=== PATIENT | female | born 1955 | race Caucasian/White ===

== ENCOUNTER → 2016-06-06 | Outpatient (CLI) | payer OTHER ==
[~2016-06-06] MED LIST: CETI10TA84 PO; CYAN10005 PO; DILT120C PO; FLUT0.0529; HYG25 PO; INSU100I17 SC; INSU100I2 SQ; INSU1INJ15 SQ; INSUINJ12 SQ; LOSA100T65 PO; METF1TAB53 PO; NORT10CA2 PO; PANT1TAB3 PO; RANI150T3 PO; SIMV20TA2 PO
[2016-06-06 17:52] LABS: HEMATOCRIT 37.7 % (37-47); MEAN CELL VOLUME 78.9 fL (80-100); MEAN CORPUSCULAR HEMOGLOBIN 25.9 pg (25-34); MEAN CORPUSCULAR HGB CONC 32.9 g/dl (32-36); MEAN PLATELET VOLUME 9.3 fL (7.4-10.4); PLATELET COUNT 368 K/uL (130-400); RED BLOOD COUNT 4.78 M/uL (4.2-5.4); WHITE BLOOD COUNT 11.41 K/uL (4.8-10.8)
[2016-06-06 18:59] LABS: ALT/SGPT 26 U/L (12-78); AST/SGOT 18 U/L (15-37); BLOOD UREA NITROGEN 16 mg/dl (7-18); BUN/CREATININE RATIO 13.3 (10-20); CALCIUM 9.3 mg/dl (8.5-10.1); CARBON DIOXIDE 29 mmol/L (21-32); CHLORIDE 104 mmol/L (98-107); GLUCOSE 100 mg/dl (70-99); POTASSIUM 3.5 mmol/L (3.5-5.1); SODIUM 141 mmol/L (136-145)
[2016-06-06 19:02] LABS: ALB/GLOB RATIO 0.9 (0.9-2); ALKALINE PHOSPHATASE 117 U/L (45-117)
== END | disposition home or self-care (01) ==
LOC: C.LABPVFM 14:45
PROVIDERS: ATTEND Internal Medicine Cardiovascular Disease
DX: R00.2 Palpitations (principal)

== ENCOUNTER → 2016-07-21 | Outpatient (CLI) | payer OTHER ==
[~2016-07-21] MED LIST changes: -PANT1TAB3 PO; +PANT1TAB48 PO
[2016-07-21 13:10] LABS: ALT/SGPT 21 U/L (12-78); AST/SGOT 12 U/L (15-37); BLOOD UREA NITROGEN 15 mg/dl (7-18); CALCIUM 9.2 mg/dl (8.5-10.1); CARBON DIOXIDE 28 mmol/L (21-32); CHLORIDE 103 mmol/L (98-107); GLUCOSE 130 mg/dl (70-99); POTASSIUM 4.1 mmol/L (3.5-5.1); SODIUM 141 mmol/L (136-145)
[2016-07-21 13:13] LABS: ALB/GLOB RATIO 0.9 (0.9-2); ALKALINE PHOSPHATASE 116 U/L (45-117); CHOLESTEROL 123 mg/dl (0-200); CHOLESTEROL/HDL RATIO 3.3; HDL CHOLESTEROL 37 mg/dl; LDL CHOLESTEROL CALCULATED 45 mg/dl; TRIGLYCERIDES 205 mg/dl (0-150); VERY LOW DENSITY LIPOPROT CALC 41 mg/dl
[2016-07-21 13:33] LABS: ESTIMATED AVERAGE GLUCOSE 143 mg/dl; HA1C FLAG Normal (Normal)
[2016-07-21 13:36] LABS: RATIO 18.3 mcg/mg (0-30.0)
== END | disposition home or self-care (01) ==
LOC: C.LABPVFM 09:44
PROVIDERS: ATTEND Family Medicine
DX: I10 Essential (primary) hypertension (principal); E78.00 Pure hypercholesterolemia, unspecified; K21.9 Gastro-esophageal reflux disease without esophagitis; E11.49 Type 2 diabetes mellitus with other diabetic neurological complication; E11.65 Type 2 diabetes mellitus with hyperglycemia

== ENCOUNTER → 2016-09-14 | Outpatient (CLI) | payer OTHER ==
--- NOTE | 2016-09-14 13:39 | DIAGNOSTIC IMAGING REPORT ---
CHEST AND ABDOMEN 2 VIEWS HISTORY: LEFT FLANK PAIN COMPARISON: FINDINGS: Cardiac silhouette is top normal in size. A few linear densities at the left lung base favor subsegmental atelectasis. The right lung is clear. No pleural effusions. No pneumothorax. No pneumoperitoneum. No pneumatosis. Cholecystectomy. The bowel gas pattern is unremarkable. No dilated loops of bowel to suggest obstruction. Round calcifications in the deep pelvis are nonspecific but favor phleboliths. No renal or ureteral calculi identified. IMPRESSION: No acute cardiopulmonary process. No evidence for bowel obstruction. Electronically signed by: Riccardo Stallworth M.D. 09/14/2016 1:37 PM Dictated Date/Time: 09/14/2016 1:25 PM
== END | disposition home or self-care (01) ==
LOC: C.RADPV 11:52
PROVIDERS: ATTEND Family Medicine
DX: R10.9 Unspecified abdominal pain (principal)

== ENCOUNTER → 2016-12-03 | Outpatient (CLI) | payer OTHER ==
[2016-12-03 13:26] LABS: ESTIMATED AVERAGE GLUCOSE 166 mg/dl; HA1C FLAG Normal (Normal)
[2016-12-03 13:38] LABS: ALT/SGPT 26 U/L (12-78); AST/SGOT 17 U/L (15-37); BLOOD UREA NITROGEN 20 mg/dl (7-18); BUN/CREATININE RATIO 20.1 (10-20); CALCIUM 9.8 mg/dl (8.5-10.1); CARBON DIOXIDE 26 mmol/L (21-32); CHLORIDE 106 mmol/L (98-107); GLUCOSE 92 mg/dl (70-99); POTASSIUM 3.7 mmol/L (3.5-5.1); SODIUM 141 mmol/L (136-145)
[2016-12-03 13:41] LABS: ALB/GLOB RATIO 0.8 (0.9-2); ALKALINE PHOSPHATASE 122 U/L (45-117); CHOLESTEROL 135 mg/dl (0-200); CHOLESTEROL/HDL RATIO 3.4; HDL CHOLESTEROL 40 mg/dl; LDL CHOLESTEROL CALCULATED 41 mg/dl; TRIGLYCERIDES 269 mg/dl (0-150); VERY LOW DENSITY LIPOPROT CALC 54 mg/dl
[2016-12-03 14:20] LABS: RATIO 31.8 mcg/mg (0-30.0)
== END | disposition home or self-care (01) ==
LOC: C.LABPVFM 09:44
PROVIDERS: ATTEND Family Medicine
DX: K21.9 Gastro-esophageal reflux disease without esophagitis (principal); F41.8 Other specified anxiety disorders; E11.49 Type 2 diabetes mellitus with other diabetic neurological complication; E11.65 Type 2 diabetes mellitus with hyperglycemia; R00.2 Palpitations; E78.00 Pure hypercholesterolemia, unspecified

== ENCOUNTER → 2017-01-24 | Outpatient (CLI) | payer OTHER | END | disposition home or self-care (01) | LOC: C.PAPS 08:27 | PROVIDERS: ATTEND Family Medicine | DX: Z12.4 Encounter for screening for malignant neoplasm of cervix (principal) ==

== ENCOUNTER → 2017-02-19 | Outpatient (CLI) | payer OTHER | END | disposition home or self-care (01) | LOC: C.MAMM 09:53 | PROVIDERS: ATTEND Family Medicine | DX: E28.319 Asymptomatic premature menopause (principal) ==

== ENCOUNTER → 2017-02-21 | Outpatient (CLI) | payer OTHER ==
--- NOTE | 2017-02-21 15:58 | MAMMOGRAPHY REPORT ---
BILATERAL DIGITAL SCREENING MAMMOGRAM TOMOSYNTHESIS WITH CAD: 02/21/2017 CLINICAL HISTORY: Routine screening. TECHNIQUE: Breast tomosynthesis in addition to standard 2D mammography was performed. Current study was also evaluated with a Computer Aided Detection (CAD) system. COMPARISON: Comparison is made to exams dated: 02/21/2016 mammogram, 02/17/2015 mammogram, 01/11/2014 m ammogram, 01/07/2013 mammogram, 01/07/2012 mammogram, and 01/01/2011 mammogram - [facility] er. BREAST COMPOSITION: There are scattered areas of fibroglandular density in both breasts. FINDINGS: No suspicious masses, calcifications, or areas of architectural distortion are noted in ei ther breast. There has been no significant interval change compared to prior exams. IMPRESSION: ACR BI-RADS CATEGORY 1: NEGATIVE There is no mammographic evidence of malignancy. A 1 year screening mammogram is recommended. The pa tient will receive written notification of the results. Approximately 10% of breast cancers are not detected with mammography. A negative mammographic report should not delay biopsy if a clinically suggestive mass is present. Chloe Segovia M.D. ah/:02/21/2017 15:41:35 Reading Teacher: Nitish MURRIETA(Jennifer)(M), [facility] letter sent: Normal 1/2 BI-RADS Code: ACR BI-RADS Category 1: Negative
== END | disposition home or self-care (01) ==
LOC: C.MAMM 10:43
PROVIDERS: ATTEND Family Medicine
DX: Z12.31 Encounter for screening mammogram for malignant neoplasm of breast (principal)

== ENCOUNTER → 2017-06-10 | Outpatient (CLI) | payer OTHER ==
[~2017-06-10] MED LIST changes: +PANT1TAB3 PO; -PANT1TAB48 PO
[2017-06-10 18:42] LABS: ALBUMIN 3.8 gm/dl (3.4-5.0); ALT/SGPT 21 U/L (12-78); AST/SGOT 14 U/L (15-37); BLOOD UREA NITROGEN 19 mg/dl (7-18); CALCIUM 9.3 mg/dl (8.5-10.1); CARBON DIOXIDE 27 mmol/L (21-32); CREATININE 1.08 mg/dl (0.60-1.20); GLUCOSE 55 mg/dl (70-99); POTASSIUM 3.7 mmol/L (3.5-5.1); SODIUM 138 mmol/L (136-145)
[2017-06-10 18:45] LABS: HEMOGLOBIN A1C 6.8 % (4.5-5.6)
[2017-06-10 18:51] LABS: ALKALINE PHOSPHATASE 108 U/L (45-117); CHOLESTEROL 134 mg/dl (0-200); LDL CHOLESTEROL CALCULATED 52 mg/dl; TOTAL PROTEIN 8.4 gm/dl (6.4-8.2)
== END | disposition home or self-care (01) ==
LOC: C.LABPVFM 11:37
PROVIDERS: ATTEND Family Medicine
DX: I10 Essential (primary) hypertension (principal); E78.00 Pure hypercholesterolemia, unspecified; G43.909 Migraine, unspecified, not intractable, without status migrainosus; E11.49 Type 2 diabetes mellitus with other diabetic neurological complication; E11.65 Type 2 diabetes mellitus with hyperglycemia; F41.8 Other specified anxiety disorders; I47.1 Supraventricular tachycardia; Z11.59 Encounter for screening for other viral diseases; E83.42 Hypomagnesemia

== ENCOUNTER → 2017-09-29 | Outpatient (CLI) | payer OTHER ==
[~2017-09-29] MED LIST changes: +DILT-213 PO; -DILT120C PO
--- NOTE | 2017-09-30 05:39 | PAP/PSG TECHNICIAN REPORT ---
[facility] [employer] Polysomnogram Report Study name: None Report date: 09/30/2017 Study date: 09/29/2017 Referring Physician: Lewis Mcknight M.D. Name: MARJORIE VALE Interpreting Physician: Lewis Mcknight M.D. Date of : 1955 First [employer] Sander[facility] Sex: Female Age: 62 StudyType: PSG PAP Weight: 256 lbs Height: 62 years, Height 5' 7" Neck Circum: 18 inches BMI: 40.09 Medications: Atorvastatin Calcium 20 mg, Cetirizine 10 mg, Chlorthaldone 25 mg, Diltiazem 120 mg, Doxycycline Monohydrate 100 mg, Escitalopram Oxalate 10 mg, Fluticasone Propionate 50 MCG/ACT, Losartan Potassium 100 mg, Magnesium 250 mg, Metformin 1000 mg, nocolog, Ranitidine 150 mg, Topiramate 50 mg, Vitamin B-12 1000 MCG, Vitamin D 1000 units Patient History 62 yr. old female here for a new titration sleep study. Patient had a HST that showed an CHARANJIT of 58.3. ESS 19/21 (patient does not drive) Parameters Monitored NPSG: E1-M2, E2-M1, Fp1-M2, Fp2-M1, F3-M2, F4-M2, F4-M1, C3-M2, C4-M2, C4-M1, O1-M2, O2-M2, O2-M1, T3-M2, T4-M1, P3-M2, P4-M1, CHIN1, CHIN2, HR, EKG, Legs, PFLOW, SNOR, FLOW, CFLOW, Tidal Volume, THOR, ABDO, SpO2, PLTH, CPRESS, ETCO2 Wave, ETCO2, pH Sleep Architecture Sleep Stages Time at Lights Off 10:43:46 PM STAGES Time (min.) TST (%) Time at Lights On 5:26:16 AM Wake 65.0 -- Total Recording Time (TRT) 402.50 min. N1 23.0 7 Total Sleep Period (TSP) 388.0 min. N2 156.0 46 Total Sleep Time (TST) 337.5min. N3 10.0 3 Awake Time 65.0 min. REM 148.5 44 Wake after Sleep Onset 50.5 min. Sleep Efficiency (SE) 84 % Sleep Onset Latency (STACEY) 14.5 min. Number of Stage 1 Shifts None Awakenings 6 Stage Changes 40 Number of REM periods 3 REM 148.5 44 REM Latency 143.0 min. NREM 189.0 56 Body Position Analysis Supine Right Left Side Prone Vertical Total Sleep Time (min.) 346.4 0.0 7.3 7.27 0.0 0.7 Total Sleep Time (%) 98% 0% 2% 2 0% N/A% Total Sleep Time REM (min.) 148.5 0.0 0.0 None 0.0 0.0 Total Sleep Time NREM (min.) 181.7 0.0 7.3 None 0.0 0.0 Intermittent Wake (min.) 16.1 0.0 48.2 None 0.0 0.7 Total Sleep Period (%) 89% None None None None None Arousals Myoclonus (PLM) * Events Count Index Events Count Index Spontaneous 2 0 Events Awake (PLMW) 9 8.3 Respiratory 4 0.9 Events Asleep w/ Arousal (PLMA) 5 0.9 PLM 5 1 Events Asleep w/o Arousal (PLMS) 61 10.8 Snoring 7 1 Total Asleep 66 11.7 Total 18 3 Total 75 11 Respiratory Analysis * CA OA MA CH H RERA Total Count 2 50 1 0 107 0 160 Index 0.4 8.9 0.2 0 19.0 0 28.4 Mean Duration 13.9 15.8 27.8 0.00 24.5 0.0 21.7 Longest Duration 16.9 45.9 27.8 0.00 27.8 0.0 64.8 Respiratory Event Summary Total Supine ~Supine Right Left Prone REM NREM Apneas Count 53 53 0 N/A 0 N/A 14 39 Index 9.4 10 0 N/A 0.0 N/A 6 12 Hypopneas (4% Desat) Count 107 107 0 N/A 0 N/A 41 66 Index 19.0 19.4 0 N/A 0.0 N/A 16.6 21.0 Apneas & All Hypopneas Count 160 160 0 N/A 0 N/A 55 105 Index 28.4 29 0 N/A 0 N/A 22.2 33.3 Respiratory Events (Maternal Child Nurse+All Hyp+RERA) Count 160 160 0 N/A 0 N/A 55 105 Index 28.4 29 0 N/A 0.0 N/A 22.2 33.3 Respiratory Related Arousal Count 4 160 0 N/A 0 N/A 0 5 Index 0.9 1 0 N/A 0 N/A 0 2 Snoring Analysis Supine Right Left Prone REM NREM Total Snore duration 53.4 min Snores count 1,829 N/A 15 N/A 773 1,071 1,844 Snore mean duration 1.7 Sec Snores index 332 N/A 124 N/A 312.3 340.0 327.8 TST with snoring (%) 15.8% Desaturation Event Summary: Minimum %SpO2 Event Count Mean/Min/Max Duration(sec.) Desaturation Index % Time In Bed > 90 134 25.1 / 5.5 / 60.0 21.8 91.8 86 - 90 14 20.1 / 5.5 / 29.3 33.9 6.2 81 - 85 2 16.8 / 11.3 / 22.3 18.6 1.6 76 - 80 0 N/A 0.0 0.4 71 - 75 0 N/A 0.0 0.0 66 - 70 0 N/A 0.0 0.0 61 - 65 0 N/A 0.0 0.0 56 - 60 0 N/A 0.0 0.0 51 - 55 0 N/A 0.0 0.0 < 50 0 N/A 0.0 0.0 Total REM NREM Awake <50% 0.0 min. 0.0 min. 0.0 min. 0.0 min. 51 - 60% 0.0 min. 0.0 min. 0.0 min. 0.0 min. 61 - 70% 0.0 min. 0.0 min. 0.0 min. 0.0 min. 71 - 80% 1.7 min. 1.7 min. 0.0 min. 0.0 min. 81 - 90% 31.3 min. 18.4 min. 12.6 min. 0.3 min. 91 - 100% 369.5 min. 128.4 min. 176.5 min. 64.6 min. Average 94 94 94 95 Minimum SpO2 75 75 82 88 Desaturation Event Index 21.3 17.8 30.8 1.8 # Desat. Events below 89% 62 32 30 0 Time(%) with Saturation below 89% 4.4 3.4 1.0 0.0 Time(min.) with Saturation below 89% 17.7 13.8 3.9 0.1 Time (mins) REM (mins) NREM (mins) % of TST SpO2 Below 90% 102 36 N66 7.0 SpO2 Below 88% 23 0 0 4 Heart Rate Analysis Min (bpm) Max (bpm) Average (bpm) Awake 74 96 81 NREM 70 94 80 REM 71 98 85 Overall 70 98 82 Supplemental O2 Values Minimum O2 level: None Value Start Time End Time First [employer] Comments MS. Vale slept elevated in the left and supine positions. No cardiac arrhythmia or PLMs noted. No bruxism noted. CPAP was initiated at +4 CMH2O room air and up-titrated to a level of +15 CMH2O Cflex 1 ,patient was still having apneas and was switched to BIPAP. PAP initiated at an IPAP of +16 CMH2O and an EPAP of +12 CMH2O up-titrated to an optimal level of: IPAP +25 CMH2O, EPAP +19 CMH20 BiFlex 2. . A small Matchup and Ewirelessgear simplus was used during titration. MS. Vale did not wake to use the restroom during the night. MS. Vale stated, I slept better than I do at home. The final report will be interpreted and signed by a sleep physician. The completed physician report will then be placed in the patient medical record. Therapy Event: Therapy (cm H20) 4 5 6 7 8 9 10 11 12 13 Total Time at Pressure (min.) 31.0 5.7 6.4 6.9 7.9 12.6 7.3 9.2 61.8 9.8 TST at Pressure (min.) 13.6 5.7 6.4 6.9 7.9 12.6 7.3 9.2 25.3 9.8 # Periods 1 1 1 1 1 1 1 1 1 1 Sleep Onset (min.) 14.4 0.0 0.0 0.0 0.0 0.0 0.0 0.0 0.0 0.0 REM Onset (min.) N/A N/A N/A N/A N/A N/A N/A N/A N/A 8.5 Sleep Efficiency % 44 100 100 100 100 100 100 100 40 100 Wakefulness (%) 56.0 0.0 0.0 0.0 0.0 0.0 0.0 0.0 59.1 0.0 Wakefulness (min.) 17.4 0.0 0.0 0.0 0.0 0.0 0.0 0.0 36.5 0.0 NREM 1 (%) 22.6 17.4 0.0 0.0 0.0 0.0 0.0 5.4 8.1 0.0 NREM 1 (min.) 7.0 1.0 0.0 0.0 0.0 0.0 0.0 0.5 5.0 0.0 NREM 2 (%) 21.4 82.6 100.0 100.0 100.0 100.0 100.0 94.6 32.8 94.9 NREM 2 (min.) 6.6 4.7 6.4 6.9 7.9 12.6 7.3 8.7 20.3 9.3 NREM 3 (%) 0.0 0.0 0.0 0.0 0.0 0.0 0.0 0.0 0.0 0.0 NREM 3 (min.) 0.0 0.0 0.0 0.0 0.0 0.0 0.0 0.0 0.0 0.0 REM (%) 0.0 0.0 0.0 0.0 0.0 0.0 0.0 0.0 0.0 5.1 REM (min.) 0.0 0.0 0.0 0.0 0.0 0.0 0.0 0.0 0.0 0.5 # Arousals 3 2 0 0 0 2 0 1 2 0 Arousal Index 13.2 20.9 0.0 0.0 0.0 9.5 0.0 6.5 4.7 0.0 # Snore 72 44 65 78 88 108 56 101 217 26 Snore Index 317.3 460.4 609.2 679.8 666.8 513.2 457.5 657.6 515.2 159.2 AHI 22.0 62.8 112.5 104.6 98.5 80.8 73.5 19.5 19.0 24.5 AHI Supine 47.3 62.8 112.5 104.6 98.5 80.8 73.5 19.5 19.0 24.5 AHI Non-Supine 0.0 N/A N/A N/A N/A N/A N/A N/A N/A N/A NREM AHI 22.0 62.8 112.5 104.6 98.5 80.8 73.5 19.5 19.0 25.8 REM AHI N/A N/A N/A N/A N/A N/A N/A N/A N/A 0.0 RDI 22.0 62.8 112.5 104.6 98.5 80.8 73.5 19.5 19.0 24.5 # Obstructive 0 1 7 7 10 4 0 0 3 0 # Central Ap 0 1 0 0 0 0 0 0 0 0 # Mixed 0 0 0 0 0 0 0 0 0 0 # Hypopneas 5 4 5 5 3 13 9 3 5 4 RERAS 0 0 0 0 0 0 0 0 0 0 Total Respiratory Events 5 6 12 12 13 17 9 3 8 4 Time Below SpO2 89.00% (min.) 0.1 0.5 0.6 0.7 0.5 0.5 0.4 0.1 0.2 0.0 Mean NREM SpO2 (%) 93 93 92 92 92 93 94 94 94 93 Mean REM SpO2 (%) N/A N/A N/A N/A N/A N/A N/A N/A N/A 96 Mean Sleep SpO2 (%) 93 93 92 92 92 93 94 94 94 93 Min NREM SpO2 (%) 88 82 84 84 86 86 85 88 87 89 Min REM SpO2 (%) N/A N/A N/A N/A N/A N/A N/A N/A N/A 91 Position Supine (min.) 6.3 5.7 6.4 6.9 7.9 12.6 7.3 9.2 25.3 9.8 Position Non-supine (min.) 7.3 0.0 0.0 0.0 0.0 0.0 0.0 0.0 0.0 0.0 LM Index Sleep 4.4 20.9 56.2 26.1 22.7 14.3 16.3 52.1 21.4 0.0 LM Index NREM 4.4 20.9 56.2 26.1 22.7 14.3 16.3 52.1 21.4 0.0 LM Index REM N/A N/A N/A N/A N/A N/A N/A N/A N/A 0.0 Mean Heart Rate (bpm) 81 82 81 80 79 80 80 82 80 78 Min Heart Rate (bpm) 76 73 72 72 70 71 71 74 73 71 Therapy (cm H20) 14 15 16/12 18/14 16 18 Total Time at Pressure (min.) 47.7 4.8 5.4 11.3 18.9 9.9 10.4 20.9 76.0 38.3 TST at Pressure (min.) 36.7 4.8 5.4 11.3 18.9 9.9 10.4 20.9 76.0 38.3 # Periods 1 1 1 1 1 1 1 1 1 1 Sleep Onset (min.) 0.0 0.0 0.0 0.0 0.0 0.0 0.0 0.0 0.0 0.0 REM Onset (min.) 44.2 0.0 0.0 0.0 0.0 0.0 0.0 0.0 0.0 N/A Sleep Efficiency % 77 100 100 100 100 100 100 100 100 100 Wakefulness (%) 23.0 0.0 0.0 0.0 0.0 0.0 0.0 0.0 0.0 0.0 Wakefulness (min.) 11.0 0.0 0.0 0.0 0.0 0.0 0.0 0.0 0.0 0.0 NREM 1 (%) 14.7 0.0 0.0 0.0 0.0 0.0 9.6 0.0 1.3 1.3 NREM 1 (min.) 7.0 0.0 0.0 0.0 0.0 0.0 1.0 0.0 1.0 0.5 NREM 2 (%) 54.9 0.0 0.0 0.0 0.0 0.0 0.0 0.0 14.7 72.6 NREM 2 (min.) 26.2 0.0 0.0 0.0 0.0 0.0 0.0 0.0 11.2 27.8 NREM 3 (%) 0.0 0.0 0.0 0.0 0.0 0.0 0.0 0.0 0.0 26.1 NREM 3 (min.) 0.0 0.0 0.0 0.0 0.0 0.0 0.0 0.0 0.0 10.0 REM (%) 7.4 100.0 100.0 100.0 100.0 100.0 90.4 100.0 84.0 0.0 REM (min.) 3.5 4.8 5.4 11.3 18.9 9.9 9.4 20.9 63.8 0.0 # Arousals 1 0 0 0 0 1 1 0 3 2 Arousal Index 1.6 0.0 0.0 0.0 0.0 6.0 5.7 0.0 2.4 3.1 # Snore 176 14 34 93 100 51 17 79 387 38 Snore Index 287.6 174.3 380.0 492.6 317.1 307.8 97.7 227.2 305.7 59.5 AHI 19.6 74.7 55.9 90.0 34.9 30.2 5.7 11.5 5.5 4.7 AHI Supine 19.6 74.7 55.9 90.0 34.9 30.2 5.7 11.5 5.5 4.7 AHI Non-Supine N/A N/A N/A N/A N/A N/A N/A N/A N/A N/A NREM AHI 18.1 N/A N/A N/A N/A N/A 0.0 N/A 14.8 4.7 REM AHI 34.0 74.7 55.9 90.0 34.9 30.2 6.4 11.5 3.8 N/A RDI 19.6 74.7 55.9 90.0 34.9 30.2 5.7 11.5 5.5 4.7 # Obstructive 2 0 2 6 4 1 0 0 2 1 # Central Ap 0 0 0 0 0 0 0 0 1 0 # Mixed 0 0 0 0 0 0 0 0 1 0 # Hypopneas 10 6 3 11 7 4 1 4 3 2 RERAS 0 0 0 0 0 0 0 0 0 0 Total Respiratory Events 12 6 5 17 11 5 1 4 7 3 Time Below SpO2 89.00% (min.) 2.2 3.5 2.7 2.9 1.6 1.2 0.1 0.0 0.0 0.0 Mean NREM SpO2 (%) 94 N/A N/A N/A N/A N/A 94 N/A 95 95 Mean REM SpO2 (%) 89 86 87 91 93 93 95 95 95 N/A Mean Sleep SpO2 (%) 93 86 87 91 93 93 95 95 95 95 Min NREM SpO2 (%) 84 N/A N/A N/A N/A N/A 87 N/A 90 90 Min REM SpO2 (%) 76 76 75 80 80 79 87 89 91 N/A Position Supine (min.) 36.7 4.8 5.4 11.3 18.9 9.9 10.4 20.9 76.0 38.3 Position Non-supine (min.) 0.0 0.0 0.0 0.0 0.0 0.0 0.0 0.0 0.0 0.0 LM Index Sleep 3.3 0.0 11.2 0.0 19.0 24.1 0.0 8.6 8.7 3.1 LM Index NREM 3.6 N/A N/A N/A N/A N/A 0.0 N/A 0.0 3.1 LM Index REM 0.0 0.0 11.2 0.0 19.0 24.1 0.0 8.6 10.3 N/A Mean Heart Rate (bpm) 79 87 89 86 88 86 83 84 83 80 Min Heart Rate (bpm) 72 83 82 80 81 74 75 78 75 75
--- NOTE | 2017-10-01 16:43 | POLYSOMNOGRAPH REPORT ---
CLINICAL DATA: 62-year-old female with BMI of 40.1 referred by myself and Dr. Smith for a PAP titration study. The patient had a home sleep test which showed severe sleep apnea with an CHARANJIT of 58.3. SLEEP ARCHITECTURE: Total sleep period was 388 minutes. Total sleep time was 337.5 minutes divided between 189 minutes of non-REM sleep and 148.5 minutes of REM sleep. Sleep onset latency was 14.5 minutes. REM latency was 143 minutes. Sleep efficiency was 84%. Wake after sleep onset was 50.5 minutes. Sleep consisted of stage N1 7%, stage N2 46%, stage N3 3%, and REM 44%. AROUSAL DATA: Eighteen arousals were recorded for an index of 3 per hour. PLM DATA: 66 limb movements during sleep were noted for an index of 11.7 per hour with arousal index of 0.9 per hour. RESPIRATORY DATA: The AHI was 28.4. There were 2 central, 50 obstructive, and 1 mixed apneic episode. The longest apneic episode was 45.9 seconds. There were 107 hypopneic episodes with a longest duration being 27.8 seconds. OXIMETRY DATA: Nocturnal hypoxemia was seen. Oxygen nisreen was 75% during REM. Mean saturation was 94%. Time below 88% was 23 minutes. EKG: Heart rates ranged from 70-98 beats per minute. No arrhythmias were noted. CFD ENGINEER'S COMMENTS AND TREATMENT SUMMARY: The patient slept in the left and supine position. The patient was treated initially with CPAP but then was still having apneic episodes so she was changed to BiPAP. She was started at BiPAP 16/12 and was eventually titrated up to a final pressure setting of BiPAP 25/19, Bi-Flex setting #2 with a small Yusuf and Paykel Simplus mask. At her final pressure setting, patient slept for 38.3 minutes with an AHI of 4.7. IMPRESSION: Very severe sleep apnea/hypopnea corrected with BiPAP 25/19, Bi-Flex setting #2. RECOMMENDATIONS: The patient will be seen back in the clinic to be started on treatment. This high BIPAP pressure may be difficult to tolerate long-term. Clinical correlation is needed. [facility]
== END | disposition home or self-care (01) ==
LOC: C.NEUR 20:00
PROVIDERS: ATTEND Internal Medicine Pulmonary Disease
DX: R53.83 Other fatigue (principal); G47.34 Idiopathic sleep related nonobstructive alveolar hypoventilation; G47.33 Obstructive sleep apnea (adult) (pediatric)

== ENCOUNTER → 2018-01-21 | Outpatient (CLI) | payer OTHER ==
[~2018-01-21] VITALS: Ht 165.1 cm; Wt 114.9 kg
[2018-01-21 12:48] VITALS: BP 116/75; PULSE 97; Ht 165.1 cm; Wt 114.9 kg
== END | disposition home or self-care (01) ==
LOC: C.NEUR 12:06
PROVIDERS: ATTEND Physician Assistant Medical
DX: G47.33 Obstructive sleep apnea (adult) (pediatric) (principal); G47.34 Idiopathic sleep related nonobstructive alveolar hypoventilation; E66.9 Obesity, unspecified; Z68.41 Body mass index [BMI] 40.0-44.9, adult; E11.9 Type 2 diabetes mellitus without complications; F41.8 Other specified anxiety disorders; I10 Essential (primary) hypertension; J45.909 Unspecified asthma, uncomplicated; Z79.899 Other long term (current) drug therapy

== ENCOUNTER 2021-02-14 14:41 | Inpatient (IN) ==
[2021-02-14] MEDS ORDERED: dexAMETHasone 6 MG in SYRINGE 0 ML IV ONE (15:37)
[2021-02-14] MEDS ORDERED: ACETAMINOPHEN 500 MG TAB PO STA (15:42)
[2021-02-14 15:47] LABS: Hematocrit (blood only) 39.3 % (37-47); Hemoglobin 12.6 g/dL (12.0-16.0); Mean Corpuscular Hgb Conc 32.1 g/dL (32-36); Mean Corpuscular Volume 78.1 fL (80-100); Platelet Count 214 K/uL (130-400); RDW Coefficient of Variation 17.2 % (11.5-14.5); RDW Standard Deviation 48.9 fL (36.4-46.3); Red Blood Count 5.03 M/uL (4.2-5.4); White Blood Count 5.18 K/uL (4.8-10.8)
[2021-02-14 15:55] LABS: Alanine Aminotransferase 37 U/L (12-78); Albumin Level 3.6 gm/dl (3.4-5.0); Aspartate Aminotransferase 52 U/L (15-37); BUN Creatinine Ratio 16.4 (10-20); Blood Urea Nitrogen 34 mg/dl (7-18); Calcium 8.3 mg/dl (8.5-10.1); Carbon Dioxide 24 mmol/L (21-32); Chloride 104 mmol/L (98-107); Creatinine Clr Calc Pharmacy 35.2 ml/min; Est GFR (African American) 29.3 ml/min; Est GFR (Non-African American) 25.3 ml/min; Glucose 143 mg/dl (70-99); Potassium 3.4 mmol/L (3.5-5.1); Sodium 135 mmol/L (136-145)
[2021-02-14 15:59] LABS: Albumin Globulin Ratio 0.7 (0.9-2); Alkaline Phosphatase 96 U/L (45-117); Bilirubin,Total 0.3 mg/dl (0.2-1); Globulin 5.1 gm/dl (2.5-4.0); Total Protein 8.7 gm/dl (6.4-8.2); Troponin I < 0.015 ng/ml (0-0.045)
[2021-02-14] MEDS ORDERED: SODIUM CHLORIDE 0.9% 1000ML 1,000 ML IV ONE (16:05)
[2021-02-14] MEDS ORDERED: dexAMETHasone**PF** 10 MG/ML VIAL IV ONE (16:15)
[2021-02-14 16:16] LABS: Basophils # (auto) 0.01 K/uL (0-0.2); Basophils % (auto) 0.2 %; Immature Granulocytes # (auto) 0.03 K/uL (0.00-0.02); Immature Granulocytes % (auto) 0.6 %; Lymphocytes # (auto) 1.22 K/uL (1.2-3.4); Lymphocytes % (auto) 23.6 %; Monocytes # (auto) 0.22 K/uL (0.11-0.59); Monocytes % (auto) 4.2 %; Neutrophils % (auto) 71.4 %; Poikilocytosis Present; Polychromasia 1+
--- NOTE | 2021-02-14 16:32 | XRay Report ---
XR chest 1V portable CLINICAL HISTORY: cough, sob, covid sxs COMPARISON STUDY: December 08, 2018 FINDINGS: No pneumothorax. Mild blunting of the left costophrenic angle which could represent trace left pleural effusion. Multiple mixed reticular and airspace opacities are seen within bilateral lower lungs and more promin ent on the left. Evaluation is slightly limited due to overlying pannus and patient body habitus. Cardiomediastinal silhouette is within upper limits of normal and partially obscured by surrounding o pacities. Vasculature is indistinct.. Degenerative changes of the spine. IMPRESSION: 1. Bilateral mixed reticular and airspace opacities, more prominent within left mid to lower lung an d possible associated with minimal left pleural effusion. 2. Mildly enlarged cardiac silhouette. 3. Limited exam due to patient body habitus and overlying pannus ACT 112: Negative or not required by law. The above report was generated using voice recognition software. It may contain grammatical, syntax o r spelling errors. Electronically signed by: Lottie Roche DO 02/14/2021 4:31 PM
--- NOTE | 2021-02-14 17:59 | History & Physical Report ---
Date of Service February 14, 2021 Assessment & Plan (1) Pneumonia due to COVID-19 virus: Plan: Patient has multifocal pneumonia seen on x-ray She has mild acute hypoxic respiratory failure Admit to Covid isolation Patient was given dexamethasone 6 mg IV x1 in the ER, will continue daily for the next 9 days Patient has renal insufficiency, contraindication to remdesivir. Can reevaluate over the next 24 hours if renal function improves Albuterol nebs every 6 hours O2 support D-dimer ordered, if positive will need CT angiogram to rule out PE. If negative, DVT prophylaxis with heparin (2) Paroxysmal SVT (supraventricular tachycardia): Plan: Continue cardiac medications as ordered, I do see she is on diltiazem 120 mg a day (3) Acid reflux disease: Plan: Continue PPI (4) Hypercholesterolemia: Plan: Continue atorvastatin 20 daily (5) Severe obstructive sleep apnea: Plan: Will order CPAP device while patient remains here (6) Hypertension: Plan: Monitor blood pressure I will hold chlorthalidone and losartan for renal dysfunction Continue diltiazem as noted above, consider additional agents depending on progress (7) Diabetes mellitus, type 2: Plan: Patient is on Lantus 45 units in the morning and 65 units in the evening which we will continue, he may need to increase with administration of dexamethasone We will add sliding scale. I will start clear liquid diet as patient reports significant nausea, can advance to a carb controlled diet when appropriate (8) KELLY (acute kidney injury): Plan: Hold chlorthalidone and losartan as ordered IV hydration, recheck in the morning History of Present Illness Chief Complaint: Shortness of breath Primary Care Provider: LEONEL Escobar This is a 65-year-old female past medical history of hypertension, type 2 diabetes mellitus, PSVT that presents today complaining of cough and shortness of breath. Her mother is in the room who is also experiencing similar symptoms and is also to be admitted. Patient tells me that several generations live in her house. This includes her son and his daughter, which is the patient's granddaughter. Approximately 2 weeks ago, the granddaughter was sent home from school after being exposed to another child at school that had tested positive for Covid. Last week, the granddaughter, who is 11 years old, started to show some mild URI symptoms and was taken by her father to be tested which was positive. Although the child is doing well, about 1 week ago the patient started experiencing similar symptoms. This started with a low-grade fever and some generalized fatigue. Unfortunately, this progressed to shortness of breath and a loose but nonproductive cough. Patient had significant dyspnea on exertion. She also noted that she lost her sense of taste and smell. She tried to write out the symptoms but they continue to worsen until she became very short of breath with minimal activity. This is what prompted her to come to the emergency room today. In the ER, she was found to have a room air O2 sat of 85%. She is doing much better on nasal cannula oxygen with a sat of 93%. She is febrile. She is very weak appearing and coughs throughout the interview. She does admit to me that she was not vaccinated. Patient is now being admitted with her mother to [facility] secondary to Covid pneumonia. Allergies Allergy/AdvReac Type Severity Reaction Status Date / Time Penicillins Allergy Intermediate HIVES Verified 02/14/21 09:55 Sulfa (Sulfonamide Allergy Intermediate HIVES Verified 02/14/21 09:55 Antibiotics) Home Medications Medication Instructions Recorded Confirmed Type cholecalciferol (vitamin D3) 25 1,000 unit PO QAM 07/08/18 02/14/21 History mcg (1,000 unit) capsule (Vitamin D3) cyanocobalamin (vitamin B-12) 1,000 mcg PO QAM 07/08/18 02/14/21 History 1,000 mcg tablet (Vitamin B-12) escitalopram oxalate 10 mg tablet 10 mg PO DAILY #30 tab 04/14/20 02/14/21 Rx escitalopram oxalate 5 mg tablet 5 mg PO DAILY #30 tab 04/14/20 02/14/21 Rx insulin aspart U-100 100 unit/mL See Rx Instructions SUBCUT TID #30 04/14/20 02/14/21 Rx (3 mL) subcutaneous pen (Novolog ml Flexpen U-100 Insulin aspart) blood sugar diagnostic ([employer]Touch #100 ea 06/13/20 02/14/21 Rx Ultra Blue Test Strip) topiramate 50 mg tablet 50 mg PO BID #60 tab 09/22/20 02/14/21 Rx fluticasone propionate 50 See Rx Instructions .ROUTE 10/21/20 02/14/21 Rx mcg/actuation nasal .COMPLEX #16 gram spray,suspension insulin glargine 100 unit/mL (3 45 unit SQ QAM ml 12/01/20 02/14/21 History mL) subcutaneous pen (Lantus Solostar U-100 Insulin) lancets (OneTouch UltraSoft #100 ea 12/26/20 02/14/21 Rx Lancets) atorvastatin 20 mg tablet 20 mg PO DAILY #90 tab 01/24/21 02/14/21 Rx omeprazole 20 mg capsule,delayed 20 mg PO DAILY #90 cap 01/24/21 02/14/21 Rx release cetirizine 10 mg tablet 10 mg PO DAILY 02/14/21 02/14/21 History chlorthalidone 25 mg tablet 25 mg PO DAILY 02/14/21 02/14/21 History diltiazem HCl 120 mg 120 mg PO DAILY 02/14/21 02/14/21 History capsule,extended release 24 hr insulin glargine 100 unit/mL (3 65 unit SUBCUT QPM 02/14/21 02/14/21 History mL) subcutaneous pen (Lantus Solostar U-100 Insulin) losartan 100 mg tablet 100 mg PO QPM 02/14/21 02/14/21 History metformin 1,000 mg tablet 1,000 mg PO BID 02/14/21 02/14/21 History Past Med/Surg History Medical History (Updated 02/14/21 @ 17:57 by Bob Curtis DO) Anxiety Deep vein thrombosis right thigh--unknown reason Depression with anxiety Diverticulosis GERD (gastroesophageal reflux disease) History of colon polyps Migraine Obesity Osteoarthritis Superficial thrombophlebitis Tachypnea Surgical History History of appendectomy History of cholecystectomy History of colonoscopy History of esophagogastroduodenoscopy (EGD) History of excision of lesion Neck, benign History of excision of lesion Scalp History of umbilical hernia repair Family History Mother Family history of diabetes mellitus Family hx of colon cancer Diabetes Hypertension Grandmother (Maternal) Family history of diabetes mellitus Diabetes Grandmother (Paternal) Cancer Father Heart disease Sister Lung cancer Other No family history of adverse response to anesthesia Denies family history of Ovarian cancer Prostate cancer Myocardial infarction Breast cancer Colorectal cancer Social History Smoking Status: Never smoker Second Hand Exposure: Yes (/son smokes, father smoked); Hx Alcohol Use: No Hx Substance Use: No Preferred Language: Irish Communication Ability: Effective 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 Beliefs That Will Affect Care: None marital status: Current Living Situation: Spouse, Parent and Family Current Living Situation Comment: Lives with mom, son and Feels Safe at Home: Yes Childhood Exposure to Second-Hand Smoke: Yes caffeine: Yes Dental Care, Regularly: No Physical Activity Frequency: Does not Exercise Seatbelt Use: never Sunscreen Use: No Assistive Devices: Glasses Review of Systems Constitutional: + fever, + chills, + fatigue, + weakness and + anorexia; no weight loss and no weight gain Eyes: as per Subjective / HPI Respiratory: + cough, + chest congestion, + dyspnea, + dyspnea on exertion and + wheezing; no hemoptysis and no sputum production Cardiovascular: no chest pain, no orthopnea, no palpitations, no lightheadedness and no edema Gastrointestinal: no abdominal pain, no nausea, no vomiting, no constipation and no diarrhea/loose stools Genitourinary: no dysuria, no difficulty urinating, no urinary frequency, no urinary hesitancy, no urinary urgency and no flank pain Musculoskeletal: no back pain, no neck pain, no joint pain, no stiffness and no myalgia Integumentary: no rash Neurologic: no gait abnormality, no unsteadiness, no falls and no generalized weakness Physical Exam Constitutional: + ill appearing and cooperative Neck: trachea midline, no thyromegaly Respiratory: + labored breathing Auscultation: + diminished lung sounds, + crackles, + rhonchi and + wheezes; no rales Cardiovascular: Rate/Rhythm: regular rate and regular rhythm Heart Sounds: normal S1, normal S2 and + murmur Extremities: + edema (trace) Gastrointestinal (Abdomen): Inspection/Auscultation: abdomen normal to inspection Percussion/Palpation: abdomen soft; abdomen nontender, no guarding, abdomen not rigid and no hepatosplenomegaly Skin: no rashes, warm and dry Results & Data Results & Data ([facility]) Vital Signs (Past 12 Hours) Vital Signs Temp Pulse Resp BP Pulse Ox 02/14/21 15:10 85 L 02/14/21 14:45 36.8 C 107 H 18 133/74 92 Laboratory Results Laboratory Results WBC 5.18 K/uL (4.8-10.8) 02/14/21 15:16 RBC 5.03 M/uL (4.2-5.4) 02/14/21 15:16 Hgb 12.6 g/dL (12.0-16.0) 02/14/21 15:16 Hct 39.3 % (37-47) 02/14/21 15:16 MCV 78.1 fL (80-100) L 02/14/21 15:16 MCH 25.0 pg (25-34) 02/14/21 15:16 MCHC 32.1 g/dL (32-36) 02/14/21 15:16 RDW Std Deviation 48.9 fL (36.4-46.3) H 02/14/21 15:16 RDW Coeff of Yoandy 17.2 % (11.5-14.5) H 02/14/21 15:16 Plt Count 214 K/uL (130-400) 02/14/21 15:16 MPV 10.0 fL (7.4-10.4) 02/14/21 15:16 Immature Gran % (Auto) 0.6 % 02/14/21 15:16 Neut % (Auto) 71.4 % 02/14/21 15:16 Lymph % (Auto) 23.6 % 02/14/21 15:16 Mercer % (Auto) 4.2 % 02/14/21 15:16 Eos % (Auto) 0.0 % 02/14/21 15:16 Baso % (Auto) 0.2 % 02/14/21 15:16 Neut # (Auto) 3.70 K/uL (1.4-6.5) 02/14/21 15:16 Lymph # (Auto) 1.22 K/uL (1.2-3.4) 02/14/21 15:16 Mercer # (Auto) 0.22 K/uL (0.11-0.59) 02/14/21 15:16 Eos # (Auto) 0.00 K/uL (0-0.5) 02/14/21 15:16 Baso # (Auto) 0.01 K/uL (0-0.2) 02/14/21 15:16 Immature Gran # (Auto) 0.03 K/uL (0.00-0.02) H 02/14/21 15:16 Polychromasia 1+ 02/14/21 15:16 Poikilocytosis Present 02/14/21 15:16 Sodium 135 mmol/L (136-145) L 02/14/21 15:16 Potassium 3.4 mmol/L (3.5-5.1) L 02/14/21 15:16 Chloride 104 mmol/L (98-107) 02/14/21 15:16 Carbon Dioxide 24 mmol/L (21-32) 02/14/21 15:16 Anion Gap 7.0 (3-11) 02/14/21 15:16 BUN 34 mg/dl (7-18) H 02/14/21 15:16 Creatinine 2.04 mg/dl (0.6-1.2) H 02/14/21 15:16 Est Cr Clr Drug Dosing 35.2 ml/min 02/14/21 15:16 Est GFR ( Amer) 29.3 ml/min 02/14/21 15:16 Est GFR (Non-Af Amer) 25.3 ml/min 02/14/21 15:16 BUN/Creatinine Ratio 16.4 (10-20) 02/14/21 15:16 Glucose 143 mg/dl (70-99) H 02/14/21 15:16 Calcium 8.3 mg/dl (8.5-10.1) L 02/14/21 15:16 Total Bilirubin 0.3 mg/dl (0.2-1) 02/14/21 15:16 AST 52 U/L (15-37) H 02/14/21 15:16 ALT 37 U/L (12-78) 02/14/21 15:16 Alkaline Phosphatase 96 U/L (45-117) 02/14/21 15:16 Troponin I < 0.015 ng/ml (0-0.045) 02/14/21 15:16 C-Reactive Protein 18.30 mg/dl (0-0.29) H 02/14/21 15:16 Total Protein 8.7 gm/dl (6.4-8.2) H 02/14/21 15:16 Albumin 3.6 gm/dl (3.4-5.0) 02/14/21 15:16 Globulin 5.1 gm/dl (2.5-4.0) H 02/14/21 15:16 Albumin/Globulin Ratio 0.7 (0.9-2) L 02/14/21 15:16 Procalcitonin 0.17 ng/ml (0-0.5) 02/14/21 15:16 COVID-19 Eval Order Covid19 at [facility] 02/14/21 15:17 SARS-CoV-2 (PCR) POSITIVE (Negative) A* 02/14/21 15:17 Impressions Chest X-Ray 02/14/21 15:37 XR chest 1V portable CLINICAL HISTORY: cough, sob, covid sxs COMPARISON STUDY: December 08, 2018 FINDINGS: No pneumothorax. Mild blunting of the left costophrenic angle which could represent trace left pleural effusion. Multiple mixed reticular and airspace opacities are seen within bilateral lower lungs and more prominent on the left. Evaluation is slightly limited due to overlying pannus and patient body habitus. Cardiomediastinal silhouette is within upper limits of normal and partially obscured by surrounding opacities. Vasculature is indistinct.. Degenerative changes of the spine. IMPRESSION: 1. Bilateral mixed reticular and airspace opacities, more prominent within left mid to lower lung and possible associated with minimal left pleural effusion. 2. Mildly enlarged cardiac silhouette. 3. Limited exam due to patient body habitus and overlying pannus ACT 112: Negative or not required by law. The above report was generated using voice recognition software. It may contain grammatical, syntax or spelling errors. Electronically signed by: Lottie Roche DO 02/14/2021 4:31 PM PG Care Time/CCT Total # of Minutes Spent Total Time Spent with Patient: Total time spent is greater than 50% in coordination of care (as documented) at patient's floor/unit and/or counseling patient: Coding Level of Care Code 53676 Initial Inpt Care Lvl 3 Diagnoses Paroxysmal SVT (supraventricular tachycardia) I47.1 Acid reflux disease K21.9 Hypercholesterolemia E78.00 Severe obstructive sleep apnea G47.33 Hypertension I10 Diabetes mellitus, type 2 E11.9 Pneumonia due to COVID-19 virus U07.1; J12.82 KELLY (acute kidney injury) N17.9
[2021-02-14 18:03] LABS: D Dimer 660 ug/L FEU (0-500)
--- NOTE | 2021-02-14 18:30 | Emergency Department Note ---
History of Present Illness General Chief complaint: Cough Stated complaint: COUGH,FEVER,CHILLS Time Seen by Provider: 02/14/21 15:15 Source: patient Mode of arrival: ambulatory Limitations: no limitations History of Present Illness Maximum Pain Intensity: 0 This patient is a 65-year-old female who presents to the emergency department for evaluation of symptoms of COVID-19 infection. Patient states that her symptoms began 8 days ago. She has had nasal congestion, fevers, body aches, fatigue, nausea, loss of taste/smell, and cough. She states that she is not necessarily short of breath, but when she gets up to move into anything, she becomes extremely tired and is unable to perform any of her normal daily tasks. She has had chills. She has been taking OTC Tylenol as needed for her symptoms. She does note that she has been exposed to her granddaughter, who recently tested positive for COVID-19. Patient has not been vaccinated for COVID-19. She is a diabetic. She has not been eating or drinking much due to a decreased appetite and nausea. Home Medications Medication Instructions Recorded Confirmed Type cholecalciferol (vitamin D3) 25 1,000 unit PO QAM 07/08/18 02/14/21 History mcg (1,000 unit) capsule (Vitamin D3) cyanocobalamin (vitamin B-12) 1,000 mcg PO QAM 07/08/18 02/14/21 History 1,000 mcg tablet (Vitamin B-12) escitalopram oxalate 10 mg tablet 10 mg PO DAILY #30 tab 04/14/20 02/14/21 Rx escitalopram oxalate 5 mg tablet 5 mg PO DAILY #30 tab 04/14/20 02/14/21 Rx insulin aspart U-100 100 unit/mL See Rx Instructions SUBCUT TID #30 04/14/20 02/14/21 Rx (3 mL) subcutaneous pen (Novolog ml Flexpen U-100 Insulin aspart) blood sugar diagnostic (OneTouch #100 ea 06/13/20 02/14/21 Rx Ultra Blue Test Strip) topiramate 50 mg tablet 50 mg PO BID #60 tab 09/22/20 02/14/21 Rx fluticasone propionate 50 See Rx Instructions .ROUTE 10/21/20 02/14/21 Rx mcg/actuation nasal .COMPLEX #16 gram spray,suspension insulin glargine 100 unit/mL (3 45 unit SQ QAM ml 12/01/20 02/14/21 History mL) subcutaneous pen (Lantus Solostar U-100 Insulin) lancets (OneTouch UltraSoft #100 ea 12/26/20 02/14/21 Rx Lancets) atorvastatin 20 mg tablet 20 mg PO DAILY #90 tab 01/24/21 02/14/21 Rx omeprazole 20 mg capsule,delayed 20 mg PO DAILY #90 cap 01/24/21 02/14/21 Rx release cetirizine 10 mg tablet 10 mg PO DAILY 02/14/21 02/14/21 History diltiazem HCl 120 mg 120 mg PO DAILY 02/14/21 02/14/21 History capsule,extended release 24 hr metformin 1,000 mg tablet 1,000 mg PO BID 02/14/21 02/14/21 History apixaban 5 mg tablet (Eliquis) 5 mg PO .BID as directed #60 tab 02/22/21 Rx insulin glargine 100 unit/mL (3 45 unit SUBCUT QPM #0 ml 02/22/21 02/14/21 Rx mL) subcutaneous pen (Lantus Solostar U-100 Insulin) losartan 100 mg tablet 50 mg PO QPM #0 tab 02/22/21 02/14/21 Rx Allergies Allergy/AdvReac Type Severity Reaction Status Date / Time Penicillins Allergy Intermediate HIVES Verified 02/14/21 09:55 Sulfa (Sulfonamide Allergy Intermediate HIVES Verified 02/14/21 09:55 Antibiotics) Past Med/Surg History Medical History (Updated 02/23/21 @ 21:59 by Dana Jo PA-C) Anxiety Deep vein thrombosis right thigh--unknown reason Depression with anxiety Diverticulosis GERD (gastroesophageal reflux disease) History of colon polyps Migraine Obesity Osteoarthritis Superficial thrombophlebitis Tachypnea Surgical History History of appendectomy History of cholecystectomy History of colonoscopy History of esophagogastroduodenoscopy (EGD) History of excision of lesion Neck, benign History of excision of lesion Scalp History of umbilical hernia repair Family History Mother Family history of diabetes mellitus Family hx of colon cancer Diabetes Hypertension Grandmother (Maternal) Family history of diabetes mellitus Diabetes Grandmother (Paternal) Cancer Father Heart disease Sister Lung cancer Other No family history of adverse response to anesthesia Denies family history of Ovarian cancer Prostate cancer Myocardial infarction Breast cancer Colorectal cancer Social History Smoking Status: Never smoker Second Hand Exposure: Yes (/son smokes, father smoked); Hx Alcohol Use: No Hx Substance Use: No Preferred Language: Northern Irish Communication Ability: Effective 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 Beliefs That Will Affect Care: None marital status: Unknown Current Living Situation: Family Current Living Situation Comment: Lives with mom, son and Feels Safe at Home: Yes Childhood Exposure to Second-Hand Smoke: Yes caffeine: Yes Dental Care, Regularly: No Physical Activity Frequency: Does not Exercise Seatbelt Use: never Sunscreen Use: No Assistive Devices: Glasses Review of Systems A total of 10 systems reviewed and were otherwise negative Physical Exam Vital Signs Vital Signs - 24 hr 02/14/21 14:45 02/14/21 15:10 Temperature 36.8 C Temperature Source Temporal Artery Scan Pulse Rate 107 H Respiratory Rate 18 Respiratory Effort / Characteristics Non-Labored Respiratory Depth Normal Blood Pressure 133/74 Blood Pressure Mean 93 Pulse Oximetry 92 85 L Oxygen Delivery Method Room Air Room Air Sepsis Recent Fever Within 48 Hours No Sepsis New/Unexplained Change in Mental Status No Sepsis Action Taken by Nursing No Action Required VITALS: Vitals are noted on the nurse's note and reviewed by myself. GENERAL: This is a 65-year-old female, moderately ill-appearing. SKIN: The skin was without rashes. EARS: External auditory canals clear, tympanic membranes pearly rodriguez without erythema or effusion bilaterally. EYES: Pupils equal round and reactive to light and accommodation. NOSE: Patent, turbinates without inflammation or discharge. MOUTH: Mucous membranes dry. NECK: Supple without nuchal rigidity. No lymphadenopathy. HEART: Regular rate and rhythm without murmurs gallops or rubs. LUNGS: Coarse breath sounds throughout, with diminished breath sounds in bilateral bases. ABDOMEN: Positive bowel sounds x 4. Soft, nontender to palpation. NEURO: Patient was alert and oriented to person place and time. Course Administered Medications Discontinued Medications Acetaminophen (Acetaminophen 500 Mg Tab) 1,000 mg PO NOW STA Stop: 02/14/21 15:43 Last Admin: 02/14/21 16:19 Dose: 1,000 mg Documented by: [id number] Acetaminophen (Acetaminophen 325 Mg Tab) 650 mg PO Q4H PRN PRN Reason: Pain or Fever Stop: 03/16/21 23:24 Last Admin: 02/17/21 09:17 Dose: 650 mg Documented by: [id number] Admin: 02/17/21 03:24 Dose: 650 mg Documented by: [id number] Admin: 02/16/21 05:54 Dose: 650 mg Documented by: [id number] Admin: 02/16/21 00:50 Dose: 650 mg Documented by: [id number] Admin: 02/15/21 15:36 Dose: 650 mg Documented by: [id number] Albuterol (Albuterol 0.5% Neb Soln 2.5 Mg/0.5 Ml Vial) 2.5 mg NEB Q6R INDU Stop: 03/16/21 00:59 Last Admin: 02/15/21 07:47 Dose: 2.5 mg Documented by: [id number] Admin: 02/15/21 04:55 Dose: Not Given Documented by: [id number] Admin: 02/15/21 04:55 Dose: Not Given Documented by: [id number] Admin: 02/15/21 04:55 Dose: Not Given Documented by: [id number] Admin: 02/15/21 04:55 Dose: Not Given Documented by: [id number] Admin: 02/15/21 00:35 Dose: 2.5 mg Documented by: [id number] Albuterol (Albuterol 0.083% Nebu Soln 3 Ml Vial) 2.5 mg NEB Q6R PRN PRN Reason: Shortness Of Breath Or Wheezing Stop: 03/16/21 00:59 Last Admin: 02/17/21 05:01 Dose: 2.5 mg Documented by: [id number] Admin: 02/15/21 13:04 Dose: 2.5 mg Documented by: [id number] Apixaban (Apixaban 2.5 Mg Tab) 10 mg PO BID INDU Stop: 02/28/21 09:01 Last Admin: 02/22/21 08:46 Dose: 10 mg Documented by: [id number] Admin: 02/21/21 21:04 Dose: 10 mg Documented by: [id number] Atorvastatin Calcium (Atorvastatin 20 Mg Tab) 20 mg PO DAILY INDU Stop: 03/17/21 08:59 Last Admin: 02/22/21 08:54 Dose: 20 mg Documented by: [id number] Admin: 02/21/21 08:25 Dose: 20 mg Documented by: [id number] Admin: 02/20/21 08:57 Dose: 20 mg Documented by: [id number] Admin: 02/19/21 08:52 Dose: 20 mg Documented by: [id number] Admin: 02/18/21 08:30 Dose: 20 mg Documented by: [id number] Admin: 02/17/21 09:11 Dose: 20 mg Documented by: [id number] Admin: 02/16/21 08:19 Dose: 20 mg Documented by: [id number] Admin: 02/15/21 08:21 Dose: 20 mg Documented by: [id number] Benzonatate (Benzonatate 100 Mg Capsule) 100 mg PO Q8H PRN PRN Reason: Cough Stop: 03/17/21 20:37 Last Admin: 02/21/21 21:12 Dose: 100 mg Documented by: [id number] Admin: 02/21/21 08:34 Dose: 100 mg Documented by: [id number] Admin: 02/20/21 20:16 Dose: 100 mg Documented by: [id number] Admin: 02/20/21 10:39 Dose: 100 mg Documented by: [id number] Admin: 02/19/21 21:37 Dose: 100 mg Documented by: [id number] Admin: 02/19/21 10:25 Dose: 100 mg Documented by: [id number] Admin: 02/18/21 21:53 Dose: 100 mg Documented by: [id number] Admin: 02/18/21 09:49 Dose: 100 mg Documented by: [id number] Admin: 02/17/21 12:25 Dose: 100 mg Documented by: [id number] Admin: 02/17/21 03:34 Dose: 100 mg Documented by: [id number] Admin: 02/16/21 11:54 Dose: 100 mg Documented by: [id number] Admin: 02/15/21 20:59 Dose: 100 mg Documented by: [id number] Cetirizine HCl (Cetirizine Hcl 10 Mg Tablet) 10 mg PO DAILY INDU Stop: 03/17/21 08:59 Last Admin: 02/22/21 08:55 Dose: 10 mg Documented by: [id number] Admin: 02/21/21 08:26 Dose: 10 mg Documented by: [id number] Admin: 02/20/21 08:57 Dose: 10 mg Documented by: [id number] Admin: 02/19/21 08:52 Dose: 10 mg Documented by: [id number] Admin: 02/18/21 08:29 Dose: 10 mg Documented by: [id number] Admin: 02/17/21 09:11 Dose: 10 mg Documented by: [id number] Admin: 02/16/21 08:17 Dose: 10 mg Documented by: [id number] Admin: 02/15/21 08:21 Dose: 10 mg Documented by: [id number] Cyanocobalamin (Cyanocobalamin 500 Mcg Tablet (Vitamin B-12)) 1,000 mcg PO QAM INDU Stop: 03/17/21 08:59 Last Admin: 02/22/21 08:55 Dose: 1,000 mcg Documented by: [id number] Admin: 02/21/21 08:26 Dose: 1,000 mcg Documented by: [id number] Admin: 02/20/21 08:55 Dose: 1,000 mcg Documented by: [id number] Admin: 02/19/21 08:52 Dose: 1,000 mcg Documented by: [id number] Admin: 02/18/21 08:30 Dose: 1,000 mcg Documented by: [id number] Admin: 02/17/21 09:11 Dose: 1,000 mcg Documented by: [id number] Admin: 02/16/21 08:18 Dose: 1,000 mcg Documented by: [id number] Admin: 02/15/21 08:21 Dose: 1,000 mcg Documented by: [id number] Dexamethasone Sodium Phosphate (DexamethasonePf 10 Mg/Ml Vial) 6 mg IV ONE ONE Stop: 02/14/21 16:16 Last Admin: 02/14/21 16:26 Dose: 6 mg Documented by: [id number] Diltiazem HCl (Diltiazem Hcl 120 Mg Capcr) 120 mg PO DAILY [facility] Stop: 03/17/21 08:59 Last Admin: 02/22/21 08:54 Dose: 120 mg Documented by: [id number] Admin: 02/21/21 08:27 Dose: 120 mg Documented by: [id number] Admin: 02/20/21 08:56 Dose: 120 mg Documented by: [id number] Admin: 02/19/21 08:52 Dose: 120 mg Documented by: [id number] Admin: 02/18/21 08:29 Dose: 120 mg Documented by: [id number] Admin: 02/17/21 09:11 Dose: 120 mg Documented by: [id number] Admin: 02/16/21 08:17 Dose: 120 mg Documented by: [id number] Admin: 02/15/21 08:21 Dose: 120 mg Documented by: [id number] Enoxaparin Sodium (Enoxaparin Inj 120 Mg/0.8 Ml Syr) 111 mg SQ Q12H INDU Stop: 03/17/21 00:14 Last Admin: 02/18/21 21:31 Dose: 111 mg Documented by: [id number] Admin: 02/18/21 10:07 Dose: 111 mg Documented by: [id number] Admin: 02/17/21 20:51 Dose: 111 mg Documented by: [id number] Admin: 02/17/21 09:15 Dose: 111 mg Documented by: [id number] Admin: 02/16/21 21:53 Dose: 111 mg Documented by: [id number] Admin: 02/16/21 10:42 Dose: 111 mg Documented by: [id number] Admin: 02/15/21 20:59 Dose: 111 mg Documented by: [id number] Admin: 02/15/21 12:25 Dose: 111 mg Documented by: [id number] Admin: 02/15/21 00:49 Dose: 111 mg Documented by: [id number] Escitalopram Oxalate (Escitalopram Oxalate 10 Mg Tab) 15 mg PO DAILY INDU Stop: 03/17/21 08:59 Last Admin: 02/22/21 08:54 Dose: 15 mg Documented by: [id number] Admin: 02/21/21 08:28 Dose: 15 mg Documented by: [id number] Admin: 02/20/21 08:58 Dose: 15 mg Documented by: [id number] Admin: 02/19/21 08:52 Dose: 15 mg Documented by: [id number] Admin: 02/18/21 08:30 Dose: 15 mg Documented by: [id number] Admin: 02/17/21 09:11 Dose: 15 mg Documented by: [id number] Admin: 02/16/21 08:18 Dose: 15 mg Documented by: [id number] Admin: 02/15/21 08:20 Dose: 15 mg Documented by: [id number] Sodium Chloride (Nss 1000ml) 1,000 mls @ 999 mls/hr IV .Q1H1M ONE Stop: 02/14/21 17:05 Last Infusion: 02/14/21 17:22 Dose: 0 mls/hr Documented by: [id number] Admin: 02/14/21 16:21 Dose: 999 mls/hr Documented by: [id number] Sodium Chloride (Nss 1000ml) 1,000 mls @ 100 mls/hr IV .Q10H INDU Stop: 03/16/21 23:44 Last Infusion: 02/15/21 13:23 Dose: 0 mls/hr Documented by: [id number] Infusion: 02/15/21 13:22 Dose: 0 mls/hr Documented by: [id number] Admin: 02/15/21 08:22 Dose: 100 mls/hr Documented by: [id number] Infusion: 02/15/21 08:22 Dose: 100 mls/hr Documented by: [id number] Admin: 02/15/21 00:01 Dose: 100 mls/hr Documented by: [id number] Dexamethasone 6 mg/ Syringe 1.5 mls @ 1 mls/min IV DAILY INDU Stop: 02/25/21 08:59 Last Admin: 02/22/21 08:51 Dose: 1 mls/min Documented by: [id number] Admin: 02/21/21 08:27 Dose: 1 mls/min Documented by: [id number] Admin: 02/20/21 09:02 Dose: 1 mls/min Documented by: [id number] Admin: 02/19/21 09:34 Dose: 1 mls/min Documented by: [id number] Admin: 02/18/21 08:23 Dose: 1 mls/min Documented by: [id number] Admin: 02/17/21 09:49 Dose: 1 mls/min Documented by: [id number] Admin: 02/16/21 08:21 Dose: 1 mls/min Documented by: [id number] Admin: 02/15/21 09:03 Dose: 1 mls/min Documented by: [id number] Remdesivir 200 mg/ Sodium (Chloride) 250 mls @ 125 mls/hr IV ONE ONE; Protocol Stop: 02/15/21 15:44 Last Infusion: 02/15/21 16:27 Dose: 0 mls/hr Documented by: [id number] Admin: 02/15/21 14:28 Dose: 125 mls/hr Documented by: [id number] Remdesivir 100 mg/ Sodium (Chloride) 250 mls @ 250 mls/hr IV Q24H INDU; Protocol Stop: 02/19/21 12:59 Last Infusion: 02/19/21 14:12 Dose: 0 mls/hr Documented by: [id number] Admin: 02/19/21 13:12 Dose: 250 mls/hr Documented by: [id number] Infusion: 02/18/21 13:21 Dose: 0 mls/hr Documented by: [id number] Admin: 02/18/21 12:00 Dose: 250 mls/hr Documented by: [id number] Infusion: 02/17/21 13:16 Dose: 0 mls/hr Documented by: [id number] Admin: 02/17/21 12:06 Dose: 250 mls/hr Documented by: [id number] Infusion: 02/16/21 13:20 Dose: 0 mls/hr Documented by: [id number] Admin: 02/16/21 12:07 Dose: 250 mls/hr Documented by: [id number] Aztreonam 2,000 mg/ Dextrose 110 mls @ 100 mls/hr IV Q8H INDU; Protocol Stop: 02/23/21 03:29 Last Infusion: 02/16/21 12:05 Dose: 0 mls/hr Documented by: [id number] Admin: 02/16/21 10:52 Dose: 100 mls/hr Documented by: [id number] Infusion: 02/16/21 05:48 Dose: 0 mls/hr Documented by: [id number] Admin: 02/16/21 04:26 Dose: 100 mls/hr Documented by: [id number] Azithromycin 500 mg/ Dextrose 255 mls @ 125 mls/hr IV QA INDU Stop: 02/23/21 08:59 Last Infusion: 02/16/21 10:41 Dose: 0 mls/hr Documented by: [id number] Admin: 02/16/21 08:35 Dose: 125 mls/hr Documented by: [id number] Levofloxacin/Dextrose (Levaquin/D5w) 750 mg in 150 mls @ 100 mls/hr IV Q24H INDU; Protocol Stop: 02/24/21 08:59 Last Infusion: 02/21/21 10:18 Dose: 0 mls/hr Documented by: [id number] Admin: 02/21/21 08:48 Dose: 100 mls/hr Documented by: [id number] Infusion: 02/20/21 10:39 Dose: 0 mls/hr Documented by: [id number] Admin: 02/20/21 09:03 Dose: 100 mls/hr Documented by: [id number] Infusion: 02/19/21 12:00 Dose: 0 mls/hr Documented by: [id number] Infusion: 02/19/21 10:25 Dose: 100 mls/hr Documented by: [id number] Infusion: 02/19/21 09:39 Dose: 0 mls/hr Documented by: [id number] Admin: 02/19/21 09:34 Dose: 100 mls/hr Documented by: [id number] Infusion: 02/18/21 10:07 Dose: 0 mls/hr Documented by: [id number] Admin: 02/18/21 08:24 Dose: 100 mls/hr Documented by: [id number] Infusion: 02/17/21 12:08 Dose: 0 mls/hr Documented by: [id number] Admin: 02/17/21 09:14 Dose: 100 mls/hr Documented by: [id number] Furosemide 20 mg/ Syringe 2 mls @ 4 mls/min IV 0815 ONE Stop: 02/17/21 08:16 Last Admin: 02/17/21 09:10 Dose: 4 mls/min Documented by: [id number] Furosemide 20 mg/ Syringe 2 mls @ 4 mls/min IV ONE ONE Stop: 02/18/21 08:16 Last Admin: 02/18/21 09:49 Dose: 4 mls/min Documented by: [id number] Ibuprofen (Ibuprofen 600 Mg Tab) 600 mg PO Q6H PRN PRN Reason: Fever Stop: 03/19/21 08:33 Last Admin: 02/17/21 12:25 Dose: 600 mg Documented by: [id number] Insulin Aspart (Insulin Aspart 100 Units/Ml 3 Ml Pen) 0 units SC ACHS INDU; Pro tocol Stop: 03/17/21 00:14 Last Admin: 02/21/21 08:42 Dose: 15 units Documented by: [id number] Cosigned by: [id number] Admin: 02/20/21 20:46 Dose: 9 units Documented by: [id number] Cosigned by: [id number] Admin: 02/20/21 17:40 Dose: 28 units Documented by: [id number] Cosigned by: [id number] Admin: 02/20/21 12:32 Dose: 11 units Documented by: [id number] Cosigned by: [id number] Admin: 02/20/21 09:11 Dose: 22 units Documented by: [id number] Cosigned by: [id number] Admin: 02/19/21 21:27 Dose: 8 units Documented by: [id number] Cosigned by: [id number] Admin: 02/19/21 18:04 Dose: 20 units Documented by: [id number] Cosigned by: [id number] Admin: 02/19/21 12:39 Dose: 23 units Documented by: [id number] Cosigned by: [id number] Admin: 02/19/21 09:04 Dose: 12 units Documented by: [id number] Cosigned by: [id number] Admin: 02/18/21 21:33 Dose: 6 units Documented by: [id number] Cosigned by: [id number] Admin: 02/18/21 18:08 Dose: 26 units Documented by: [id number] Cosigned by: [id number] Admin: 02/18/21 12:07 Dose: 17 units Documented by: [id number] Cosigned by: [id number] Admin: 02/18/21 08:30 Dose: 8 units Documented by: [id number] Cosigned by: [id number] Admin: 02/17/21 21:08 Dose: 10 units Documented by: [id number] Cosigned by: [id number] Admin: 02/17/21 17:26 Dose: 25 units Documented by: [id number] Cosigned by: [id number] Admin: 02/17/21 12:32 Dose: 14 units Documented by: [id number] Cosigned by: [id number] Admin: 02/17/21 09:31 Dose: 7 units Documented by: [id number] Cosigned by: [id number] Admin: 02/16/21 22:11 Dose: Not Given Documented by: [id number] Cosigned by: [id number] Admin: 02/16/21 17:18 Dose: 8 units Documented by: [id number] Cosigned by: [id number] Admin: 02/16/21 12:15 Dose: 2 units Documented by: [id number] Cosigned by: [id number] Admin: 02/16/21 08:30 Dose: Not Given Documented by: [id number] Cosigned by: [id number] Admin: 02/15/21 20:42 Dose: 7 units Documented by: [id number] Cosigned by: [id number] Admin: 02/15/21 16:54 Dose: 24 units Documented by: [id number] Cosigned by: [id number] Admin: 02/15/21 12:34 Dose: 24 units Documented by: [id number] Cosigned by: [id number] Admin: 02/15/21 08:37 Dose: 9 units Documented by: [id number] Cosigned by: [id number] Admin: 02/15/21 00:45 Dose: 8 units Documented by: [id number] Cosigned by: [id number] Insulin Aspart (Insulin Aspart 100 Units/Ml 3 Ml Pen) 0 units SC ONE ONE; Protocol Stop: 02/15/21 04:01 Last Admin: 02/15/21 04:41 Dose: 7 units Documented by: [id number] Cosigned by: [id number] Insulin Aspart (Insulin Aspart 100 Units/Ml 3 Ml Pen) 0 units SC 0400 INDU; Protocol Stop: 02/18/21 04:01 Last Admin: 02/18/21 04:37 Dose: Not Given Documented by: [id number] Cosigned by: [id number] Insulin Aspart (Insulin Aspart 100 Units/Ml 3 Ml Pen) 0 units SC AC INDU; Protocol Stop: 03/17/21 00:14 Last Admin: 02/22/21 13:09 Dose: 24 units Documented by: [id number] Cosigned by: [id number] Admin: 02/22/21 09:33 Dose: 14 units Documented by: [id number] Cosigned by: [id number] Admin: 02/21/21 17:40 Dose: 29 units Documented by: [id number] Cosigned by: [id number] Admin: 02/21/21 12:48 Dose: 13 units Documented by: [id number] Cosigned by: [id number] Insulin Aspart (Insulin Aspart 100 Units/Ml 3 Ml Pen) 0 units SC HS [facility]; Protocol Stop: 03/23/21 20:59 Last Admin: 02/21/21 21:10 Dose: 3 units Documented by: [id number] Cosigned by: [id number] Insulin Glargine (Insulin Glargine Solostar 100 Units/Ml 3 Ml Pen) 65 units SQ NOW STA; Protocol Stop: 02/15/21 00:06 Last Admin: 02/15/21 00:45 Dose: 65 units Documented by: [id number] Cosigned by: [id number] Insulin Glargine (Insulin Glargine Solostar 100 Units/Ml 3 Ml Pen) 25 units SC QAM INDU Stop: 03/17/21 08:59 Last Admin: 02/15/21 08:38 Dose: 25 units Documented by: [id number] Cosigned by: [id number] Insulin Glargine (Insulin Glargine Solostar 100 Units/Ml 3 Ml Pen) 0 units SC HS INDU; Protocol Stop: 03/17/21 20:59 Last Admin: 02/17/21 21:08 Dose: 30 units Documented by: [id number] Cosigned by: [id number] Admin: 02/16/21 22:12 Dose: 30 units Documented by: [id number] Cosigned by: [id number] Admin: 02/15/21 20:42 Dose: 65 units Documented by: [id number] Cosigned by: [id number] Insulin Glargine (Insulin Glargine Solostar 100 Units/Ml 3 Ml Pen) 15 units SC DAILY IN[facility]; Protocol Stop: 03/20/21 08:59 Last Admin: 02/22/21 09:35 Dose: 15 units Documented by: [id number] Cosigned by: [id number] Admin: 02/21/21 08:40 Dose: 15 units Documented by: [id number] Cosigned by: [id number] Admin: 02/20/21 09:06 Dose: 15 units Documented by: [id number] Cosigned by: [id number] Admin: 02/19/21 09:04 Dose: 15 units Documented by: [id number] Cosigned by: [id number] Admin: 02/18/21 08:58 Dose: 15 units Documented by: [id number] Cosigned by: [id number] Insulin Glargine (Insulin Glargine Solostar 100 Units/Ml 3 Ml Pen) 30 units SC HS IN[facility]; Protocol Stop: 03/20/21 20:59 Last Admin: 02/19/21 21:29 Dose: 30 units Documented by: [id number] Cosigned by: [id number] Admin: 02/18/21 21:33 Dose: 30 units Documented by: [id number] Cosigned by: [id number] Insulin Glargine (Insulin Glargine Solostar 100 Units/Ml 3 Ml Pen) 20 units SC HS INDU; Protocol Stop: 03/22/21 20:59 Last Admin: 02/20/21 20:46 Dose: 20 units Documented by: [id number] Cosigned by: [id number] Insulin Human NPH (Insulin Human Nph) 40 units SC DAILY INDU Stop: 03/17/21 08:59 Last Admin: 02/16/21 08:53 Dose: 40 units Documented by: [id number] Cosigned by: [id number] Admin: 02/15/21 08:38 Dose: 40 units Documented by: [id number] Cosigned by: [id number] Insulin Human NPH (Insulin Human Nph) 35 units SC DAILY [facility] Stop: 03/19/21 08:59 Last Admin: 02/20/21 09:07 Dose: 35 units Documented by: [id number] Cosigned by: [id number] Admin: 02/19/21 09:04 Dose: 35 units Documented by: [id number] Cosigned by: [id number] Admin: 02/18/21 08:59 Dose: 35 units Documented by: [id number] Cosigned by: [id number] Admin: 02/17/21 09:55 Dose: 35 units Documented by: [id number] Cosigned by: [id number] Insulin Human NPH (Insulin Human Nph) 45 units SC DAILY [facility] Stop: 03/23/21 08:59 Last Admin: 02/22/21 09:35 Dose: 45 units Documented by: [id number] Cosigned by: [id number] Admin: 02/21/21 08:44 Dose: 45 units Documented by: [id number] Cosigned by: [id number] Ioversol (Optiray 320 125ml) 117 ml IV ONCE ONE Stop: 02/16/21 02:44 Last Admin: 02/16/21 02:48 Dose: 117 ml Documented by: [id number] Losartan Potassium (Losartan Potassium 50 Mg Tab) 50 mg PO QAM [facility] Stop: 03/21/21 08:59 Last Admin: 02/22/21 08:56 Dose: 50 mg Documented by: [id number] Admin: 02/21/21 08:31 Dose: 50 mg Documented by: [id number] Admin: 02/20/21 08:57 Dose: 50 mg Documented by: [id number] Admin: 02/19/21 08:52 Dose: 50 mg Documented by: [id number] Miscellaneous (Carbohydrates For Hypoglycemia ) 15 - 30 gm PO UD PRN PRN Reason: Hypoglycemia Protocol Stop: 03/16/21 23:24 Last Admin: 02/17/21 03:52 Dose: 14 gm Documented by: [id number] Admin: 02/17/21 03:37 Dose: 15 gm Documented by: [id number] Admin: 02/17/21 03:23 Dose: 15 gm Documented by: [id number] Admin: 02/16/21 08:13 Dose: 30 gm Documented by: [id number] Pantoprazole Sodium (Pantoprazole 40 Mg Tab) 40 mg PO DAILY [facility]; Protocol Stop: 03/17/21 08:59 Last Admin: 02/22/21 08:56 Dose: 40 mg Documented by: [id number] Admin: 02/21/21 08:32 Dose: 40 mg Documented by: [id number] Admin: 02/20/21 08:56 Dose: 40 mg Documented by: [id number] Admin: 02/19/21 08:52 Dose: 40 mg Documented by: [id number] Admin: 02/18/21 08:29 Dose: 40 mg Documented by: [id number] Admin: 02/17/21 09:11 Dose: 40 mg Documented by: [id number] Admin: 02/16/21 08:19 Dose: 40 mg Documented by: [id number] Admin: 02/15/21 08:20 Dose: 40 mg Documented by: [id number] Potassium Chloride (Potassium Chloride Crtab 20 Meq Tabcr) 20 meq PO [id number] [facility] Stop: 03/19/21 10:29 Last Admin: 02/22/21 08:56 Dose: 20 meq Documented by: [id number] Admin: 02/21/21 17:41 Dose: 20 meq Documented by: [id number] Admin: 02/21/21 08:32 Dose: 20 meq Documented by: [id number] Admin: 02/20/21 17:47 Dose: 20 meq Documented by: [id number] Admin: 02/20/21 09:02 Dose: 20 meq Documented by: [id number] Admin: 02/19/21 17:49 Dose: 20 meq Documented by: [id number] Admin: 02/19/21 08:51 Dose: 20 meq Documented by: [id number] Admin: 02/18/21 17:56 Dose: 20 meq Documented by: [id number] Admin: 02/18/21 08:29 Dose: 20 meq Documented by: [id number] Admin: 02/17/21 17:30 Dose: 20 meq Documented by: [id number] Admin: 02/17/21 12:06 Dose: 20 meq Documented by: [id number] Rivaroxaban (Rivaroxaban 15 Mg Tab) 15 mg PO BIDM [facility] Stop: 03/12/21 20:59 Last Admin: 02/21/21 17:44 Dose: Not Given Documented by: [id number] Admin: 02/21/21 08:24 Dose: 15 mg Documented by: [id number] Admin: 02/20/21 17:43 Dose: 15 mg Documented by: [id number] Admin: 02/20/21 08:55 Dose: 15 mg Documented by: [id number] Admin: 02/19/21 21:29 Dose: 15 mg Documented by: [id number] Sodium Chloride (Sodium Chloride 0.9% 10ml Flush) 30 ml IV DAILY@1300 [facility] Stop: 02/19/21 13:01 Last Admin: 02/19/21 14:13 Dose: 30 ml Documented by: [id number] Admin: 02/18/21 13:27 Dose: 30 ml Documented by: [id number] Admin: 02/17/21 12:07 Dose: 30 ml Documented by: [id number] Admin: 02/16/21 13:20 Dose: 30 ml Documented by: [id number] Admin: 02/15/21 14:28 Dose: 30 ml Documented by: [id number] Topiramate (Topiramate 50 Mg Tab) 50 mg PO BID INDU Stop: 03/17/21 00:00 Last Admin: 02/22/21 08:45 Dose: 50 mg Documented by: [id number] Admin: 02/21/21 21:04 Dose: 50 mg Documented by: [id number] Admin: 02/21/21 08:32 Dose: 50 mg Documented by: [id number] Admin: 02/20/21 20:16 Dose: 50 mg Documented by: [id number] Admin: 02/20/21 08:55 Dose: 50 mg Documented by: [id number] Admin: 02/19/21 21:29 Dose: 50 mg Documented by: [id number] Admin: 02/19/21 08:51 Dose: 50 mg Documented by: [id number] Admin: 02/18/21 21:32 Dose: 50 mg Documented by: [id number] Admin: 02/18/21 08:29 Dose: 50 mg Documented by: [id number] Admin: 02/17/21 20:51 Dose: 50 mg Documented by: [id number] Admin: 02/17/21 09:11 Dose: 50 mg Documented by: [id number] Admin: 02/16/21 21:55 Dose: 50 mg Documented by: [id number] Admin: 02/16/21 08:19 Dose: 50 mg Documented by: [id number] Admin: 02/15/21 20:59 Dose: 50 mg Documented by: [id number] Admin: 02/15/21 08:20 Dose: 50 mg Documented by: [id number] Admin: 02/15/21 00:49 Dose: 50 mg Documented by: [id number] Medical Decision Making Differential Diagnosis Reactive airway disease, pneumonia, pneumothorax, COPD, CHF, infections, cardiac ischemia, pulmonary embolism, musculoskeletal, gastrointestinal, as well as other pathologies. Home Medications Current Medication List: was personally reviewed by me Laboratory Data Attestation: I reviewed the patient's lab results. Result diagrams: 02/21/21 07:02 02/22/21 07:42 Lab Results 02/14/21 02/14/21 02/14/21 Range/Units 15:16 15:16 15:16 WBC 5.18 (4.8-10.8) K/uL RBC 5.03 (4.2-5.4) M/uL Hgb 12.6 (12.0-16.0) g/dL Hct 39.3 (37-47) % MCV 78.1 L (80-100) fL MCH 25.0 (25-34) pg MCHC 32.1 (32-36) g/dL RDW Std Deviation 48.9 H (36.4-46.3) fL RDW Coeff of Yoandy 17.2 H (11.5-14.5) % Plt Count 214 (130-400) K/uL MPV 10.0 (7.4-10.4) fL Immature Gran % (Auto) 0.6 % Neut % (Auto) 71.4 % Lymph % (Auto) 23.6 % [place] % (Auto) 4.2 % Eos % (Auto) 0.0 % Baso % (Auto) 0.2 % Neut # (Auto) 3.70 (1.4-6.5) K/uL Lymph # (Auto) 1.22 (1.2-3.4) K/uL [place] # (Auto) 0.22 (0.11-0.59) K/uL Eos # (Auto) 0.00 (0-0.5) K/uL Baso # (Auto) 0.01 (0-0.2) K/uL Immature Gran # (Auto) 0.03 H (0.00-0.02) K/uL Polychromasia 1+ Poikilocytosis Present D-Dimer (0-500) ug/L FEU Sodium 135 L (136-145) mmol/L Potassium 3.4 L (3.5-5.1) mmol/L Chloride 104 (98-107) mmol/L Carbon Dioxide 24 (21-32) mmol/L Anion Gap 7.0 (3-11) BUN 34 H (7-18) mg/dl Creatinine 2.04 H (0.6-1.2) mg/dl Est Cr Clr Drug Dosing 35.2 ml/min Est GFR ( Amer) 29.3 ml/min Est GFR (Non-Af Amer) 25.3 ml/min BUN/Creatinine Ratio 16.4 (10-20) Glucose 143 H (70-99) mg/dl Calcium 8.3 L (8.5-10.1) mg/dl Total Bilirubin 0.3 (0.2-1) mg/dl AST 52 H (15-37) U/L ALT 37 (12-78) U/L Alkaline Phosphatase 96 (45-117) U/L Troponin I < 0.015 (0-0.045) ng/ml C-Reactive Protein 18.30 H (0-0.29) mg/dl Total Protein 8.7 H (6.4-8.2) gm/dl Albumin 3.6 (3.4-5.0) gm/dl Globulin 5.1 H (2.5-4.0) gm/dl Albumin/Globulin Ratio 0.7 L (0.9-2) Procalcitonin 0.17 (0-0.5) ng/ml COVID-19 Eval Order SARS-CoV-2 (PCR) (Negative) 02/14/21 02/14/21 02/14/21 Range/Units 15:16 15:17 15:17 WBC (4.8-10.8) K/uL RBC (4.2-5.4) M/uL Hgb (12.0-16.0) g/dL Hct (37-47) % MCV (80-100) fL MCH (25-34) pg MCHC (32-36) g/dL RDW Std Deviation (36.4-46.3) fL RDW Coeff of Yoandy (11.5-14.5) % Plt Count (130-400) K/uL MPV (7.4-10.4) fL Immature Gran % (Auto) % Neut % (Auto) % Lymph % (Auto) % [place] % (Auto) % Eos % (Auto) % Baso % (Auto) % Neut # (Auto) (1.4-6.5) K/uL Lymph # (Auto) (1.2-3.4) K/uL [place] # (Auto) (0.11-0.59) K/uL Eos # (Auto) (0-0.5) K/uL Baso # (Auto) (0-0.2) K/uL Immature Gran # (Auto) (0.00-0.02) K/uL Polychromasia Poikilocytosis D-Dimer 660 H* (0-500) ug/L FEU Sodium (136-145) mmol/L Potassium (3.5-5.1) mmol/L Chloride (98-107) mmol/L Carbon Dioxide (21-32) mmol/L Anion Gap (3-11) BUN (7-18) mg/dl Creatinine (0.6-1.2) mg/dl Est Cr Clr Drug Dosing ml/min Est GFR ( Amer) ml/min Est GFR (Non-Af Amer) ml/min BUN/Creatinine Ratio (10-20) Glucose (70-99) mg/dl Calcium (8.5-10.1) mg/dl Total Bilirubin (0.2-1) mg/dl AST (15-37) U/L ALT (12-78) U/L Alkaline Phosphatase (45-117) U/L Troponin I (0-0.045) ng/ml C-Reactive Protein (0-0.29) mg/dl Total Protein (6.4-8.2) gm/dl Albumin (3.4-5.0) gm/dl Globulin (2.5-4.0) gm/dl Albumin/Globulin Ratio (0.9-2) Procalcitonin (0-0.5) ng/ml COVID-19 Eval Order Covid19 at [facility] SARS-CoV-2 (PCR) POSITIVE A* (Negative) Imaging Data Attestation: I personally reviewed and interpreted this imaging study as follows: Radiologist's Impression: Chest X-Ray 02/14/21 15:37 XR chest 1V portable CLINICAL HISTORY: cough, sob, covid sxs COMPARISON STUDY: December 08, 2018 FINDINGS: No pneumothorax. Mild blunting of the left costophrenic angle which could represent trace left pleural effusion. Multiple mixed reticular and airspace opacities are seen within bilateral lower lungs and more prominent on the left. Evaluation is slightly limited due to overlying pannus and patient body habitus. Cardiomediastinal silhouette is within upper limits of normal and partially obscured by surrounding opacities. Vasculature is indistinct.. Degenerative changes of the spine. IMPRESSION: 1. Bilateral mixed reticular and airspace opacities, more prominent within left mid to lower lung and possible associated with minimal left pleural effusion. 2. Mildly enlarged cardiac silhouette. 3. Limited exam due to patient body habitus and overlying pannus ACT 112: Negative or not required by law. The above report was generated using voice recognition software. It may contain grammatical, syntax or spelling errors. Electronically signed by: Lottie Roche DO 02/14/2021 4:31 PM ECG Data Attestation: I personally reviewed and interpreted this ECG as follows: Indication: + SOB/dyspnea Rate (beats per minute): 106 Rhythm: + sinus tachycardia ECG Intervals/blocks: + Normal QRS ECG ST segments: + Normal ST segments Change: no significant change MDM Narrative Continuous wellness trainer: Order was placed for continuous wellness trainer. Patient was placed on the wellness trainer. Patient was noted to be in sinus tachycardia at an initial rate of 109 bpm. The patient is a 65-year-old female who presents today complaining of shortness of breath and symptoms of COVID-19. Patient was COVID-19 positive. She was also found to have an acute kidney injury. Patient was hypoxic at 85% on room air. She was placed on oxygen, IV fluids and Decadron were given and case was discussed with the [facility] hospitalist, who agreed to evaluate the patient for further care. Impression & Plan COVID-19, Acute kidney injury, Hypoxia Discharge Plan Visit Data Chief Complaint: Cough Stated Complaint: COUGH,FEVER,CHILLS ED Provider: John Paul Griffin ED Midlevel Provider: Dana Jo Discharge Problem: COVID-19, Acute kidney injury, Hypoxia Patient Disposition: Admitted As Inpatient Discharge Instructions Interventions: ED Discharge Assessment Last Done: 02/14/21 22:49
[2021-02-14] MEDS ORDERED: GLUCOSE 10 TABS/TUBE PO PRN (23:25)
[2021-02-14] MEDS ORDERED: GLUCOSE 40% GEL 15 GM TUBE PO PRN (23:25)
[2021-02-14] MEDS ORDERED: ONDANSETRON INJ 2 MG/ML 2 ML VIAL IV PRN (23:25)
[2021-02-14] MEDS ORDERED: DEXTROSE 50% 50 ML SYRINGE IV PRN (23:25)
[2021-02-14] MEDS ORDERED: GLUCAGON FOR INJ 1 MG VIAL SQ PRN (23:25)
[2021-02-14] MEDS ORDERED: ENOXAPARIN 1 MG/KG SC SCH (23:25)
[2021-02-14] MEDS ORDERED: PHARMACY GLYCEMIC MGMT CONSULT PRN (23:25)
[2021-02-15] MEDS: SODIUM CHLORIDE 0.9% 1000ML 1,000 ML IV SCH ×2 (00:01→08:22)
[2021-02-15] MEDS ORDERED: INSULIN GLARGINE SOLOSTAR 100 UNITS/ML 3 ML PEN SQ STA (00:05)
[2021-02-15] MEDS: ALBUTEROL 0.5% NEB SOLN 2.5 MG/0.5 ML VIAL NEB SCH ×3 (00:35→07:47)
[2021-02-15] MEDS: INSULIN ASPART 100 UNITS/ML 3 ML PEN SC SCH ×5 (00:45→20:42)
[2021-02-15] MEDS: TOPIRAMATE 50 MG TAB PO SCH ×3 (00:49→20:59)
[2021-02-15] MEDS: ENOXAPARIN INJ 120 MG/0.8 ML SYR SQ SCH ×3 (00:49→20:59)
[2021-02-15] MEDS ORDERED: INSULIN ASPART 100 UNITS/ML 3 ML PEN SC ONE (04:00)
[2021-02-15 07:52] LABS: Estimated Average Glucose 192 mg/dl; Hemoglobin A1C 8.3 % (4.5-5.6)
[2021-02-15 08:06] LABS: Albumin Globulin Ratio 0.6 (0.9-2); BUN Creatinine Ratio 22.8 (10-20); Bilirubin,Total 0.2 mg/dl (0.2-1); Calcium 8.2 mg/dl (8.5-10.1); Creatinine Clr Calc Pharmacy 56.7 ml/min; Est GFR (Non-African American) 44.9 ml/min; Globulin 4.8 gm/dl (2.5-4.0); Magnesium 2.3 mg/dl (1.8-2.4); Potassium 3.8 mmol/L (3.5-5.1); Total Protein 7.8 gm/dl (6.4-8.2)
[2021-02-15] MEDS: ESCITALOPRAM OXALATE 10 MG TAB PO SCH (08:20)
[2021-02-15] MEDS: PANTOprazole 40 MG TAB PO SCH (08:20)
[2021-02-15] MEDS: CETIRIZINE HCL 10 MG TABLET PO SCH (08:21)
[2021-02-15] MEDS: ATORVASTATIN 20 MG TAB PO SCH (08:21)
[2021-02-15] MEDS: dilTIAZem HCL 120 MG CAPCR PO SCH (08:21)
[2021-02-15] MEDS: CYANOCOBALAMIN 500 MCG TABLET (VITAMIN B-12) PO SCH (08:21)
[2021-02-15] MEDS: INSULIN HUMAN NPH SC SCH (08:38)
[2021-02-15] MEDS ORDERED: ESCITALOPRAM OXALATE 10 MG TAB PO SCH (09:00)
[2021-02-15] MEDS ORDERED: INSULIN GLARGINE SOLOSTAR 100 UNITS/ML 3 ML PEN SQ SCH (09:00)
[2021-02-15] MEDS ORDERED: INSULIN GLARGINE SOLOSTAR 100 UNITS/ML 3 ML PEN SC SCH ×2 (09:00→21:00)
[2021-02-15] MEDS: dexAMETHasone 6 MG in SYRINGE 0 ML IV SCH (09:03)
[2021-02-15] MEDS ORDERED: ALBUTEROL 0.5% NEB SOLN 2.5 MG/0.5 ML VIAL NEB PRN (09:55)
--- NOTE | 2021-02-15 11:12 | Pharmacy Report ---
Pharmacy Glycemic Short Note 2 - Date of Service February 15, 2021 - Glycemic Short BSG Results (Last 24 hours): 02/14/21 02/14/21 02/15/21 15:16 23:49 04:37 Glucose 143 H POC Glucose 215 H 206 H 02/15/21 02/15/21 07:04 07:42 Glucose 183 H POC Glucose 174 H OUTPATIENT ANTIDIABETIC REGIMEN: * Lantus 45 units qAM + Lantus 65 units qPM * Novolog /40 + SSI * HbA1C = 8.3% ASSESSMENT: * Ms Vale is a 65 y/o F with a PMH of T2DM controlled with insulin who presents with COVID pneumonia. * BSG yesterday was 143 mg/dL. She received dexamethasone 6 mg x 1 then BSG was 215 mg/dL. * Patient was given home dose of 65 units. BSG overnight was 206 mg/dL. Patient received 15 units of Novolog overnight. * Fasting today was 174 mg/dL. * Give Lantus 25 units x 1 (for 15 units overnight plus 10 extra units to decrease fasting to around 150 mg/dL). Continue Lantus 65 units at bedtime. Have lower dose available in case BSGs trend down significantly. * NPH 40 units (0.4 units/kg) for steroid induced hyperglycemia. * Novolog scale based upon basal rate of ~ 90 units/day. PLAN FOR INPATIENT GLYCEMIC CONTROL: * Basal insulin * Lantus 25 units SQ qAM + 65 units qPM (50 units if BSG < 130 mg/dL) * Bolus insulin * NovoLog per scale ACHS or Q6hrs while NPO * Goal Range: Low 110 mg/dL - High 140 mg/dL * Correction Factor: 10 mg/dL/unit * Nutritional / Prandial insulin per carb ratio of 1 unit per 3 grams CHO consumed PLAN FOR DISCHARGE: * HbA1C is slightly elevated above goal range for patient. Goal range is <8% while currently HbA1C is 8.3% * Recommend checking BSG at least once per day at varying times to establish blood sugar trends. * Then work with provider to tighten insulin. * May benefit from counseling regarding lifestyle modifications.
--- NOTE | 2021-02-15 11:26 | Electrocardiogram Report ---
Test Reason : Blood Pressure : / mmHG Vent. Rate : 106 BPM Atrial Rate : 106 BPM P-R Int : 146 ms QRS Dur : 092 ms QT Int : 352 ms P-R-T Axes : 049 018 059 degrees QTc Int : 467 ms Sinus tachycardia Otherwise normal ECG When compared with ECG of 13-SEP-2014 22:26, Nonspecific T wave abnormality, improved in Lateral leads Confirmed by Ervin Shannon ([id number]) on 02/15/2021 11:25:59 AM Referred By: Janet Mcdonald Confirmed By:Ervin Shannon
[2021-02-15] MEDS: ALBUTEROL 0.083% NEBU SOLN 3 ML VIAL NEB PRN (13:04)
--- NOTE | 2021-02-15 13:23 | Hospitalist Progress Note ---
Date of Service February 15, 2021 Assessment & Plan (1) Pneumonia due to COVID-19 virus: Plan: - Associated mild acute hypoxic respiratory failure responding to supplemental O2 at this time; Approximately day 8 of symptoms - CXR with bilateral mixed reticular and airspace opacities most prominent in L mid to lower lung and minimal pleural effusion - Renal function improved and will obtain CTA given mild elevated D-Dimer -- Therapeutic Lovenox INDU currently - pending CTA can downgrade to - Procalcitonin negative and will hold on Abx at this time; CRP elevated at 18 - Remdesivir 200 mg IV x 1 dose then 100 mg dosing starting tomorrow -- Monitor CRP and CMP - Incentive spirometer;flutter valve - Stop further fluids and COVID patients tend to develop a level of fluid overload - Continue Dexamethasone 6 mg IV - continue for 10 days (2) Paroxysmal SVT (supraventricular tachycardia): Plan: - Remains sinus rhythm on monitor; monitor for bradycardia in setting of Remdesivir - Continue Diltiazem 120 mg daily (3) KELLY (acute kidney injury): Plan: - IMPROVED - likely in setting of poor oral intake and medications - Hold Chlorthalidone and Losartan; BMP in AM - Was gently hydrated on admission - will hold fluids to prevent fluid overload (4) Diabetes mellitus, type 2: Plan: - A1c 8.3 - Will have to closely monitor in setting of steroids; currently appropriate BSGs - Glycemic management following - appreciate input -- Could consider NPH with Decadron dosing if hyperglycemia occurs (5) Hypertension: Plan: - STABLE - Hold Chlorthalidone 25 mg daily and Losartan 100 mg daily and monitor renal function - Labs in AM - will re-introduce pending lab and patient assessment (6) Acid reflux disease: Plan: - Continue Protonix 40 mg daily (7) Hypercholesterolemia: Plan: - Continue atorvastatin 20 mg daily (8) Severe obstructive sleep apnea: Plan: - Normally sleeps in recliner at home; cannot tolerate CPAP at home -- Can use here if she wishes Plan: Continued hospitalization for IV medication and O2 wean Admission and Anticipated Discharge Date Admission Date: February 14, 2021 Subjective Pt reports feeling a bit better today. Still requiring supplemental O2. She is about 7-8 days into symptom onset. She reports getting a bit of an appetite today and would like to advance her diet. She continues to make good urine and keeping up with her hydration. She verbalizes no complaints at this time Review of Systems Review of Systems: REVIEW OF SYSTEMS General/Constitutional: + fatigue; Denies fever/chills ENT: + nasal congestion; Denies sore throat, trouble swallowing Cardiovascular: Denies chest pain, palpitations, edema Respiratory: + productive cough, +SOB mostly exertional; Denies orthopnea GI: Denies nausea, vomiting, abdominal pain, constipation, diarrhea, melena/hematochezia : Denies dysuria Musculoskeletal: Denies joint/muscle aches Neurologic: Denies dizziness/lightheadedness Skin: Denies rash Physical Exam Physical Exam: PHYSICAL EXAM General Appearance: Ill appearing but non-toxic in NAD who is A&O x 3 HEENT: Head is normocephalic/atraumatic; Hearing grossly intact; Mucous membranes moist Neck: Supple; Trachea midline; Neg JVD Heart: RRR with no M/G/R Lungs: Diminished breath sounds in bases, coarse and coughs with all deep breaths; Respirations unlabored; Neg accessory muscle use Abdomen: Soft, non-tender, non-distended; Positive BS x 4 quadrants Extremities: Capillary refill < 2 seconds; Neg cyanosis or edema Neurological: Speech clear; Gross motor/sensory function intact; Neg focal neurologic deficits Psychiatric: Appropriate mood/affect Skin: Normal Color; Warm/Dry Results & Data Results & Data ([facility]) Vital Signs (Past 12 Hours) Vital Signs Temp Pulse Pulse Resp BP Pulse Ox 02/15/21 13:04 90 20 92 02/15/21 11:39 37.4 C 88 18 114/71 92 02/15/21 10:38 80 02/15/21 07:51 74 18 95 02/15/21 07:39 36.8 C 82 20 109/68 94 02/15/21 02:53 36.7 C 82 18 111/69 96 PG Care Time/CCT Total # of Minutes Spent Total Time Spent with Patient: Total time spent is greater than 50% in coordination of care (as documented) at patient's floor/unit and/or counseling patient: Coding Level of Care Code 94227 Subseq Hosp Care Lvl 3 Diagnoses Pneumonia due to COVID-19 virus U07.1; J12.82 Paroxysmal SVT (supraventricular tachycardia) I47.1 Acid reflux disease K21.9 Hypercholesterolemia E78.00 Severe obstructive sleep apnea G47.33 Hypertension I10 Diabetes mellitus, type 2 E11.9 KELLY (acute kidney injury) N17.9
[2021-02-15] MEDS ORDERED: REMDESIVIR 200 MG in SODIUM CHLORIDE 0.9% 210 ML IV ONE (13:45)
[2021-02-15] MEDS: SODIUM CHLORIDE 0.9% 10ML FLUSH IV SCH (14:28)
[2021-02-15] MEDS: ACETAMINOPHEN 325 MG TAB PO PRN (15:36)
[2021-02-15] MEDS: INSULIN GLARGINE SOLOSTAR 100 UNITS/ML 3 ML PEN SC SCH (20:42)
[2021-02-15] MEDS: BENZONATATE 100 MG CAPSULE PO PRN (20:59)
[2021-02-16] MEDS: ACETAMINOPHEN 325 MG TAB PO PRN ×2 (00:50→05:54)
[2021-02-16] MEDS ORDERED: OPTIRAY 320 125ml IV ONE (02:43)
--- NOTE | 2021-02-16 03:11 | Communication Note ---
Date of Service: February 16, 2021 Subjective: Nursing notified me that the patient was tachycardic and febrile otherwise doing well. Objective: HR: 110 T: 39.5 A/P: 65 yo F/ with obesity and COVID-19 infection on 2L w/ new onset of tachycardia and febrile to 39.5 C concern for secondary bacterial infection CT w/o PE motion degraded; otherwise consistent with COVID pna - given Tylenol for fever - ordered Azithromycin and Aztreonam - blood and urine cultures ordered - MRSA swab ordered - consulted Pulm. for consideration of Tocilizumab
[2021-02-16] MEDS: AZTREONAM 2,000 MG in DEXTROSE 5% 100 ML IV SCH ×2 (04:26→10:52)
[2021-02-16 06:12] LABS: Hematocrit (blood only) 37.2 % (37-47); Hemoglobin 11.7 g/dL (12.0-16.0); Mean Corpuscular Hemoglobin 24.7 pg (25-34); Mean Corpuscular Hgb Conc 31.5 g/dL (32-36); Mean Corpuscular Volume 78.5 fL (80-100); Mean Platelet Volume 9.6 fL (7.4-10.4); Platelet Count 263 K/uL (130-400); RDW Coefficient of Variation 16.5 % (11.5-14.5); RDW Standard Deviation 47.7 fL (36.4-46.3); Red Blood Count 4.74 M/uL (4.2-5.4); White Blood Count 5.34 K/uL (4.8-10.8)
[2021-02-16 06:15] LABS: BUN Creatinine Ratio 19.8 (10-20); Calcium 8.3 mg/dl (8.5-10.1); Creatinine Clr Calc Pharmacy 52.5 ml/min; Est GFR (African American) 47.5 ml/min; Est GFR (Non-African American) 40.9 ml/min; Potassium 3.4 mmol/L (3.5-5.1)
[2021-02-16 06:18] LABS: Albumin Globulin Ratio 0.6 (0.9-2); Bilirubin,Total 0.3 mg/dl (0.2-1); C Reactive Protein 10.4 mg/dl (0-0.29); Globulin 4.8 gm/dl (2.5-4.0); Total Protein 7.8 gm/dl (6.4-8.2)
--- NOTE | 2021-02-16 07:51 | CT Scan Report ---
CT angio chest PE protocol CT DOSE: 794.88 mGy.cm HISTORY: 65 years-old Female with R/O PE; Has COVID. Acute shortness of breath. COVID Positive. TECHNIQUE: Multiple CTA images of the chest were obtained after the intravenous administration of Opt iray. Coronal and sagittal MIPS were obtained from the axial data set and were submitted for review. All measurements were obtained according to NASCET criteria. A dose lowering technique was utilized adhering to the principles of ALARA. COMPARISON: Chest radiograph 02/14/2021, CTA chest 08/11/2014 FINDINGS: CTA: The heart is mildly enlarged. No pericardial effusion. Mild coronary artery calcifications. No thorac ic aortic aneurysm. Mild ectasia of the thoracic aorta measures up to 3.9 cm. Four-vessel morphology of the thoracic aortic arch. Mild descending thoracic tortuosity. The main pulmonary artery is dilate d measuring up to 3.7 cm. Suboptimal evaluation of the pulmonary arterial tree secondary to contrast bolus timing and respiratory motion artifact. A segmental pulmonary embolus is noted within the right upper lobe on image [address] CHEST: Unremarkable thyroid. Mildly enlarged 1.2 cm right hilar lymph node on image 166. Additionally, there are a few prominent mediastinal and left hilar lymph nodes which are likely reactive. Trace pleural effusions. No pneumothorax. Patchy multisegmental multilobar bilateral distribution of intermixed keegan undglass and consolidative opacities. Respiratory motion artifact limits evaluation of the lung paren chyma. The central airways appear patent. The liver appears enlarged with findings suggestive of hepatic steatosis. Unremarkable soft tissues. There is no acute fracture. Degenerative changes of the shoulders and spine. IMPRESSION: 1. Nonocclusive pulmonary embolus involves a segmental branch of the right upper lobe. This finding w as called/faxed to the nursing unit at time of dictation. 2. Bilateral multilobar intermixed groundglass and consolidative opacities are compatible with multif ocal pneumonia with likely viral etiology. 3. Mild reactive hilar and mediastinal adenopathy. ACT 112: Negative or not required by law. The above report was generated using voice recognition software. It may contain grammatical, syntax o r spelling errors. Electronically signed by: Leo Phillips M.D. 02/16/2021 7:49 AM
[2021-02-16] MEDS: CARBOHYDRATES FOR HYPOGLYCEMIA PO PRN (08:13)
[2021-02-16] MEDS: dilTIAZem HCL 120 MG CAPCR PO SCH (08:17)
[2021-02-16] MEDS: CETIRIZINE HCL 10 MG TABLET PO SCH (08:17)
[2021-02-16] MEDS: ESCITALOPRAM OXALATE 10 MG TAB PO SCH (08:18)
[2021-02-16] MEDS: CYANOCOBALAMIN 500 MCG TABLET (VITAMIN B-12) PO SCH (08:18)
[2021-02-16] MEDS: ATORVASTATIN 20 MG TAB PO SCH (08:19)
[2021-02-16] MEDS: TOPIRAMATE 50 MG TAB PO SCH ×2 (08:19→21:55)
[2021-02-16] MEDS: PANTOprazole 40 MG TAB PO SCH (08:19)
[2021-02-16] MEDS: dexAMETHasone 6 MG in SYRINGE 0 ML IV SCH (08:21)
[2021-02-16] MEDS: INSULIN ASPART 100 UNITS/ML 3 ML PEN SC SCH ×4 (08:30→22:11)
[2021-02-16] MEDS: INSULIN HUMAN NPH SC SCH (08:53)
[2021-02-16] MEDS ORDERED: AZITHROMYCIN 500 MG in DEXTROSE 5% 250 ML IV SCH (09:00)
[2021-02-16] MEDS: ENOXAPARIN INJ 120 MG/0.8 ML SYR SQ SCH ×2 (10:42→21:53)
--- NOTE | 2021-02-16 10:42 | Pharmacy Report ---
Pharmacy Glycemic Short Note 2 - Date of Service February 16, 2021 - Glycemic Short BSG Results (Last 24 hours): 02/15/21 02/15/21 02/15/21 11:41 16:50 19:53 Glucose POC Glucose 205 H 256 H 203 H 02/16/21 02/16/21 02/16/21 05:34 08:00 08:01 Glucose 64 L POC Glucose 53 L* 52 L* 02/16/21 02/16/21 08:27 08:29 Glucose POC Glucose 67 L* 71 OUTPATIENT ANTIDIABETIC REGIMEN: * Lantus 45 units qAM + Lantus 65 units qPM * Novolog 3/40/40 + SSI * HbA1C = 8.3% ASSESSMENT: 02/16: * Patient received total 201 units of insulin yesterday; 90 units Lantus + 40 units NPH + 71 units bolus. * Fasting BSG was low at 52 mg/dl. This is most likely due to the 65 units of Lantus she received last night. * Lantus dose this AM was held. HS Lantus dose scale reduced and ordered based on BSG. * AM Lantus dose for tomorrow also reduced. * Novolog parameters loosened at breakfast then tightened slightly back at lunch since BSG trending up slightly. 02/15/21: * Ms Vale is a 65 y/o F with a PMH of T2DM controlled with insulin who presents with COVID pneumonia. * BSG yesterday was 143 mg/dL. She received dexamethasone 6 mg x 1 then BSG was 215 mg/dL. * Patient was given home dose of 65 units. BSG overnight was 206 mg/dL. Patient received 15 units of Novolog overnight. * Fasting today was 174 mg/dL. * Give Lantus 25 units x 1 (for 15 units overnight plus 10 extra units to decrease fasting to around 150 mg/dL). Continue Lantus 65 units at bedtime. Have lower dose available in case BSGs trend down significantly. * NPH 40 units (0.4 units/kg) for steroid induced hyperglycemia. * Novolog scale based upon basal rate of ~ 90 units/day. PLAN FOR INPATIENT GLYCEMIC CONTROL: * Basal insulin * Lantus held today AM then decreased to 20 units QAM * Lantus 25-35 units scale at HS based on BSGs * Bolus insulin: loosened CR * NovoLog per scale ACHS or Q6hrs while NPO * Goal Range: Low 110 mg/dL - High 140 mg/dL * Correction Factor: 10 mg/dL/unit * Nutritional / Prandial insulin per carb ratio of 1 unit per 4.5 grams CHO consumed PLAN FOR DISCHARGE: * HbA1C is slightly elevated above goal range for patient. Goal range is <8% while currently HbA1C is 8.3% * Recommend checking BSG at least once per day at varying times to establish blood sugar trends. * Then work with provider to tighten insulin. * May benefit from counseling regarding lifestyle modifications.
[2021-02-16] MEDS: BENZONATATE 100 MG CAPSULE PO PRN (11:54)
--- NOTE | 2021-02-16 11:56 | Hospitalist Progress Note ---
Date of Service February 16, 2021 Assessment & Plan (1) Pneumonia due to COVID-19 virus: Plan: - Associated mild acute hypoxic respiratory failure responding to supplemental O2 at this time; Approximately day 9 of symptoms - CXR with bilateral mixed reticular and airspace opacities most prominent in L mid to lower lung and minimal pleural effusion - CTA - non-occlusive PE involving a segmental branch of the RUL; bilateral multilobar intermixed groundglass and consolidative opacities compatible with multifocal pneumonia; mild reactive hilar and mediastinal adenopathy - Continue Therapeutic Lovenox BID - consideration for NOAC conversion - Procalcitonin negative on admission; CRP elevated at 18 on admission and trending down - Given ongoing fever - Zithromax and Aztreonam added and can continue at this time - Remdesivir 200 mg IV x 1 dose then 100 mg dosing starting tomorrow -- Monitor CRP and CMP - Incentive spirometer;flutter valve - Stop further fluids as COVID patients tend to develop a level of fluid overload - assess renal function in AM and consider Lasix or can use home chlorthalidone - Continue Dexamethasone 6 mg IV - continue for 10 days (2) Paroxysmal SVT (supraventricular tachycardia): Plan: - Remains sinus rhythm on monitor predominantly - did have a run of SVT at rate of 160 around mid-night and will monitor; monitor for bradycardia in setting of Remdesivir - Continue Diltiazem 120 mg daily (3) KELLY (acute kidney injury): Plan: - IMPROVED - likely in setting of poor oral intake and medications; slight increase on today's labs likely due to IV contrast - Hold Chlorthalidone and Losartan; BMP in AM - Was gently hydrated on admission - will hold fluids to prevent fluid overload (4) Diabetes mellitus, type 2: Plan: - A1c 8.3 - Will have to closely monitor in setting of steroids; did have hypoglycemia this AM but improving - Glycemic management following - appreciate input -- Could consider NPH with Decadron dosing if hyperglycemia occurs (5) Hypertension: Plan: - STABLE; BPs appropriate - Hold Chlorthalidone 25 mg daily and Losartan 100 mg daily and monitor renal function - Labs in AM - will re-introduce pending lab and patient assessment (6) Acid reflux disease: Plan: - Continue Protonix 40 mg daily (7) Hypercholesterolemia: Plan: - Continue Atorvastatin 20 mg daily (8) Severe obstructive sleep apnea: Plan: - Normally sleeps in recliner at home; cannot tolerate CPAP at home -- Can use here if she wishes Plan: Continued hospitalization for IV medication and O2 wean Admission and Anticipated Discharge Date Admission Date: February 14, 2021 Subjective Reports feeling very fatigued today. Has been running a fever overnight but currently afebrile. Is maintaining appropriate saturations on 2 L NC and continues with a cough. Most SOB is on exertion. Did have hypoglycemia this AM but since improved Review of Systems Review of Systems: REVIEW OF SYSTEMS General/Constitutional: + fatigue, + fever ENT: + nasal congestion; Denies sore throat, trouble swallowing Cardiovascular: Denies chest pain, palpitations, edema Respiratory: + productive cough, +SOB mostly exertional; Denies orthopnea GI: Denies nausea, vomiting, abdominal pain, constipation, diarrhea : Denies dysuria Musculoskeletal: Denies joint/muscle aches Neurologic: Denies dizziness/lightheadedness Skin: Denies rash Physical Exam Physical Exam: PHYSICAL EXAM General Appearance: Ill appearing but non-toxic in NAD who is A&O x 3; fatigued appearing HEENT: Head is normocephalic/atraumatic; Hearing grossly intact; Mucous membranes moist Neck: Supple; Trachea midline; Neg JVD Heart: RRR with no M/G/R Lungs: Diminished breath sounds in bases, coarse and coughs with all deep breaths; Respirations unlabored; Neg accessory muscle use Abdomen: Soft, non-tender, non-distended; Positive BS x 4 quadrants Extremities: Capillary refill < 2 seconds; Neg cyanosis or edema Neurological: Speech clear; Gross motor/sensory function intact; Neg focal neurologic deficits Psychiatric: Fatigued/Drowsy but appropriate mood Skin: Normal Color; Warm/Dry Results & Data Results & Data ([facility]) Vital Signs (Past 12 Hours) Vital Signs Temp Pulse Pulse Resp BP Pulse Ox 02/16/21 10:50 92 02/16/21 10:47 37.4 C 88 20 117/69 92 02/16/21 07:23 103 H 02/16/21 07:20 38.1 C H 94 H 18 116/71 93 02/16/21 05:49 39.2 C H 02/16/21 03:51 39.6 C H 102 H 20 114/70 93 02/16/21 00:44 39.5 C H 110 H 20 93 02/16/21 00:15 103 H PG Care Time/CCT Total # of Minutes Spent Total Time Spent with Patient: Total time spent is greater than 50% in coordination of care (as documented) at patient's floor/unit and/or counseling patient: Coding Level of Care Code 77181 Subseq Hosp Care Lvl 3 Diagnoses Pneumonia due to COVID-19 virus U07.1; J12.82 Paroxysmal SVT (supraventricular tachycardia) I47.1 KELLY (acute kidney injury) N17.9 Diabetes mellitus, type 2 E11.9 Hypertension I10 Acid reflux disease K21.9 Hypercholesterolemia E78.00 Severe obstructive sleep apnea G47.33
[2021-02-16] MEDS: REMDESIVIR 100 MG in SODIUM CHLORIDE 0.9% 230 ML IV SCH (12:07)
[2021-02-16] MEDS: SODIUM CHLORIDE 0.9% 10ML FLUSH IV SCH (13:20)
[2021-02-16 15:54] LABS: Appearance Urine Clear (Clear); Bacteria Urine Automated Negative (Negative); Bilirubin Urine Negative (Negative); Blood Urine Trace (Negative); Color Urine Yellow; Epithelial Cell Urine Auto >30 /lpf (0-5); Glucose Urine UA Negative (Negative); Ketones Urine Negative (Negative); Leukocyte Esterase Urine Negative (Negative); Nitrite Urine Negative (Negative); Protein Urine 2+ (Negative); RBC Urine Automated 0-4 /hpf (0-4); Specific Gravity Urine 1.037 (1.000-1.030); Urobilinogen Urine Negative (Negative); pH Urine 5.5 (4.5-7.5)
[2021-02-16] MEDS: INSULIN GLARGINE SOLOSTAR 100 UNITS/ML 3 ML PEN SC SCH (22:12)
[2021-02-17] MEDS: CARBOHYDRATES FOR HYPOGLYCEMIA PO PRN ×3 (03:23→03:52)
[2021-02-17] MEDS: ACETAMINOPHEN 325 MG TAB PO PRN ×2 (03:24→09:17)
[2021-02-17] MEDS: BENZONATATE 100 MG CAPSULE PO PRN ×2 (03:34→12:25)
[2021-02-17] MEDS: ALBUTEROL 0.083% NEBU SOLN 3 ML VIAL NEB PRN (05:01)
[2021-02-17] MEDS ORDERED: FUROSEMIDE 20 MG in SYRINGE 0 ML IV ONE (08:15)
[2021-02-17] MEDS ORDERED: IBUPROFEN 600 MG TAB PO PRN (08:34)
--- NOTE | 2021-02-17 08:52 | Hospitalist Progress Note ---
Date of Service February 17, 2021 Assessment & Plan (1) Pneumonia due to COVID-19 virus: Plan: continue dexamethasone 6mg IV daily x 10 days, change to PO on discharge Remdesivir per protocol fluids have been stopped, give Lasix 20mg IV today to promote neg fluid balance eating better + fever this morning, unclear why, no obvious bacterial infection change to Levaquin today, complete 5 days Tylenol and Motrin for fever CTA with pneumonia but also with PE in segmental branch RUL, continue Lovenox (2) Paroxysmal SVT (supraventricular tachycardia): Plan: - Remains sinus rhythm on monitor predominantly - did have a run of SVT at rate of 160 on 02/15 - Continue Diltiazem 120 mg daily (3) KELLY (acute kidney injury): Plan: - RESOLVED - likely in setting of poor oral intake and medications - Hold Chlorthalidone and Losartan; BMP in AM - Was gently hydrated on admission give Lasix 20mg IV this morning, keep lungs dry (4) Diabetes mellitus, type 2: Plan: - A1c 8.3 - Will have to closely monitor in setting of steroids; labile sugars, hypoglycemia this morning - Glycemic management following - appreciate input (5) Hypertension: Plan: - STABLE; BPs appropriate - Hold Chlorthalidone 25 mg daily and Losartan 100 mg daily and monitor renal function - Labs in AM - will re-introduce pending lab and patient assessment (6) Acid reflux disease: Plan: - Continue Protonix 40 mg daily (7) Hypercholesterolemia: Plan: - Continue Atorvastatin 20 mg daily (8) Severe obstructive sleep apnea: Plan: - Normally sleeps in recliner at home; cannot tolerate CPAP at home -- Can use here if she wishes Plan: Continued hospitalization for IV medication and O2 wean Admission and Anticipated Discharge Date Admission Date: February 14, 2021 Subjective patient resting in bed, diaphoretic from recent fever breaking appears very weak and ill, but she states she is better eating a little more, breathing better, stable on 2L discussed that we should increase activity, get OOB to chair and sit upright, use incentive spirometer for deep breathing will give Lasix 20mg IV to remove excess fluids, keep neg fluid balance updated RN of the plan added Motrin PRN for fever change to Levaquin for antibiotic coverage cancelled pulmonary consultation Review of Systems Review of Systems: All systems reviewed & are unremarkable except as noted in Subjective Physical Exam Physical Exam: General: well developed, well nourished, ill appearing, d iaphoretic Neck: supple, trachea midline, normal thyroid Lungs: crackles in bases, normal respiratory effort, no accessory muscle use, no distress, + cough Heart: regular S1 and S2, no murmur, peripheral pulses normal, capillary refill normal, no edema Abdomen: soft, NT, ND, + BS, no hepatomegaly, normal to percussion Extremities: normal in appearance, no cyanosis, no petechiae, strength is 5/5 bi laterally Neuro: awake, cooperative, moves all extremities, no focal motor deficits, CN II-XII intact, sensation in extremities intact, normal speech Skin: warm, dry, no rash, normal turgor Psych: Awake, alert oriented x 3, euthymic affect Results & Data Results & Data ([facility]) Vital Signs (Past 12 Hours) Vital Signs Temp Pulse Pulse Resp BP Pulse Ox 02/17/21 08:30 37.7 C H 91 H 20 128/77 92 02/17/21 05:03 85 22 92 02/17/21 02:57 38.5 C H 86 16 128/73 95 02/16/21 23:28 37 C 64 16 122/79 96 02/16/21 23:16 82 Laboratory Results Laboratory Results - last 24 hr 02/17/21 02/17/21 02/17/21 03:20 03:37 03:52 Sodium Potassium Chloride Carbon Dioxide Anion Gap BUN Creatinine Est Cr Clr Drug Dosing Est GFR ( Amer) Est GFR (Non-Af Amer) BUN/Creatinine Ratio Glucose POC Glucose 65 L* 65 L* 63 L* Calcium 02/17/21 02/17/21 02/17/21 04:09 07:55 08:22 Sodium 141 Potassium 3.3 L Chloride 105 Carbon Dioxide 29 Anion Gap 7.0 BUN 24 H Creatinine 1.09 Est Cr Clr Drug Dosing 65.8 Est GFR ( Amer) 62.6 Est GFR (Non-Af Amer) 54.0 BUN/Creatinine Ratio 21.6 H Glucose 99 POC Glucose 93 113 H Calcium 8.4 L 02/17/21 02/17/21 02/17/21 12:02 17:12 17:13 Sodium Potassium Chloride Carbon Dioxide Anion Gap BUN Creatinine Est Cr Clr Drug Dosing Est GFR ( Amer) Est GFR (Non-Af Amer) BUN/Creatinine Ratio Glucose POC Glucose 187 H 297 H 295 H Calcium 02/17/21 20:47 Sodium Potassium Chloride Carbon Dioxide Anion Gap BUN Creatinine Est Cr Clr Drug Dosing Est GFR ( Amer) Est GFR (Non-Af Amer) BUN/Creatinine Ratio Glucose POC Glucose 233 H Calcium Medications Administered Current Inpatient Medications Acetaminophen (Acetaminophen 325 Mg Tab) 650 mg PO Q4H PRN PRN Reason: Pain or Fever Stop: 03/16/21 23:24 Last Admin: 02/17/21 09:17 Dose: 650 mg Documented by: Albuterol (Albuterol 0.083% Nebu Soln 3 Ml Vial) 2.5 mg NEB Q6R PRN PRN Reason: Shortness Of Breath Or Wheezing Stop: 03/16/21 00:59 Last Admin: 02/17/21 05:01 Dose: 2.5 mg Documented by: Atorvastatin Calcium (Atorvastatin 20 Mg Tab) 20 mg PO DAILY INDU Stop: 03/17/21 08:59 Last Admin: 02/17/21 09:11 Dose: 20 mg Documented by: Benzonatate (Benzonatate 100 Mg Capsule) 100 mg PO Q8H PRN PRN Reason: Cough Stop: 03/17/21 20:37 Last Admin: 02/17/21 12:25 Dose: 100 mg Documented by: Cetirizine HCl (Cetirizine Hcl 10 Mg Tablet) 10 mg PO DAILY INDU Stop: 03/17/21 08:59 Last Admin: 02/17/21 09:11 Dose: 10 mg Documented by: Cyanocobalamin (Cyanocobalamin 500 Mcg Tablet (Vitamin B-12)) 1,000 mcg PO QAM INDU Stop: 03/17/21 08:59 Last Admin: 02/17/21 09:11 Dose: 1,000 mcg Documented by: Dextrose (Dextrose 50% 50 Ml Syringe) 25 - 50 ml IV UD PRN; Protocol PRN Reason: Hypoglycemia Protocol Stop: 03/16/21 23:24 Diltiazem HCl (Diltiazem Hcl 120 Mg Capcr) 120 mg PO DAILY INDU Stop: 03/17/21 08:59 Last Admin: 02/17/21 09:11 Dose: 120 mg Documented by: Enoxaparin Sodium (Enoxaparin Inj 120 Mg/0.8 Ml Syr) 111 mg SQ Q12H INDU Stop: 03/17/21 00:14 Last Admin: 02/17/21 20:51 Dose: 111 mg Documented by: Escitalopram Oxalate (Escitalopram Oxalate 10 Mg Tab) 15 mg PO DAILY INDU Stop: 03/17/21 08:59 Last Admin: 02/17/21 09:11 Dose: 15 mg Documented by: Glucagon (Glucagon For Inj 1 Mg Vial) 1 mg SQ UD PRN; Protocol PRN Reason: Hypoglycemia Protocol Stop: 03/16/21 23:24 Glucose (Glucose 10 Tabs/Tube) 4 - 8 tabs PO UD PRN; Protocol PRN Reason: Hypoglycemia Protocol Stop: 03/16/21 23:24 Glucose (Glucose 40% Gel 15 Gm Tube) 15 - 30 gm PO UD PRN; Protocol PRN Reason: Hypoglycemia Protocol Stop: 03/16/21 23:24 Dexamethasone 6 mg/ Syringe 1.5 mls @ 1 mls/min IV DAILY INDU Stop: 02/25/21 08:59 Last Admin: 02/17/21 09:49 Dose: 1 mls/min Documented by: Remdesivir 100 mg/ Sodium (Chloride) 250 mls @ 250 mls/hr IV Q24H INDU; Protocol Stop: 02/19/21 12:59 Last Infusion: 02/17/21 13:16 Dose: Infused Documented by: Levofloxacin/Dextrose (Levaquin/D5w) 750 mg in 150 mls @ 100 mls/hr IV Q24H INDU; Protocol Stop: 02/24/21 08:59 Last Infusion: 02/17/21 12:08 Dose: Infused Documented by: Ibuprofen (Ibuprofen 600 Mg Tab) 600 mg PO Q6H PRN PRN Reason: Fever Stop: 03/19/21 08:33 Last Admin: 02/17/21 12:25 Dose: 600 mg Documented by: Insulin Aspart (Insulin Aspart 100 Units/Ml 3 Ml Pen) 0 units SC ACHS INDU; Protocol Stop: 03/17/21 00:14 Last Admin: 02/17/21 21:08 Dose: 10 units Documented by: Insulin Aspart (Insulin Aspart 100 Units/Ml 3 Ml Pen) 0 units SC 0400 IN[facility]; Protocol Stop: 02/18/21 04:01 Insulin Glargine (Insulin Glargine Solostar 100 Units/Ml 3 Ml Pen) 0 units SC HS INDU; Protocol Stop: 03/17/21 20:59 Last Admin: 02/17/21 21:08 Dose: 30 units Documented by: Insulin Human NPH (Insulin Human Nph) 35 units SC DAILY [facility] Stop: 03/19/21 08:59 Last Admin: 02/17/21 09:55 Dose: 35 units Documented by: Miscellaneous (Carbohydrates For Hypoglycemia ) 15 - 30 gm PO UD PRN PRN Reason: Hypoglycemia Protocol Stop: 03/16/21 23:24 Last Admin: 02/17/21 03:52 Dose: 14 gm Documented by: Miscellaneous Information (Pharmacy Glycemic Mgmt Consult) 1 ea N/A UD PRN; Protocol PRN Reason: Consult Stop: 03/16/21 23:24 Ondansetron HCl (Ondansetron Inj 2 Mg/Ml 2 Ml Vial) 4 mg IV Q6H PRN PRN Reason: Nausea Stop: 03/16/21 23:24 Pantoprazole Sodium (Pantoprazole 40 Mg Tab) 40 mg PO DAILY [facility]; Protocol Stop: 03/17/21 08:59 Last Admin: 02/17/21 09:11 Dose: 40 mg Documented by: Potassium Chloride (Potassium Chloride Crtab 20 Meq Tabcr) 20 meq PO BID17 [facility] Stop: 03/19/21 10:29 Last Admin: 02/17/21 17:30 Dose: 20 meq Documented by: Sodium Chloride (Sodium Chloride 0.9% 10ml Flush) 30 ml IV DAILY@1300 [facility] Stop: 02/19/21 13:01 Last Admin: 02/17/21 12:07 Dose: 30 ml Documented by: Topiramate (Topiramate 50 Mg Tab) 50 mg PO BID [facility] Stop: 03/17/21 00:00 Last Admin: 02/17/21 20:51 Dose: 50 mg Documented by: PG Care Time/CCT Total # of Minutes Spent Total Time Spent with Patient: Total time spent is greater than 50% in coordination of care (as documented) at patient's floor/unit and/or counseling patient: Coding Level of Care Code 62715 Subseq Hosp Care Lvl 3 Diagnoses Pneumonia due to COVID-19 virus U07.1; J12.82 Paroxysmal SVT (supraventricular tachycardia) I47.1 KELLY (acute kidney injury) N17.9 Diabetes mellitus, type 2 E11.9 Hypertension I10 Acid reflux disease K21.9 Hypercholesterolemia E78.00 Severe obstructive sleep apnea G47.33
[2021-02-17] MEDS ORDERED: INSULIN GLARGINE SOLOSTAR 100 UNITS/ML 3 ML PEN SC SCH (09:00)
[2021-02-17 09:09] LABS: BUN Creatinine Ratio 21.6 (10-20); Calcium 8.4 mg/dl (8.5-10.1); Creatinine Clr Calc Pharmacy 65.8 ml/min; Est GFR (African American) 62.6 ml/min; Potassium 3.3 mmol/L (3.5-5.1)
[2021-02-17] MEDS: ESCITALOPRAM OXALATE 10 MG TAB PO SCH (09:11)
[2021-02-17] MEDS: TOPIRAMATE 50 MG TAB PO SCH ×2 (09:11→20:51)
[2021-02-17] MEDS: PANTOprazole 40 MG TAB PO SCH (09:11)
[2021-02-17] MEDS: CYANOCOBALAMIN 500 MCG TABLET (VITAMIN B-12) PO SCH (09:11)
[2021-02-17] MEDS: ATORVASTATIN 20 MG TAB PO SCH (09:11)
[2021-02-17] MEDS: CETIRIZINE HCL 10 MG TABLET PO SCH (09:11)
[2021-02-17] MEDS: dilTIAZem HCL 120 MG CAPCR PO SCH (09:11)
[2021-02-17] MEDS: levoFLOXacin/D5W 750 MG/150 ML BAG IV SCH (09:14)
[2021-02-17] MEDS: ENOXAPARIN INJ 120 MG/0.8 ML SYR SQ SCH ×2 (09:15→20:51)
[2021-02-17] MEDS: INSULIN ASPART 100 UNITS/ML 3 ML PEN SC SCH ×4 (09:31→21:08)
[2021-02-17] MEDS: dexAMETHasone 6 MG in SYRINGE 0 ML IV SCH (09:49)
[2021-02-17] MEDS: INSULIN HUMAN NPH SC SCH (09:55)
[2021-02-17] MEDS: REMDESIVIR 100 MG in SODIUM CHLORIDE 0.9% 230 ML IV SCH (12:06)
[2021-02-17] MEDS: POTASSIUM CHLORIDE CRTAB 20 MEQ TABCR PO SCH ×2 (12:06→17:30)
[2021-02-17] MEDS: SODIUM CHLORIDE 0.9% 10ML FLUSH IV SCH (12:07)
--- NOTE | 2021-02-17 15:10 | Pharmacy Report ---
Pharmacy Glycemic Short Note 2 - Date of Service February 17, 2021 - Glycemic Short BSG Results (Last 24 hours): 02/16/21 02/16/21 02/17/21 16:16 20:10 03:20 Glucose POC Glucose 129 H 126 H 65 L* 02/17/21 02/17/21 02/17/21 03:37 03:52 04:09 Glucose POC Glucose 65 L* 63 L* 93 02/17/21 02/17/21 02/17/21 07:55 08:22 12:02 Glucose 99 POC Glucose 113 H 187 H OUTPATIENT ANTIDIABETIC REGIMEN: * Lantus 45 units qAM + Lantus 65 units qPM * Novolog 3/40/40 + SSI * HbA1C = 8.3% ASSESSMENT: 02/17: * Marlys received 80 units of insulin yesterday * 40 units NPH, 30 units Lantus, 10 units Novolog * remains on DXM 6 mg IV daily * Fasting hypoglycemia * Current regimen is mostly basal insulin. Will further back of NPH and Lantus (likely still experiencing effects from 90 units of Lantus the day prior). Lantus will be given at bedtime only today. May need to resume BID dosing tomorrow based on home usage. * Post prandial BSGs acceptable. No change to novolog. 02/16: * Patient received total 201 units of insulin yesterday; 90 units Lantus + 40 units NPH + 71 units bolus. * Fasting BSG was low at 52 mg/dl. This is most likely due to the 65 units of Lantus she received last night. * Lantus dose this AM was held. Lantus dose scale reduced and ordered based on BSG. * AM Lantus dose for tomorrow also reduced. * Novolog parameters loosened at breakfast then tightened slightly back at lunch since BSG trending up slightly. 02/15/21: * Ms Vale is a 65 y/o F with a PMH of T2DM controlled with insulin who presents with COVID pneumonia. * BSG yesterday was 143 mg/dL. She received dexamethasone 6 mg x 1 then BSG was 215 mg/dL. * Patient was given home dose of 65 units. BSG overnight was 206 mg/dL. Patient received 15 units of Novolog overnight. * Fasting today was 174 mg/dL. * Give Lantus 25 units x 1 (for 15 units overnight plus 10 extra units to decrease fasting to around 150 mg/dL). Continue Lantus 65 units at bedtime. Have lower dose available in case BSGs trend down significantly. * NPH 40 units (0.4 units/kg) for steroid induced hyperglycemia. * Novolog scale based upon basal rate of ~ 90 units/day. PLAN FOR INPATIENT GLYCEMIC CONTROL: * Basal insulin - decrease * Lantus 20-30 units scale at HS based on BSGs * NPH 35 units SQ once daily - given with DXM * Bolus insulin: loosened CR * NovoLog per scale ACHS or Q6hrs while NPO * Goal Range: Low 110 mg/dL - High 140 mg/dL * Correction Factor: 10 mg/dL/unit * Nutritional / Prandial insulin per carb ratio of 1 unit per 4.5 grams CHO consumed PLAN FOR DISCHARGE: * HbA1C is slightly elevated above goal range for patient. Goal range is <8% while currently HbA1C is 8.3% * Recommend checking BSG at least once per day at varying times to establish blood sugar trends. * Then work with provider to tighten insulin. * May benefit from counseling regarding lifestyle modifications.
[2021-02-17] MEDS: INSULIN GLARGINE SOLOSTAR 100 UNITS/ML 3 ML PEN SC SCH (21:08)
[2021-02-18] MEDS ORDERED: INSULIN ASPART 100 UNITS/ML 3 ML PEN SC SCH (04:00)
[2021-02-18] MEDS ORDERED: FUROSEMIDE 20 MG in SYRINGE 0 ML IV ONE (08:15)
[2021-02-18] MEDS: dexAMETHasone 6 MG in SYRINGE 0 ML IV SCH (08:23)
[2021-02-18] MEDS: levoFLOXacin/D5W 750 MG/150 ML BAG IV SCH (08:24)
[2021-02-18] MEDS: POTASSIUM CHLORIDE CRTAB 20 MEQ TABCR PO SCH ×2 (08:29→17:56)
[2021-02-18] MEDS: TOPIRAMATE 50 MG TAB PO SCH ×2 (08:29→21:32)
[2021-02-18] MEDS: CETIRIZINE HCL 10 MG TABLET PO SCH (08:29)
[2021-02-18] MEDS: PANTOprazole 40 MG TAB PO SCH (08:29)
[2021-02-18] MEDS: dilTIAZem HCL 120 MG CAPCR PO SCH (08:29)
[2021-02-18] MEDS: ATORVASTATIN 20 MG TAB PO SCH (08:30)
[2021-02-18] MEDS: ESCITALOPRAM OXALATE 10 MG TAB PO SCH (08:30)
[2021-02-18] MEDS: INSULIN ASPART 100 UNITS/ML 3 ML PEN SC SCH ×4 (08:30→21:33)
[2021-02-18] MEDS: CYANOCOBALAMIN 500 MCG TABLET (VITAMIN B-12) PO SCH (08:30)
[2021-02-18] MEDS: INSULIN GLARGINE SOLOSTAR 100 UNITS/ML 3 ML PEN SC SCH ×2 (08:58→21:33)
[2021-02-18] MEDS: INSULIN HUMAN NPH SC SCH (08:59)
--- NOTE | 2021-02-18 09:06 | Pharmacy Report ---
Pharmacy Glycemic Short Note 2 - Date of Service February 18, 2021 - Glycemic Short BSG Results (Last 24 hours): 02/17/21 02/17/21 02/17/21 08:22 12:02 17:12 Glucose 99 POC Glucose 187 H 297 H 02/17/21 02/17/21 02/18/21 17:13 20:47 04:12 Glucose POC Glucose 295 H 233 H 138 H 02/18/21 07:43 Glucose POC Glucose 132 H OUTPATIENT ANTIDIABETIC REGIMEN: * Lantus 45 units qAM + Lantus 65 units qPM * Novolog 3/40/40 + SSI * HbA1C = 8.3% ASSESSMENT: 02/18 * Pt has received 121 units of insulin over the past 24hrs * 30 units of basal with Lantus * 35 units of NPH for steroid induced hyperglycemia * 56 units of bolus with NovoLog * BSGs [phone] mg/dl * BSGs rise throughout the day; Pt takes Lantus BID but it is only ordered 24hrs in house secondary to LOW BSGs. Will conservatively add AM Lantus back to regimen * Slightly tighten CR for steroid induced hyperglycemia 02/17: * Marlys received 80 units of insulin yesterday * 40 units NPH, 30 units Lantus, 10 units Novolog * remains on DXM 6 mg IV daily * Fasting hypoglycemia * Current regimen is mostly basal insulin. Will further back of NPH and Lantus (likely still experiencing effects from 90 units of Lantus the day prior). Lantus will be given at bedtime only today. May need to resume BID dosing tomorrow based on home usage. * Post prandial BSGs acceptable. No change to novolog. 02/16: * Patient received total 201 units of insulin yesterday; 90 units Lantus + 40 units NPH + 71 units bolus. * Fasting BSG was low at 52 mg/dl. This is most likely due to the 65 units of Lantus she received last night. * Lantus dose this AM was held. HS Lantus dose scale reduced and ordered based on BSG. * AM Lantus dose for tomorrow also reduced. * Novolog parameters loosened at breakfast then tightened slightly back at lunch since BSG trending up slightly. 02/15/21: * Ms Vale is a 65 y/o F with a PMH of T2DM controlled with insulin who presents with COVID pneumonia. * BSG yesterday was 143 mg/dL. She received dexamethasone 6 mg x 1 then BSG was 215 mg/dL. * Patient was given home dose of 65 units. BSG overnight was 206 mg/dL. Patient received 15 units of Novolog overnight. * Fasting today was 174 mg/dL. * Give Lantus 25 units x 1 (for 15 units overnight plus 10 extra units to decrease fasting to around 150 mg/dL). Continue Lantus 65 units at bedtime. Have lower dose available in case BSGs trend down significantly. * NPH 40 units (0.4 units/kg) for steroid induced hyperglycemia. * Novolog scale based upon basal rate of ~ 90 units/day. PLAN FOR INPATIENT GLYCEMIC CONTROL: * Basal insulin * Lantus 15 units SQ AM + 30 units SQ PM * NPH 35 units SQ once daily - given with DXM * Bolus insulin: tighten CR * NovoLog per scale ACHS or Q6hrs while NPO * Goal Range: Low 110 mg/dL - High 140 mg/dL * Correction Factor: 10 mg/dL/unit * Nutritional / Prandial insulin per carb ratio of 1 unit per 4 grams CHO consumed PLAN FOR DISCHARGE: * HbA1C is slightly elevated above goal range for patient. Goal range is <8% while currently HbA1C is 8.3% * Recommend checking BSG at least once per day at varying times to establish blood sugar trends. * Then work with provider to tighten insulin. * May benefit from counseling regarding lifestyle modifications.
[2021-02-18] MEDS: BENZONATATE 100 MG CAPSULE PO PRN ×2 (09:49→21:53)
[2021-02-18] MEDS: ENOXAPARIN INJ 120 MG/0.8 ML SYR SQ SCH ×2 (10:07→21:31)
[2021-02-18] MEDS: REMDESIVIR 100 MG in SODIUM CHLORIDE 0.9% 230 ML IV SCH (12:00)
[2021-02-18] MEDS: SODIUM CHLORIDE 0.9% 10ML FLUSH IV SCH (13:27)
--- NOTE | 2021-02-18 15:21 | Hospitalist Progress Note ---
Date of Service February 18, 2021 Assessment & Plan (1) Pneumonia due to COVID-19 virus: Plan: continue dexamethasone 6mg IV daily x 10 days, change to PO on discharge Remdesivir per protocol Lasix 20mg IV daily for negative fluid balance, responding well eating better no fever for 24 hours changed to Levaquin 02/17, complete 5 days, today is day 2 Tylenol and Motrin for fever CTA with pneumonia but also with PE in segmental branch RUL, continue Lovenox (2) Pulmonary embolism: Plan: right upper lobe, segmental Lovenox BID change to Xarelto on discharge, treat for 3-6 months (3) Paroxysmal SVT (supraventricular tachycardia): Plan: - Remains sinus rhythm on monitor predominantly - did have a run of SVT at rate of 160 on 02/15 - Continue Diltiazem 120 mg daily move to medical floor, stable for several days (4) KELLY (acute kidney injury): Plan: - RESOLVED - likely in setting of poor oral intake and medications - Hold Chlorthalidone, resume Losartan tomorrow - Was gently hydrated on admission give Lasix 20mg IV daily for negative fluid balance now that she is eating/drinking (5) Diabetes mellitus, type 2: Plan: - A1c 8.3 - Will have to closely monitor in setting of steroids; labile sugars, hypoglycemia this morning - Glycemic management following - appreciate input (6) Hypertension: Plan: - BP up slightly, resume Losartan - Hold Chlorthalidone 25 mg daily - Labs in AM (7) Acid reflux disease: Plan: - Continue Protonix 40 mg daily (8) Hypercholesterolemia: Plan: - Continue Atorvastatin 20 mg daily (9) Severe obstructive sleep apnea: Plan: - Normally sleeps in recliner at home; cannot tolerate CPAP at home -- Can use here if she wishes Plan: hopeful she will be ready for discharge in 24-48 hours Admission and Anticipated Discharge Date Admission Date: February 14, 2021 Subjective patient has a very flat affect, her mother who is admitted is not doing very well she is stable on 2L, no fever for 24 hours, will continue the Levaquin no diarrhea, stools are formed, making a lot of urine with Lasix minimal cough she sat in a chair most of the day yesterday, encouraged her to do the same today no labs today Review of Systems Review of Systems: All systems reviewed & are unremarkable except as noted in Subjective Constitutional: + fatigue and + weakness; no fever, no chills and no sweats Respiratory: + cough and + dyspnea on exertion; no dyspnea Cardiovascular: no chest pain and no edema Gastrointestinal: no abdominal pain, no nausea, no vomiting, no constipation and no diarrhea/loose stools Physical Exam Physical Exam: General: well developed, well nourished, ill appearing, diaphoretic Neck: supple, trachea midline, normal thyroid Lungs: crackles in bases, normal respiratory effort, no accessory muscle use, no distress, + cough Heart: regular S1 and S2, no murmur, peripheral pulses normal, capillary refill normal, no edema Abdomen: soft, NT, ND, + BS, no hepatomegaly, normal to percussion Extremities: normal in appearance, no cyanosis, no petechiae, strength is 5/5 bilaterally Neuro: awake, cooperative, moves all extremities, no focal motor deficits, CN II-XII intact, sensation in extremities intact, normal speech Skin: warm, dry, no rash, normal turgor Psych: Awake, alert oriented x 3, flat affect Results & Data Results & Data ([facility]) Vital Signs (Past 12 Hours) Vital Signs Temp Pulse Pulse Resp BP Pulse Ox 02/18/21 07:54 37.0 C 81 22 142/63 H 91 02/18/21 07:31 74 Laboratory Results Laboratory Results - last 24 hr 02/17/21 02/17/21 02/17/21 17:12 17:13 20:47 POC Glucose 297 H 295 H 233 H 02/18/21 02/18/21 02/18/21 04:12 07:43 11:56 POC Glucose 138 H 132 H 230 H Medications Administered Current Inpatient Medications Acetaminophen (Acetaminophen 325 Mg Tab) 650 mg PO Q4H PRN PRN Reason: Pain or Fever Stop: 03/16/21 23:24 Last Admin: 02/17/21 09:17 Dose: 650 mg Documented by: Albuterol (Albuterol 0.083% Nebu Soln 3 Ml Vial) 2.5 mg NEB Q6R PRN PRN Reason: Shortness Of Breath Or Wheezing Stop: 03/16/21 00:59 Last Admin: 02/17/21 05:01 Dose: 2.5 mg Documented by: Atorvastatin Calcium (Atorvastatin 20 Mg Tab) 20 mg PO DAILY [facility] Stop: 03/17/21 08:59 Last Admin: 02/18/21 08:30 Dose: 20 mg Documented by: Benzonatate (Benzonatate 100 Mg Capsule) 100 mg PO Q8H PRN PRN Reason: Cough Stop: 03/17/21 20:37 Last Admin: 02/18/21 09:49 Dose: 100 mg Documented by: Cetirizine HCl (Cetirizine Hcl 10 Mg Tablet) 10 mg PO DAILY [facility] Stop: 03/17/21 08:59 Last Admin: 02/18/21 08:29 Dose: 10 mg Documented by: Cyanocobalamin (Cyanocobalamin 500 Mcg Tablet (Vitamin B-12)) 1,000 mcg PO QAM [facility] Stop: 03/17/21 08:59 Last Admin: 02/18/21 08:30 Dose: 1,000 mcg Documented by: Dextrose (Dextrose 50% 50 Ml Syringe) 25 - 50 ml IV UD PRN; Protocol PRN Reason: Hypoglycemia Protocol Stop: 03/16/21 23:24 Diltiazem HCl (Diltiazem Hcl 120 Mg Capcr) 120 mg PO DAILY [facility] Stop: 03/17/21 08:59 Last Admin: 02/18/21 08:29 Dose: 120 mg Documented by: Enoxaparin Sodium (Enoxaparin Inj 120 Mg/0.8 Ml Syr) 111 mg SQ Q12H [facility] Stop: 03/17/21 00:14 Last Admin: 02/18/21 10:07 Dose: 111 mg Documented by: Escitalopram Oxalate (Escitalopram Oxalate 10 Mg Tab) 15 mg PO DAILY [facility] Stop: 03/17/21 08:59 Last Admin: 02/18/21 08:30 Dose: 15 mg Documented by: Glucagon (Glucagon For Inj 1 Mg Vial) 1 mg SQ UD PRN; Protocol PRN Reason: Hypoglycemia Protocol Stop: 03/16/21 23:24 Glucose (Glucose 10 Tabs/Tube) 4 - 8 tabs PO UD PRN; Protocol PRN Reason: Hypoglycemia Protocol Stop: 03/16/21 23:24 Glucose (Glucose 40% Gel 15 Gm Tube) 15 - 30 gm PO UD PRN; Protocol PRN Reason: Hypoglycemia Protocol Stop: 03/16/21 23:24 Dexamethasone 6 mg/ Syringe 1.5 mls @ 1 mls/min IV DAILY [facility] Stop: 02/25/21 08:59 Last Admin: 02/18/21 08:23 Dose: 1 mls/min Documented by: Remdesivir 100 mg/ Sodium (Chloride) 250 mls @ 250 mls/hr IV Q24H [facility]; Protocol Stop: 02/19/21 12:59 Last Infusion: 02/18/21 13:21 Dose: Infused Documented by: Levofloxacin/Dextrose (Levaquin/D5w) 750 mg in 150 mls @ 100 mls/hr IV Q24H [facility]; Protocol Stop: 02/24/21 08:59 Last Infusion: 02/18/21 10:07 Dose: Infused Documented by: Ibuprofen (Ibuprofen 600 Mg Tab) 600 mg PO Q6H PRN PRN Reason: Fever Stop: 03/19/21 08:33 Last Admin: 02/17/21 12:25 Dose: 600 mg Documented by: Insulin Aspart (Insulin Aspart 100 Units/Ml 3 Ml Pen) 0 units SC ACHS [facility]; Protocol Stop: 03/17/21 00:14 Last Admin: 02/18/21 12:07 Dose: 17 units Documented by: Insulin Glargine (Insulin Glargine Solostar 100 Units/Ml 3 Ml Pen) 15 units SC DAILY [facility]; Protocol Stop: 03/20/21 08:59 Last Admin: 02/18/21 08:58 Dose: 15 units Documented by: Insulin Glargine (Insulin Glargine Solostar 100 Units/Ml 3 Ml Pen) 30 units SC HS [facility]; Protocol Stop: 03/20/21 20:59 Insulin Human NPH (Insulin Human Nph) 35 units SC DAILY [facility] Stop: 03/19/21 08:59 Last Admin: 02/18/21 08:59 Dose: 35 units Documented by: Miscellaneous (Carbohydrates For Hypoglycemia ) 15 - 30 gm PO UD PRN PRN Reason: Hypoglycemia Protocol Stop: 03/16/21 23:24 Last Admin: 02/17/21 03:52 Dose: 14 gm Documented by: Miscellaneous Information (Pharmacy Glycemic Mgmt Consult) 1 ea N/A UD PRN; Protocol PRN Reason: Consult Stop: 03/16/21 23:24 Ondansetron HCl (Ondansetron Inj 2 Mg/Ml 2 Ml Vial) 4 mg IV Q6H PRN PRN Reason: Nausea Stop: 03/16/21 23:24 Pantoprazole Sodium (Pantoprazole 40 Mg Tab) 40 mg PO DAILY [facility]; Protocol Stop: 03/17/21 08:59 Last Admin: 02/18/21 08:29 Dose: 40 mg Documented by: Potassium Chloride (Potassium Chloride Crtab 20 Meq Tabcr) 20 meq PO BID17 [facility] Stop: 03/19/21 10:29 Last Admin: 02/18/21 08:29 Dose: 20 meq Documented by: Sodium Chloride (Sodium Chloride 0.9% 10ml Flush) 30 ml IV DAILY@1300 [facility] Stop: 02/19/21 13:01 Last Admin: 02/18/21 13:27 Dose: 30 ml Documented by: Topiramate (Topiramate 50 Mg Tab) 50 mg PO BID [facility] Stop: 03/17/21 00:00 Last Admin: 02/18/21 08:29 Dose: 50 mg Documented by: PG Care Time/CCT Total # of Minutes Spent Total Time Spent with Patient: Total time spent is greater than 50% in coordination of care (as documented) at patient's floor/unit and/or counseling patient: Coding Level of Care Code 35197 Subseq Hosp Care Lvl 3 Diagnoses Pneumonia due to COVID-19 virus U07.1; J12.82 Paroxysmal SVT (supraventricular tachycardia) I47.1 KELLY (acute kidney injury) N17.9 Diabetes mellitus, type 2 E11.9 Hypertension I10 Acid reflux disease K21.9 Hypercholesterolemia E78.00 Severe obstructive sleep apnea G47.33 Pulmonary embolism I26.99
[2021-02-19 08:04] LABS: BUN Creatinine Ratio 30.7 (10-20); Calcium 8.6 mg/dl (8.5-10.1); Creatinine Clr Calc Pharmacy 72.4 ml/min; Est GFR (African American) 71.2 ml/min; Est GFR (Non-African American) 61.4 ml/min; Magnesium 2.4 mg/dl (1.8-2.4); Phosphorus 3.2 mg/dl (2.5-4.9); Potassium 3.5 mmol/L (3.5-5.1)
[2021-02-19] MEDS: TOPIRAMATE 50 MG TAB PO SCH ×2 (08:51→21:29)
[2021-02-19] MEDS: POTASSIUM CHLORIDE CRTAB 20 MEQ TABCR PO SCH ×2 (08:51→17:49)
[2021-02-19] MEDS: CETIRIZINE HCL 10 MG TABLET PO SCH (08:52)
[2021-02-19] MEDS: CYANOCOBALAMIN 500 MCG TABLET (VITAMIN B-12) PO SCH (08:52)
[2021-02-19] MEDS: LOSARTAN POTASSIUM 50 MG TAB PO SCH (08:52)
[2021-02-19] MEDS: ESCITALOPRAM OXALATE 10 MG TAB PO SCH (08:52)
[2021-02-19] MEDS: dilTIAZem HCL 120 MG CAPCR PO SCH (08:52)
[2021-02-19] MEDS: ATORVASTATIN 20 MG TAB PO SCH (08:52)
[2021-02-19] MEDS: PANTOprazole 40 MG TAB PO SCH (08:52)
[2021-02-19] MEDS: INSULIN HUMAN NPH SC SCH (09:04)
[2021-02-19] MEDS: INSULIN ASPART 100 UNITS/ML 3 ML PEN SC SCH ×4 (09:04→21:27)
[2021-02-19] MEDS: INSULIN GLARGINE SOLOSTAR 100 UNITS/ML 3 ML PEN SC SCH ×2 (09:04→21:29)
[2021-02-19] MEDS: levoFLOXacin/D5W 750 MG/150 ML BAG IV SCH (09:34)
[2021-02-19] MEDS: dexAMETHasone 6 MG in SYRINGE 0 ML IV SCH (09:34)
[2021-02-19] MEDS: BENZONATATE 100 MG CAPSULE PO PRN ×2 (10:25→21:37)
[2021-02-19] MEDS: REMDESIVIR 100 MG in SODIUM CHLORIDE 0.9% 230 ML IV SCH (13:12)
[2021-02-19] MEDS: SODIUM CHLORIDE 0.9% 10ML FLUSH IV SCH (14:13)
--- NOTE | 2021-02-19 14:19 | Hospitalist Progress Note ---
Date of Service February 19, 2021 Assessment & Plan (1) Pneumonia due to COVID-19 virus: Plan: continue dexamethasone 6mg IV daily, day 6 today Remdesivir per protocol, completed 5 days Lasix 20mg IV on 02/18 and 02/17, hold today as BUN is 30 eating better no fever for 48 hours changed to Levaquin 02/17, complete 5 days, today is day 3 Tylenol and Motrin for fever CTA with pneumonia but also with PE in segmental branch RUL, change Lovenox to Xarelto 15mg BID Codeine PRN for cough, as coughing spells leading to desaturation anticipate ready for discharge in a few days, needs to wean off oxygen (2) Pulmonary embolism: Plan: right upper lobe, segmental Lovenox BID initially change to Xarelto 15mg BID x 21 days then 20mg daily treat for 3-6 months (3) Paroxysmal SVT (supraventricular tachycardia): Plan: - Remained sinus rhythm on monitor predominantly - did have a run of SVT at rate of 160 on 02/15 - Continue Diltiazem 120 mg daily move to medical floor, stable for several days (4) KELLY (acute kidney injury): Plan: - RESOLVED - likely in setting of poor oral intake and medications - Holding Chlorthalidone, resume Losartan - Was gently hydrated on admission gave Lasix 20mg IV daily for two days, hold today (5) Diabetes mellitus, type 2: Plan: - A1c 8.3 - Will have to closely monitor in setting of steroids; labile sugars, hypoglycemia this morning - Glycemic management following - appreciate input (6) Hypertension: Plan: - BP up slightly, resume Losartan - Hold Chlorthalidone 25 mg daily - Labs in AM (7) Acid reflux disease: Plan: - Continue Protonix 40 mg daily (8) Hypercholesterolemia: Plan: - Continue Atorvastatin 20 mg daily (9) Severe obstructive sleep apnea: Plan: - Normally sleeps in recliner at home; cannot tolerate CPAP at home -- Can use here if she wishes Plan: hopeful she will be ready for discharge in 48-72 hours Admission and Anticipated Discharge Date Admission Date: February 14, 2021 Subjective patient very flat, lethargic, says she feels a little better willing to try Codeine for her cough, she will desaturate with coughing spells and takes a few minutes to recover she is eating okay but not great, no diarrhea she was up in the chair all day yesterday and the day before encouraged her to stay active, when in bed I want her to lay prone or on her side labs show K is 3.5, Cr 0.98, BUN 30, mag and phos normal Review of Systems Review of Systems: All systems reviewed & are unremarkable except as noted in Subjective Constitutional: + sweats, + fatigue and + weakness; no fever and no chills Respiratory: + cough, + dyspnea and + dyspnea on exertion Cardiovascular: no chest pain and no edema Physical Exam Physical Exam: General: well developed, well nourished, ill appearing, diaphoretic Neck: supple, trachea midline, normal thyroid Lungs: crackles in bases, normal respiratory effort, no accessory muscle use, no distress, + cough Heart: regular S1 and S2, no murmur, peripheral pulses normal, capillary refill normal, no edema Abdomen: soft, NT, ND, + BS, no hepatomegaly, normal to percussion Extremities: normal in appearance, no cyanosis, no petechiae, strength is 5/5 bilaterally Neuro: awake, cooperative, moves all extremities, no focal motor deficits, CN II-XII intact, sensation in extremities intact, normal speech Skin: warm, dry, no rash, normal turgor Psych: Awake, alert oriented x 3, flat affect Results & Data Results & Data ([facility]) Vital Signs (Past 12 Hours) Vital Signs Temp Pulse Resp BP Pulse Ox 02/19/21 09:35 37 C 72 18 128/76 93 02/19/21 05:20 96 Laboratory Results Laboratory Results - last 24 hr 02/18/21 02/18/21 02/19/21 17:55 21:28 07:08 Sodium 145 Potassium 3.5 Chloride 110 H Carbon Dioxide 30 Anion Gap 4.0 BUN 30 H Creatinine 0.98 Est Cr Clr Drug Dosing 72.4 Est GFR ( Amer) 71.2 Est GFR (Non-Af Amer) 61.4 BUN/Creatinine Ratio 30.7 H Glucose 105 H POC Glucose 225 H 196 H Calcium 8.6 Phosphorus 3.2 Magnesium 2.4 02/19/21 02/19/21 08:45 12:21 Sodium Potassium Chloride Carbon Dioxide Anion Gap BUN Creatinine Est Cr Clr Drug Dosing Est GFR ( Amer) Est GFR (Non-Af Amer) BUN/Creatinine Ratio Glucose POC Glucose 102 H 158 H Calcium Phosphorus Magnesium Medications Administered Current Inpatient Medications Acetaminophen (Acetaminophen 325 Mg Tab) 650 mg PO Q4H PRN PRN Reason: Pain or Fever Stop: 03/16/21 23:24 Last Admin: 02/17/21 09:17 Dose: 650 mg Documented by: Albuterol (Albuterol 0.083% Nebu Soln 3 Ml Vial) 2.5 mg NEB Q6R PRN PRN Reason: Shortness Of Breath Or Wheezing Stop: 03/16/21 00:59 Last Admin: 02/17/21 05:01 Dose: 2.5 mg Documented by: Atorvastatin Calcium (Atorvastatin 20 Mg Tab) 20 mg PO DAILY [facility] Stop: 03/17/21 08:59 Last Admin: 02/19/21 08:52 Dose: 20 mg Documented by: Benzonatate (Benzonatate 100 Mg Capsule) 100 mg PO Q8H PRN PRN Reason: Cough Stop: 03/17/21 20:37 Last Admin: 02/19/21 10:25 Dose: 100 mg Documented by: Cetirizine HCl (Cetirizine Hcl 10 Mg Tablet) 10 mg PO DAILY [facility] Stop: 03/17/21 08:59 Last Admin: 02/19/21 08:52 Dose: 10 mg Documented by: Cyanocobalamin (Cyanocobalamin 500 Mcg Tablet (Vitamin B-12)) 1,000 mcg PO QAM [facility] Stop: 03/17/21 08:59 Last Admin: 02/19/21 08:52 Dose: 1,000 mcg Documented by: Dextrose (Dextrose 50% 50 Ml Syringe) 25 - 50 ml IV UD PRN; Protocol PRN Reason: Hypoglycemia Protocol Stop: 03/16/21 23:24 Diltiazem HCl (Diltiazem Hcl 120 Mg Capcr) 120 mg PO DAILY [facility] Stop: 03/17/21 08:59 Last Admin: 02/19/21 08:52 Dose: 120 mg Documented by: Escitalopram Oxalate (Escitalopram Oxalate 10 Mg Tab) 15 mg PO DAILY [facility] Stop: 03/17/21 08:59 Last Admin: 02/19/21 08:52 Dose: 15 mg Documented by: Glucagon (Glucagon For Inj 1 Mg Vial) 1 mg SQ UD PRN; Protocol PRN Reason: Hypoglycemia Protocol Stop: 03/16/21 23:24 Glucose (Glucose 10 Tabs/Tube) 4 - 8 tabs PO UD PRN; Protocol PRN Reason: Hypoglycemia Protocol Stop: 03/16/21 23:24 Glucose (Glucose 40% Gel 15 Gm Tube) 15 - 30 gm PO UD PRN; Protocol PRN Reason: Hypoglycemia Protocol Stop: 03/16/21 23:24 Guaifenesin/Codeine Phosphate (Guaifenesin/Codeine 200mg/20mg 10ml Udc) 10 ml PO Q6H PRN PRN Reason: Cough Stop: 03/21/21 14:18 Dexamethasone 6 mg/ Syringe 1.5 mls @ 1 mls/min IV DAILY [facility] Stop: 02/25/21 08:59 Last Admin: 02/19/21 09:34 Dose: 1 mls/min Documented by: Levofloxacin/Dextrose (Levaquin/D5w) 750 mg in 150 mls @ 100 mls/hr IV Q24H [facility]; Protocol Stop: 02/24/21 08:59 Last Infusion: 02/19/21 12:00 Dose: Infused Documented by: Ibuprofen (Ibuprofen 600 Mg Tab) 600 mg PO Q6H PRN PRN Reason: Fever Stop: 03/19/21 08:33 Last Admin: 02/17/21 12:25 Dose: 600 mg Documented by: Insulin Aspart (Insulin Aspart 100 Units/Ml 3 Ml Pen) 0 units SC ACHS [facility]; Protocol Stop: 03/17/21 00:14 Last Admin: 02/19/21 12:39 Dose: 23 units Documented by: Insulin Glargine (Insulin Glargine Solostar 100 Units/Ml 3 Ml Pen) 15 units SC DAILY [facility]; Protocol Stop: 03/20/21 08:59 Last Admin: 02/19/21 09:04 Dose: 15 units Documented by: Insulin Glargine (Insulin Glargine Solostar 100 Units/Ml 3 Ml Pen) 30 units SC [facility]; Protocol Stop: 03/20/21 20:59 Last Admin: 02/18/21 21:33 Dose: 30 units Documented by: Insulin Human NPH (Insulin Human Nph) 35 units SC DAILY [facility] Stop: 03/19/21 08:59 Last Admin: 02/19/21 09:04 Dose: 35 units Documented by: Losartan Potassium (Losartan Potassium 50 Mg Tab) 50 mg PO QAM [facility] Stop: 03/21/21 08:59 Last Admin: 02/19/21 08:52 Dose: 50 mg Documented by: Miscellaneous (Carbohydrates For Hypoglycemia ) 15 - 30 gm PO UD PRN PRN Reason: Hypoglycemia Protocol Stop: 03/16/21 23:24 Last Admin: 02/17/21 03:52 Dose: 14 gm Documented by: Miscellaneous Information (Pharmacy Glycemic Mgmt Consult) 1 ea N/A UD PRN; Protocol PRN Reason: Consult Stop: 03/16/21 23:24 Ondansetron HCl (Ondansetron Inj 2 Mg/Ml 2 Ml Vial) 4 mg IV Q6H PRN PRN Reason: Nausea Stop: 03/16/21 23:24 Pantoprazole Sodium (Pantoprazole 40 Mg Tab) 40 mg PO DAILY [facility]; Protocol Stop: 03/17/21 08:59 Last Admin: 02/19/21 08:52 Dose: 40 mg Documented by: Potassium Chloride (Potassium Chloride Crtab 20 Meq Tabcr) 20 meq PO BID17 [facility] Stop: 03/19/21 10:29 Last Admin: 02/19/21 08:51 Dose: 20 meq Documented by: Rivaroxaban (Rivaroxaban 15 Mg Tab) 15 mg PO BIDM [facility] Stop: 03/12/21 20:59 Topiramate (Topiramate 50 Mg Tab) 50 mg PO BID [facility] Stop: 03/17/21 00:00 Last Admin: 02/19/21 08:51 Dose: 50 mg Documented by: PG Care Time/CCT Total # of Minutes Spent Total Time Spent with Patient: Total time spent is greater than 50% in coordination of care (as documented) at patient's floor/unit and/or counseling patient: Coding Level of Care Code 12769 Subseq Hosp Care Lvl 3 Diagnoses Pneumonia due to COVID-19 virus U07.1; J12.82 Pulmonary embolism I26.99 Paroxysmal SVT (supraventricular tachycardia) I47.1 KELLY (acute kidney injury) N17.9 Diabetes mellitus, type 2 E11.9 Hypertension I10 Acid reflux disease K21.9 Hypercholesterolemia E78.00 Severe obstructive sleep apnea G47.33
[2021-02-19] MEDS: RIVAROXABAN 15 MG TAB PO SCH (21:29)
[2021-02-20] MEDS: TOPIRAMATE 50 MG TAB PO SCH ×2 (08:55→20:16)
[2021-02-20] MEDS: RIVAROXABAN 15 MG TAB PO SCH ×2 (08:55→17:43)
[2021-02-20] MEDS: CYANOCOBALAMIN 500 MCG TABLET (VITAMIN B-12) PO SCH (08:55)
[2021-02-20] MEDS: dilTIAZem HCL 120 MG CAPCR PO SCH (08:56)
[2021-02-20] MEDS: PANTOprazole 40 MG TAB PO SCH (08:56)
[2021-02-20] MEDS: LOSARTAN POTASSIUM 50 MG TAB PO SCH (08:57)
[2021-02-20] MEDS: CETIRIZINE HCL 10 MG TABLET PO SCH (08:57)
[2021-02-20] MEDS: ATORVASTATIN 20 MG TAB PO SCH (08:57)
[2021-02-20] MEDS: ESCITALOPRAM OXALATE 10 MG TAB PO SCH (08:58)
[2021-02-20] MEDS: dexAMETHasone 6 MG in SYRINGE 0 ML IV SCH (09:02)
[2021-02-20] MEDS: POTASSIUM CHLORIDE CRTAB 20 MEQ TABCR PO SCH ×2 (09:02→17:47)
[2021-02-20] MEDS: levoFLOXacin/D5W 750 MG/150 ML BAG IV SCH (09:03)
[2021-02-20] MEDS: INSULIN GLARGINE SOLOSTAR 100 UNITS/ML 3 ML PEN SC SCH (09:06)
[2021-02-20] MEDS: INSULIN HUMAN NPH SC SCH (09:07)
[2021-02-20] MEDS: INSULIN ASPART 100 UNITS/ML 3 ML PEN SC SCH ×4 (09:11→20:46)
[2021-02-20] MEDS: BENZONATATE 100 MG CAPSULE PO PRN ×2 (10:39→20:16)
--- NOTE | 2021-02-20 12:53 | Pharmacy Report ---
Pharmacy Glycemic Short Note 2 - Date of Service February 20, 2021 - Glycemic Short BSG Results (Last 24 hours): 02/19/21 02/19/21 02/20/21 17:49 20:43 08:46 POC Glucose 235 H 213 H 84 OUTPATIENT ANTIDIABETIC REGIMEN: * Lantus 45 units qAM + Lantus 65 units qPM * Novolog 3/40/40 + SSI * HbA1C = 8.3% ASSESSMENT: 02/20/21: * BSG slightly below goal this morning (84mg/dL). * Lantus dose reduced beginning this evening. * Yesterday, BSGs trended up throughout the day (102 -> 158 -> 235 -> 213). * Novolog parameters were tightened slightly this morning to provide additional prandial coverage. * Patient continues to receive IV dexamethasone daily. Will plan to hold NPH if/when this is discontinued. 02/18 * Pt has received 121 units of insulin over the past 24hrs * 30 units of basal with Lantus * 35 units of NPH for steroid induced hyperglycemia * 56 units of bolus with NovoLog * BSGs [id number] mg/dl * BSGs rise throughout the day; Pt takes Lantus BID but it is only ordered 24hrs in house secondary to LOW BSGs. Will conservatively add AM Lantus back to regimen * Slightly tighten CR for steroid induced hyperglycemia 02/15/21: * Ms Vale is a 65 y/o F with a PMH of T2DM controlled with insulin who presents with COVID pneumonia. * BSG yesterday was 143 mg/dL. She received dexamethasone 6 mg x 1 then BSG was 215 mg/dL. * Patient was given home dose of 65 units. BSG overnight was 206 mg/dL. Patient received 15 units of Novolog overnight. * Fasting today was 174 mg/dL. * Give Lantus 25 units x 1 (for 15 units overnight plus 10 extra units to decrease fasting to around 150 mg/dL). Continue Lantus 65 units at bedtime. Have lower dose available in case BSGs trend down significantly. * NPH 40 units (0.4 units/kg) for steroid induced hyperglycemia. * Novolog scale based upon basal rate of ~ 90 units/day. PLAN FOR INPATIENT GLYCEMIC CONTROL: * Basal insulin * Lantus 15 units SQ AM + 20 units SQ PM * NPH 35 units SQ once daily - given with DXM * Bolus insulin: tighten CR * NovoLog per scale ACHS or Q6hrs while NPO * Goal Range: Low 110 mg/dL - High 140 mg/dL * Correction Factor: 10 mg/dL/unit * Nutritional / Prandial insulin per carb ratio of 1 unit per 2.5 grams CHO consumed PLAN FOR DISCHARGE: * HbA1C is slightly elevated above goal range for patient. Goal range is <8% while currently HbA1C is 8.3% * Recommend checking BSG at least once per day at varying times to establish blood sugar trends. * Then work with provider to tighten insulin. * May benefit from counseling regarding lifestyle modifications.
[2021-02-20] MEDS ORDERED: INSULIN GLARGINE SOLOSTAR 100 UNITS/ML 3 ML PEN SC SCH (21:00)
--- NOTE | 2021-02-20 22:47 | Hospitalist Progress Note ---
Date of Service February 20, 2021 Assessment & Plan (1) Pneumonia due to COVID-19 virus: Plan: 65yo C female with history of GERD, prior DVT presenting with Covid-19 pneumonia, hypoxic on admission. Improving. Presently on 3L of O2 by NC saturating 98%. Feels improved. Tc=36.7. Last true fever on 02/17/21 at 02:57 - 38.5 -Continue supplemental O2 as needed -Continue dexamethasone 6mg IV daily, Day 12/10 -Remdesivir per protocol, completed 5 days -Lasix 20mg IV on 02/18 and 02/17, held due to increased BUN. Will repeat labs in AM -Continue Levaquin, day 4/5 -Albuterol as needed -Tessalon as needed -Tylenol and Motrin as needed for fever -Incentive spirometry as needed -Codeine as needed for cough - coughing spells lead to desaturation anticipate ready for discharge in a few days, needs to wean off oxygen (2) Pulmonary embolism: Plan: Patient with prior DVT. CTA with PE in right upper lobe, segmental -Lovenox BID initially now change to Xarelto 15mg BID x 21 days then 20mg daily - Plan for treatment for 3-6 months (3) Paroxysmal SVT (supraventricular tachycardia): Plan: - Continue Diltiazem 120 mg daily (4) KELLY (acute kidney injury): Plan: - RESOLVED - likely in setting of poor oral intake and medications - Holding Chlorthalidone, resume Losartan - Was gently hydrated on admission and given Lasix 20mg IV daily for two days -Repeat chemistry in AM (5) Diabetes mellitus, type 2: Plan: Blood sugar mildly elevated at last check - 229 at 20:44. She had a lower reading this AM at 84. - A1c 8.3 - Labile blood sugars with hypoglycemia yesterday AM. Will have to closely monitor in setting of steroids - Glycemic management following - appreciate input -Carbohydrate consistent diet as tolerated (6) Hypertension: Plan: BP presently 116/69, appropriately controlled throughout the day - Continue Losartan - Hold Chlorthalidone 25 mg daily - Labs in AM (7) Acid reflux disease: Plan: - Continue Protonix 40 mg daily (8) Hypercholesterolemia: Plan: - Continue Atorvastatin 20 mg daily (9) Severe obstructive sleep apnea: Plan: - Normally sleeps in recliner at home; cannot tolerate CPAP at home -- Can use here if she wishes Plan: hopeful she will be ready for discharge in 1-2 days Admission and Anticipated Discharge Date Admission Date: February 14, 2021 Subjective Patient seen at bedside. She overall is feeling well. No new complaints. She reports spending a large amount of time today in her chair. She was also able to get up and clean herself up. She is feeling improved, less shortness of breath and less coughing. No additional complaints at this time. Review of Systems Review of Systems: All systems reviewed & are unremarkable except as noted in HPI & below Physical Exam Physical Exam: General: patient resting comfortably, NAD, non-toxic in appearance, answering questions appropriately Skin: warm, dry, intact, no rashes or lesions HEENT: NC/AT, PERRL, EOMI, anicteric sclera, conjunctiva without injection, external ear normal to inspection and nontender, nares patent, moist mucus membranes, dentition intact, no oropharyngeal lesions, neck supple, trachea midline, no LAD, no thyromegaly, no JVD Heart: +S1/S2, regular, no m/r/g Lungs: equal air entry bilaterally, no rales/rhonchi/wheezes, continuous pulse oximetry with 98% on 3L NC Abd: +BS, soft, NT/ND, no masses/organomegaly/ascites Ext: warm, 2+ pulses in UE/LE bilaterally, no clubbing/cyanosis or edema Neuro: nonfocal,moving all extremities on command with equal strength 5/5 Results & Data Results & Data ([facility]) Vital Signs (Past 12 Hours) Vital Signs Height Weight Body Mass Index Blood Pressure Blood Pressure Position Temperature Temperature Source 5 ft 5 in 109.7 kg 41.1 116/69 Sitting 36.7 C Oral 02/14/21 23:40 02/18/21 05:06 02/14/21 23:40 02/20/21 09:15 02/20/21 09:15 02/20/21 09:15 02/20/21 09:15 Pulse Rate Respiratory Rate Pulse Oximetry Oxygen Flow Rate 72 16 95 3 02/20/21 09:15 02/20/21 09:15 02/20/21 09:15 02/20/21 09:15 Laboratory Results Laboratory Results WBC 5.34 K/uL (4.8-10.8) 02/16/21 05:34 RBC 4.74 M/uL (4.2-5.4) 02/16/21 05:34 Hgb 11.7 g/dL (12.0-16.0) L 02/16/21 05:34 Hct 37.2 % (37-47) 02/16/21 05:34 MCV 78.5 fL (80-100) L 02/16/21 05:34 MCH 24.7 pg (25-34) L 02/16/21 05:34 MCHC 31.5 g/dL (32-36) L 02/16/21 05:34 RDW Std Deviation 47.7 fL (36.4-46.3) H 02/16/21 05:34 RDW Coeff of Yoandy 16.5 % (11.5-14.5) H 02/16/21 05:34 Plt Count 263 K/uL (130-400) 02/16/21 05:34 MPV 9.6 fL (7.4-10.4) 02/16/21 05:34 Immature Gran % (Auto) 0.6 % 02/14/21 15:16 Neut % (Auto) 71.4 % 02/14/21 15:16 Lymph % (Auto) 23.6 % 02/14/21 15:16 [place] % (Auto) 4.2 % 02/14/21 15:16 Eos % (Auto) 0.0 % 02/14/21 15:16 Baso % (Auto) 0.2 % 02/14/21 15:16 Neut # (Auto) 3.70 K/uL (1.4-6.5) 02/14/21 15:16 Lymph # (Auto) 1.22 K/uL (1.2-3.4) 02/14/21 15:16 [place] # (Auto) 0.22 K/uL (0.11-0.59) 02/14/21 15:16 Eos # (Auto) 0.00 K/uL (0-0.5) 02/14/21 15:16 Baso # (Auto) 0.01 K/uL (0-0.2) 02/14/21 15:16 Immature Gran # (Auto) 0.03 K/uL (0.00-0.02) H 02/14/21 15:16 Polychromasia 1+ 02/14/21 15:16 Poikilocytosis Present 02/14/21 15:16 D-Dimer 660 ug/L FEU (0-500) H* 02/14/21 15:16 Sodium 145 mmol/L (136-145) 02/19/21 07:08 Potassium 3.5 mmol/L (3.5-5.1) 02/19/21 07:08 Chloride 110 mmol/L (98-107) H 02/19/21 07:08 Carbon Dioxide 30 mmol/L (21-32) 02/19/21 07:08 Anion Gap 4.0 (3-11) 02/19/21 07:08 BUN 30 mg/dl (7-18) H 02/19/21 07:08 Creatinine 0.98 mg/dl (0.6-1.2) 02/19/21 07:08 Est Cr Clr Drug Dosing 72.4 ml/min 02/19/21 07:08 Est GFR ( Amer) 71.2 ml/min 02/19/21 07:08 Est GFR (Non-Af Amer) 61.4 ml/min 02/19/21 07:08 BUN/Creatinine Ratio 30.7 (10-20) H 02/19/21 07:08 Glucose 105 mg/dl (70-99) H 02/19/21 07:08 POC Glucose 229 mg/dl (70-99) H 02/20/21 20:44 Estimat Average Glucose 192 mg/dl 02/15/21 07:04 Hemoglobin A1c 8.3 % (4.5-5.6) H 02/15/21 07:04 Calcium 8.6 mg/dl (8.5-10.1) 02/19/21 07:08 Phosphorus 3.2 mg/dl (2.5-4.9) 02/19/21 07:08 Magnesium 2.4 mg/dl (1.8-2.4) 02/19/21 07:08 Total Bilirubin 0.3 mg/dl (0.2-1) 02/16/21 05:34 AST 47 U/L (15-37) H 02/16/21 05:34 ALT 33 U/L (12-78) 02/16/21 05:34 Alkaline Phosphatase 77 U/L (45-117) 02/16/21 05:34 Troponin I < 0.015 ng/ml (0-0.045) 02/14/21 15:16 C-Reactive Protein 10.40 mg/dl (0-0.29) H 02/16/21 05:34 Total Protein 7.8 gm/dl (6.4-8.2) 02/16/21 05:34 Albumin 3.0 gm/dl (3.4-5.0) L 02/16/21 05:34 Globulin 4.8 gm/dl (2.5-4.0) H 02/16/21 05:34 Albumin/Globulin Ratio 0.6 (0.9-2) L 02/16/21 05:34 Procalcitonin 0.17 ng/ml (0-0.5) 02/14/21 15:16 Urine Color Yellow 02/16/21 15:30 Urine Appearance Clear (Clear) 02/16/21 15:30 Urine pH 5.5 (4.5-7.5) 02/16/21 15:30 Ur Specific [place] 1.037 (1.000-1.030) H 02/16/21 15:30 Urine Protein 2+ (Negative) H 02/16/21 15:30 Urine Glucose (UA) Negative (Negative) 02/16/21 15:30 Urine Ketones Negative (Negative) 02/16/21 15:30 Urine Blood Trace (Negative) H 02/16/21 15:30 Urine Nitrite Negative (Negative) 02/16/21 15:30 Urine Bilirubin Negative (Negative) 02/16/21 15:30 Urine Urobilinogen Negative (Negative) 02/16/21 15:30 Ur Leukocyte Esterase Negative (Negative) 02/16/21 15:30 Urine WBC (Auto) 1-5 /hpf (0-5) 02/16/21 15:30 Urine RBC (Auto) 0-4 /hpf (0-4) 02/16/21 15:30 U Hyaline Cast (Auto) 1-5 /lpf (0-5) 02/16/21 15:30 U Epithel Cells (Auto) >30 /lpf (0-5) H 02/16/21 15:30 Urine Bacteria (Auto) Negative (Negative) 02/16/21 15:30 Urine Yeast Not Reportable 02/16/21 15:30 Nasal Screen MRSA (PCR) Negative (Negative) 02/16/21 06:08 COVID-19 Eval Order Covid19 at [facility] 02/14/21 15:17 SARS-CoV-2 (PCR) POSITIVE (Negative) A* 02/14/21 15:17 Impressions Chest X-Ray 02/14/21 15:37 XR chest 1V portable CLINICAL HISTORY: cough, sob, covid sxs COMPARISON STUDY: December 08, 2018 FINDINGS: No pneumothorax. Mild blunting of the left costophrenic angle which could represent trace left pleural effusion. Multiple mixed reticular and airspace opacities are seen within bilateral lower lungs and more prominent on the left. Evaluation is slightly limited due to overlying pannus and patient body habitus. Cardiomediastinal silhouette is within upper limits of normal and partially obscured by surrounding opacities. Vasculature is indistinct.. Degenerative changes of the spine. IMPRESSION: 1. Bilateral mixed reticular and airspace opacities, more prominent within left mid to lower lung and possible associated with minimal left pleural effusion. 2. Mildly enlarged cardiac silhouette. 3. Limited exam due to patient body habitus and overlying pannus ACT 112: Negative or not required by law. The above report was generated using voice recognition software. It may contain grammatical, syntax or spelling errors. Electronically signed by: Lottie Roche DO 02/14/2021 4:31 PM Chest CTA 02/15/21 12:21 CT angio chest PE protocol CT DOSE: 794.88 mGy.cm HISTORY: 65 years-old Female with R/O PE; Has COVID. Acute shortness of breath. COVID Positive. TECHNIQUE: Multiple CTA images of the chest were obtained after the intravenous administration of Optiray. Coronal and sagittal MIPS were obtained from the axial data set and were submitted for review. All measurements were obtained according to NASCET criteria. A dose lowering technique was utilized adhering to the principles of ALARA. COMPARISON: Chest radiograph 02/14/2021, CTA chest 08/11/2014 FINDINGS: CTA: The heart is mildly enlarged. No pericardial effusion. Mild coronary artery calcifications. No thoracic aortic aneurysm. Mild ectasia of the thoracic aorta measures up to 3.9 cm. Four-vessel morphology of the thoracic aortic arch. Mild descending thoracic tortuosity. The main pulmonary artery is dilated measuring up to 3.7 cm. Suboptimal evaluation of the pulmonary arterial tree secondary to contrast bolus timing and respiratory motion artifact. A segmental pulmonary embolus is noted within the right upper lobe on image [address] CHEST: Unremarkable thyroid. Mildly enlarged 1.2 cm right hilar lymph node on image 166. Additionally, there are a few prominent mediastinal and left hilar lymph nodes which are likely reactive. Trace pleural effusions. No pneumothorax. Patchy multisegmental multilobar bilateral distribution of intermixed groundglass and consolidative opacities. Respiratory motion artifact limits evaluation of the lung parenchyma. The central airways appear patent. The liver appears enlarged with findings suggestive of hepatic steatosis. Unremarkable soft tissues. There is no acute fracture. Degenerative changes of the shoulders and spine. IMPRESSION: 1. Nonocclusive pulmonary embolus involves a segmental branch of the right upper lobe. This finding was called/faxed to the nursing unit at time of dictation. 2. Bilateral multilobar intermixed groundglass and consolidative opacities are compatible with multifocal pneumonia with likely viral etiology. 3. Mild reactive hilar and mediastinal adenopathy. ACT 112: Negative or not required by law. The above report was generated using voice recognition software. It may contain grammatical, syntax or spelling errors. Electronically signed by: Leo Phillips M.D. 02/16/2021 7:49 AM PG Care Time/CCT Total # of Minutes Spent Total Time Spent with Patient: Total time spent is greater than 50% in coordination of care (as documented) at patient's floor/unit and/or counseling patient: Coding Level of Care Code 32811 Subseq Hosp Care Lvl 3 Diagnoses Pneumonia due to COVID-19 virus U07.1; J12.82 Pulmonary embolism I26.99 Paroxysmal SVT (supraventricular tachycardia) I47.1 KELLY (acute kidney injury) N17.9 Diabetes mellitus, type 2 E11.9 Hypertension I10 Acid reflux disease K21.9 Hypercholesterolemia E78.00 Severe obstructive sleep apnea G47.33
[2021-02-21 07:14] LABS: Basophils # (auto) 0.01 K/uL (0-0.2); Basophils % (auto) 0.2 %; Eosinophils # (auto) 0.06 K/uL (0-0.5); Hematocrit (blood only) 36.3 % (37-47); Hemoglobin 11.2 g/dL (12.0-16.0); Immature Granulocytes # (auto) 0.13 K/uL (0.00-0.02); Immature Granulocytes % (auto) 2.2 %; Lymphocytes # (auto) 1.55 K/uL (1.2-3.4); Lymphocytes % (auto) 26.8 %; Mean Corpuscular Hemoglobin 24.3 pg (25-34); Mean Corpuscular Hgb Conc 30.9 g/dL (32-36); Mean Corpuscular Volume 78.7 fL (80-100); Mean Platelet Volume 8.9 fL (7.4-10.4); Monocytes % (auto) 13.8 %; Neutrophils # (auto) 3.24 K/uL (1.4-6.5); Platelet Count 425 K/uL (130-400); RDW Coefficient of Variation 16.7 % (11.5-14.5); Red Blood Count 4.61 M/uL (4.2-5.4); White Blood Count 5.79 K/uL (4.8-10.8)
[2021-02-21 07:39] LABS: Alanine Aminotransferase 36 U/L (12-78); Albumin Level 2.7 gm/dl (3.4-5.0); Aspartate Aminotransferase 23 U/L (15-37); BUN Creatinine Ratio 25.5 (10-20); Bilirubin Direct < 0.1 mg/dl (0-0.2); Blood Urea Nitrogen 21 mg/dl (7-18); Calcium 8.8 mg/dl (8.5-10.1); Carbon Dioxide 29 mmol/L (21-32); Chloride 110 mmol/L (98-107); Creatinine Clr Calc Pharmacy 85.5 ml/min; Glucose 77 mg/dl (70-99); Magnesium 2.1 mg/dl (1.8-2.4); Potassium 3.7 mmol/L (3.5-5.1); Sodium 143 mmol/L (136-145)
[2021-02-21 07:42] LABS: Alkaline Phosphatase 64 U/L (45-117); Bilirubin,Total 0.3 mg/dl (0.2-1); Total Protein 6.9 gm/dl (6.4-8.2)
[2021-02-21] MEDS: RIVAROXABAN 15 MG TAB PO SCH ×2 (08:24→17:44)
[2021-02-21] MEDS: ATORVASTATIN 20 MG TAB PO SCH (08:25)
[2021-02-21] MEDS: CETIRIZINE HCL 10 MG TABLET PO SCH (08:26)
[2021-02-21] MEDS: CYANOCOBALAMIN 500 MCG TABLET (VITAMIN B-12) PO SCH (08:26)
[2021-02-21] MEDS: dilTIAZem HCL 120 MG CAPCR PO SCH (08:27)
[2021-02-21] MEDS: dexAMETHasone 6 MG in SYRINGE 0 ML IV SCH (08:27)
[2021-02-21] MEDS: ESCITALOPRAM OXALATE 10 MG TAB PO SCH (08:28)
[2021-02-21] MEDS: LOSARTAN POTASSIUM 50 MG TAB PO SCH (08:31)
[2021-02-21] MEDS: PANTOprazole 40 MG TAB PO SCH (08:32)
[2021-02-21] MEDS: POTASSIUM CHLORIDE CRTAB 20 MEQ TABCR PO SCH ×2 (08:32→17:41)
[2021-02-21] MEDS: TOPIRAMATE 50 MG TAB PO SCH ×2 (08:32→21:04)
[2021-02-21] MEDS: BENZONATATE 100 MG CAPSULE PO PRN ×2 (08:34→21:12)
[2021-02-21] MEDS: INSULIN GLARGINE SOLOSTAR 100 UNITS/ML 3 ML PEN SC SCH (08:40)
[2021-02-21] MEDS: INSULIN ASPART 100 UNITS/ML 3 ML PEN SC SCH ×3 (08:42→17:40)
[2021-02-21] MEDS: INSULIN HUMAN NPH SC SCH (08:44)
[2021-02-21] MEDS: levoFLOXacin/D5W 750 MG/150 ML BAG IV SCH (08:48)
--- NOTE | 2021-02-21 11:14 | Pharmacy Report ---
Pharmacy Glycemic Short Note 2 - Date of Service February 21, 2021 - Glycemic Short BSG Results (Last 24 hours): 02/20/21 02/20/21 02/20/21 12:30 17:37 20:44 Glucose POC Glucose 129 H 240 H 229 H 02/21/21 02/21/21 07:02 07:58 Glucose 77 POC Glucose 75 OUTPATIENT ANTIDIABETIC REGIMEN: * Lantus 45 units qAM + Lantus 65 units qPM * Novolog / + SSI * HbA1C = 8.3% ASSESSMENT: 02/21/21 * Patient's BSGs yesterday were [phone] mg/dL. Fasting today is 75 mg/dL. * Patient received 140 units of insulin yesterday with 70 units of basal (35 units of NPH and 35 units of Lantus) plus 70 units of bolus. * Due to fasting continuing to trend down even with 20% reduction yesterday, will reduce Lantus by 50% to 15 units daily. Can add more tomorrow if this is not sufficient. Would like to see fasting trend above 80 mg/dL tomorrow. * Lower fasting may be due to overcorrection at bedtime as well so will loosen CF at bedtime. * BSGs trend up significantly Increase NPH by 20% to 45 units daily. Tighten CR. 02/20/21: * BSG slightly below goal this morning (84mg/dL). * Lantus dose reduced beginning this evening. * Yesterday, BSGs trended up throughout the day (102 -> 158 -> 235 -> 213). * Novolog parameters were tightened slightly this morning to provide additional prandial coverage. * Patient continues to receive IV dexamethasone daily. Will plan to hold NPH if/when this is discontinued. 02/18 * Pt has received 121 units of insulin over the past 24hrs * 30 units of basal with Lantus * 35 units of NPH for steroid induced hyperglycemia * 56 units of bolus with NovoLog * BSGs [phone] mg/dl * BSGs rise throughout the day; Pt takes Lantus BID but it is only ordered 24hrs in house secondary to LOW BSGs. Will conservatively add AM Lantus back to regimen * Slightly tighten CR for steroid induced hyperglycemia 02/15/21: * Ms Vale is a 65 y/o F with a PMH of T2DM controlled with insulin who presents with COVID pneumonia. * BSG yesterday was 143 mg/dL. She received dexamethasone 6 mg x 1 then BSG was 215 mg/dL. * Patient was given home dose of 65 units. BSG overnight was 206 mg/dL. Patient received 15 units of Novolog overnight. * Fasting today was 174 mg/dL. * Give Lantus 25 units x 1 (for 15 units overnight plus 10 extra units to decrease fasting to around 150 mg/dL). Continue Lantus 65 units at bedtime. Have lower dose available in case BSGs trend down significantly. * NPH 40 units (0.4 units/kg) for steroid induced hyperglycemia. * Novolog scale based upon basal rate of ~ 90 units/day. PLAN FOR INPATIENT GLYCEMIC CONTROL: * Basal insulin * Lantus 15 units SQ AM * NPH 45 units SQ once daily - given with DXM * Bolus insulin: tighten CR * NovoLog per scale ACHS or Q6hrs while NPO * Goal Range: Low 110 mg/dL - High 140 mg/dL * Correction Factor: 10 mg/dL/unit * Nutritional / Prandial insulin per carb ratio of 1 unit per 2 grams CHO consumed PLAN FOR DISCHARGE: * HbA1C is slightly elevated above goal range for patient. Goal range is <8% while currently HbA1C is 8.3% * Recommend checking BSG at least once per day at varying times to establish blood sugar trends. * Then work with provider to tighten insulin. * May benefit from counseling regarding lifestyle modifications.
[2021-02-21] MEDS ORDERED: INSULIN ASPART 100 UNITS/ML 3 ML PEN SC SCH (21:00)
[2021-02-21] MEDS: APIXABAN 2.5 MG TAB PO SCH (21:04)
--- NOTE | 2021-02-21 21:09 | Hospitalist Progress Note ---
Date of Service February 21, 2021 Assessment & Plan (1) Pneumonia due to COVID-19 virus: Plan: IMPROVED. Cont to wean NC O2 off but suspect she may need such with activity at discharge. Continue dexamethasone 6mg IV daily, Day 01/10. s/p Remdesivir x 5 days earlier this stay. s/p diuresis earlier this stay - now off diuretics. s/p 5 day course of Levaquin - stop abx today. Formal 2-step tomorrow. Cont pulmonary toilet. She is about 14-15 days into her illness. COVID-19 illness complicated by PE - see below. (2) Pulmonary embolism: Plan: Patient with prior LE DVT. CTA with PE in right upper lobe, segmental. Was initially on Lovenox BID then changed to Xarelto 15mg BID. Unfortunately it appears xarelto & diltiazem interact. Thus, d/c xarelto, change to eliquis 10mg BID x 1 week, then 5mg BID thereafter. Check dopplers of LEs - r/o DVT. She may need lifelong anticoagulation given that this is her 2nd VTE event in her lifetime and she has family h/o VTE (suggesting genetic trait/con dition/hypercoagulability). (3) Paroxysmal SVT (supraventricular tachycardia): Plan: continue Diltiazem 120 mg daily (4) KELLY (acute kidney injury): Plan: Peak Cr 2 Now - Cr 0.8 resolved (5) Diabetes mellitus, type 2: Plan: HbA1c 8.3% Pharmacy managing - appreciate their assistance Cont basal-bolus insulin (6) Hypertension: Plan: Continuing all home meds except diuretic Follow BPs (7) Acid reflux disease: Plan: Continue Protonix 40 mg daily (8) Hypercholesterolemia: Plan: Continue Atorvastatin 20 mg daily Had mild transaminitis earlier in the stay - likely 2nd COVID- now resolved (9) Severe obstructive sleep apnea: Plan: cannot tolerate CPAP unfortunately - does not use would benefit, at minimum, from NC O2 at night-time (10) Microcytic anemia: Plan: check Fe studies in am (11) Morbid obesity with BMI of 40.0-44.9, adult: Plan: BMI 40 Plan: anticipate d/c home tomorrow 2-step tomorrow Admission and Anticipated Discharge Date Admission Date: February 14, 2021 Subjective no events overnight pt states she overall feels much better eating is much improved more energy/less fatigue still with cough, but denies significant dyspnea at rest or with exertion o2 requirement down to 1 L during my visit I stopped the NC O2 sats remained 90% or greater at rest with activity dropped to 87% in room air pt reports severe AMIRA but cannot tolerate CPAP has had DVT in the past mother also had DVT in the past Review of Systems Review of Systems: gen - no fevers, no chills ENT - no loss of taste/smell CV - no chest pain pulm - no sputum GI - no diarrhea Physical Exam Physical Exam: gen - sitting in chair, looks good, occasional cough, NAD mouth - MMM, no obvious thrush heart - RRR, s1 s2, no murmur lungs - mild bibasilar fine rales; no wheeze; no increased WOB abd - soft, obese, NT, BS+ ext - no edema, pulses 2+ b/l Results & Data Results & Data ([facility]) Vital Signs (Past 12 Hours) Vital Signs Temp Pulse Resp BP Pulse Ox 02/21/21 17:43 94 02/21/21 16:13 37.0 C 77 18 112/72 96 02/21/21 12:56 95 Laboratory Results Laboratory Results - last 24 hr 02/21/21 02/21/21 02/21/21 07:02 07:02 07:58 WBC 5.79 RBC 4.61 Hgb 11.2 L Hct 36.3 L MCV 78.7 L MCH 24.3 L MCHC 30.9 L RDW Std Deviation 48.0 H RDW Coeff of Yoandy 16.7 H Plt Count 425 H MPV 8.9 Immature Gran % (Auto) 2.2 Neut % (Auto) 56.0 Lymph % (Auto) 26.8 [place] % (Auto) 13.8 Eos % (Auto) 1.0 Baso % (Auto) 0.2 Neut # (Auto) 3.24 Lymph # (Auto) 1.55 [place] # (Auto) 0.80 H Eos # (Auto) 0.06 Baso # (Auto) 0.01 Immature Gran # (Auto) 0.13 H Sodium 143 Potassium 3.7 Chloride 110 H Carbon Dioxide 29 Anion Gap 4.0 BUN 21 H Creatinine 0.83 Est Cr Clr Drug Dosing 85.5 Est GFR ( Amer) 87.0 Est GFR (Non-Af Amer) 75.0 BUN/Creatinine Ratio 25.5 H Glucose 77 POC Glucose 75 Calcium 8.8 Magnesium 2.1 Total Bilirubin 0.3 Direct Bilirubin < 0.1 AST 23 ALT 36 Alkaline Phosphatase 64 Total Protein 6.9 Albumin 2.7 L 02/21/21 02/21/21 12:07 17:25 WBC RBC Hgb Hct MCV MCH MCHC RDW Std Deviation RDW Coeff of Yoandy Plt Count MPV Immature Gran % (Auto) Neut % (Auto) Lymph % (Auto) [place] % (Auto) Eos % (Auto) Baso % (Auto) Neut # (Auto) Lymph # (Auto) [place] # (Auto) Eos # (Auto) Baso # (Auto) Immature Gran # (Auto) Sodium Potassium Chloride Carbon Dioxide Anion Gap BUN Creatinine Est Cr Clr Drug Dosing Est GFR ( Amer) Est GFR (Non-Af Amer) BUN/Creatinine Ratio Glucose POC Glucose 107 H 214 H Calcium Magnesium Total Bilirubin Direct Bilirubin AST ALT Alkaline Phosphatase Total Protein Albumin PG Care Time/CCT Total # of Minutes Spent Total Time Spent with Patient: Total time spent is greater than 50% in coordination of care (as documented) at patient's floor/unit and/or counseling patient: Coding Level of Care Code 10737 Subseq Hosp Care Lvl 3 Diagnoses Pneumonia due to COVID-19 virus U07.1; J12.82 Pulmonary embolism I26.99 Paroxysmal SVT (supraventricular tachycardia) I47.1 KELLY (acute kidney injury) N17.9 Diabetes mellitus, type 2 E11.9 Hypertension I10 Acid reflux disease K21.9 Hypercholesterolemia E78.00 Severe obstructive sleep apnea G47.33 Microcytic anemia D50.9 Morbid obesity with BMI of 40.0-44.9, adult E66.01; Z68.41
[2021-02-21 23:02] VITALS: BP 114/64; TEMP 98.8
--- NOTE | 2021-02-22 08:10 | Ultrasound Report ---
BILATERAL LOWER EXTREMITY VENOUS DOPPLER HISTORY: Pulmonary emboli PE; eval for DVT COMPARISON STUDY: Doppler study 01/29/2015 FINDINGS: There is normal compressibility, flow, and augmentation within the right lower extremity de ep venous structures. Partially occlusive thrombus is noted within the proximal to mid posterior tibi al vein. No additional left lower extremity deep venous thrombus. IMPRESSION: 1. Partially occlusive thrombus of the left posterior tibial vein. 2. No sonographic evidence of right lower extremity DVT. ACT 112: Negative or not required by law. Electronically signed by: Leo Phillips M.D. 02/22/2021 8:09 AM
[2021-02-22 08:37] LABS: BUN Creatinine Ratio 24.6 (10-20); Calcium 8.8 mg/dl (8.5-10.1); Creatinine Clr Calc Pharmacy 79.7 ml/min; Est GFR (African American) 79.9 ml/min
[2021-02-22] MEDS: TOPIRAMATE 50 MG TAB PO SCH (08:45)
[2021-02-22] MEDS: APIXABAN 2.5 MG TAB PO SCH (08:46)
[2021-02-22] MEDS: dexAMETHasone 6 MG in SYRINGE 0 ML IV SCH (08:51)
[2021-02-22 08:54] LABS: Ferritin 156.5 ng/ml (8-388)
[2021-02-22] MEDS: dilTIAZem HCL 120 MG CAPCR PO SCH (08:54)
[2021-02-22] MEDS: ESCITALOPRAM OXALATE 10 MG TAB PO SCH (08:54)
[2021-02-22] MEDS: ATORVASTATIN 20 MG TAB PO SCH (08:54)
[2021-02-22] MEDS: CYANOCOBALAMIN 500 MCG TABLET (VITAMIN B-12) PO SCH (08:55)
[2021-02-22] MEDS: CETIRIZINE HCL 10 MG TABLET PO SCH (08:55)
[2021-02-22] MEDS: LOSARTAN POTASSIUM 50 MG TAB PO SCH (08:56)
[2021-02-22] MEDS: POTASSIUM CHLORIDE CRTAB 20 MEQ TABCR PO SCH (08:56)
[2021-02-22] MEDS: PANTOprazole 40 MG TAB PO SCH (08:56)
[2021-02-22] MEDS: INSULIN ASPART 100 UNITS/ML 3 ML PEN SC SCH ×2 (09:33→13:09)
[2021-02-22] MEDS: INSULIN GLARGINE SOLOSTAR 100 UNITS/ML 3 ML PEN SC SCH (09:35)
[2021-02-22] MEDS: INSULIN HUMAN NPH SC SCH (09:35)
[2021-02-22] MEDS ORDERED: levoFLOXacin 750 MG TAB PO SCH (11:00)
[2021-02-22 13:14] VITALS: PULSE 66; O2SAT 97
--- NOTE | 2021-02-22 14:15 | Discharge Summary ---
Date of Service date of admission - February 14, 2021 date of discharge - February 22, 2021 Admission HPI Per Admitting Provider This is a 65-year-old female past medical history of hypertension, type 2 diabetes mellitus, PSVT that presents today complaining of cough and shortness of breath. Her mother is in the room who is also experiencing similar symptoms and is also to be admitted. Patient tells me that several generations live in her house. This includes her son and his daughter, which is the patient's granddaughter. Approximately 2 weeks ago, the granddaughter was sent home from school after being exposed to another child at school that had tested positive for Covid. Last week, the granddaughter, who is 11 years old, started to show some mild URI symptoms and was taken by her father to be tested which was positive. Although the child is doing well, about 1 week ago the patient started experiencing similar symptoms. This started with a low-grade fever and some generalized fatigue. Unfortunately, this progressed to shortness of breath and a loose but nonpro ductive cough. Patient had significant dyspnea on exertion. She also noted that she lost her sense of taste and smell. She tried to write out the symptoms but they continue to worsen until she became very short of breath with minimal activity. This is what prompted her to come to the emergency room today. In the ER, she was found to have a room air O2 sat of 85%. She is doing much better on nasal cannula oxygen with a sat of 93%. She is febrile. She is very weak appearing and coughs throughout the interview. She does admit to me that she was not vaccinated. Patient is now being admitted with her mother to [facility] secondary to Covid pneumonia. Principal Diagnosis 1. acute hypoxic respiratory failure 2nd to COVID-19 pneumonia 2. pulmonary embolus 3. LLE DVT Discharge Exam gen - sitting in chair, looks great today mouth - MMM, no obvious thrush heart - RRR, s1 s2, no murmur lungs - mild bibasilar fine rales; no wheeze; no increased WOB abd - soft, obese, NT, BS+ ext - no edema, pulses 2+ b/l Discharge Data Allergies Allergy/AdvReac Type Severity Reaction Status Date / Time Penicillins Allergy Intermediate HIVES Verified 02/14/21 09:55 Sulfa (Sulfonamide Allergy Intermediate HIVES Verified 02/14/21 09:55 Antibiotics) Procedures Performed 2-step ambulatory oxygen test - no need for supplemental oxygen at home Ordered Studies Chest X-Ray 02/14/21 15:37 XR chest 1V portable CLINICAL HISTORY: cough, sob, covid sxs COMPARISON STUDY: December 08, 2018 FINDINGS: No pneumothorax. Mild blunting of the left costophrenic angle which could represent trace left pleural effusion. Multiple mixed reticular and airspace opacities are seen within bilateral lower lungs and more prominent on the left. Evaluation is slightly limited due to overlying pannus and patient body habitus. Cardiomediastinal silhouette is within upper limits of normal and partially obscured by surrounding opacities. Vasculature is indistinct.. Degenerative changes of the spine. IMPRESSION: 1. Bilateral mixed reticular and airspace opacities, more prominent within left mid to lower lung and possible associated with minimal left pleural effusion. 2. Mildly enlarged cardiac silhouette. 3. Limited exam due to patient body habitus and overlying pannus ACT 112: Negative or not required by law. The above report was generated using voice recognition software. It may contain grammatical, syntax or spelling errors. Electronically signed by: Lottie Roche DO 02/14/2021 4:31 PM Chest CTA 02/15/21 12:21 CT angio chest PE protocol CT DOSE: 794.88 mGy.cm HISTORY: 65 years-old Female with R/O PE; Has COVID. Acute shortness of breath. COVID Positive. TECHNIQUE: Multiple CTA images of the chest were obtained after the intravenous administration of Optiray. Coronal and sagittal MIPS were obtained from the axial data set and were submitted for review. All measurements were obtained according to NASCET criteria. A dose lowering technique was utilized adhering to the principles of ALARA. COMPARISON: Chest radiograph 02/14/2021, CTA chest 08/11/2014 FINDINGS: CTA: The heart is mildly enlarged. No pericardial effusion. Mild coronary artery calcifications. No thoracic aortic aneurysm. Mild ectasia of the thoracic aorta measures up to 3.9 cm. Four-vessel morphology of the thoracic aortic arch. Mild descending thoracic tortuosity. The main pulmonary artery is dilated measuring up to 3.7 cm. Suboptimal evaluation of the pulmonary arterial tree secondary to contrast bolus timing and respiratory motion artifact. A segmental pulmonary embolus is noted within the right upper lobe on image [address] CHEST: Unremarkable thyroid. Mildly enlarged 1.2 cm right hilar lymph node on image 166. Additionally, there are a few prominent mediastinal and left hilar lymph nodes which are likely reactive. Trace pleural effusions. No pneumothorax. Patchy multisegmental multilobar bilateral distribution of intermixed groundglass and consolidative opacities. Respiratory motion artifact limits evaluation of the lung parenchyma. The central airways appear patent. The liver appears enlarged with findings suggestive of hepatic steatosis. Unremarkable soft tissues. There is no acute fracture. Degenerative changes of the shoulders and spine. IMPRESSION: 1. Nonocclusive pulmonary embolus involves a segmental branch of the right upper lobe. This finding was called/faxed to the nursing unit at time of dictation. 2. Bilateral multilobar intermixed groundglass and consolidative opacities are compatible with multifocal pneumonia with likely viral etiology. 3. Mild reactive hilar and mediastinal adenopathy. ACT 112: Negative or not required by law. The above report was generated using voice recognition software. It may contain grammatical, syntax or spelling errors. Electronically signed by: Leo Phillips M.D. 02/16/2021 7:49 AM Venous Doppler Study 02/21/21 17:35 BILATERAL LOWER EXTREMITY VENOUS DOPPLER HISTORY: Pulmonary emboli PE; eval for DVT COMPARISON STUDY: Doppler study 01/29/2015 FINDINGS: There is normal compressibility, flow, and augmentation within the right lower extremity deep venous structures. Partially occlusive thrombus is noted within the proximal to mid posterior tibial vein. No additional left lower extremity deep venous thrombus. IMPRESSION: 1. Partially occlusive thrombus of the left posterior tibial vein. 2. No sonographic evidence of right lower extremity DVT. ACT 112: Negative or not required by law. Electronically signed by: Leo Phillips M.D. 02/22/2021 8:09 AM Hospital Course (1) Pneumonia due to COVID-19 virus: IMPROVED/resolving during the stay with a 5-day course of Remdesivir, dexamethasone, diuresis, antibiotics, and oxygen support. O2 was weaned off by discharge. Following discharge she will only need 1 dose of dexamethasone at home. Antibiotics have been completed. She passed her 2-step oxygen test prior to discharge. Her COVID-19 illness was complicated by PE and LLE DVT - see below. She was placed on Eliquis and will complete at least 6 months of such. (2) Pulmonary embolism: CTA with PE in right upper lobe, segmental. Was initially on Lovenox BID. Ultimately transitioned to Eliquis 10mg BID x 1 week, then 5mg BID thereafter. Recommend at least 6 months of treatment. She may need lifelong anticoagulation given that this is her 2nd VTE event (had LE DVT in the past) in her lifetime and she has family h/o VTE (suggesting genetic trait/condition/hypercoagulability). Of note - dopplers of the LEs showed LLE DVT. (3) Paroxysmal SVT (supraventricular tachycardia): continue Diltiazem 120 mg daily none seen during this visit (4) KELLY (acute kidney injury): Peak Cr 2. Cr 0.8 at discharge. (5) Diabetes mellitus, type 2: HbA1c 8.3% Pharmacy provided glycemic recommendations and managed her basal-bolus insulin. She will continue metformin, lantus, and novolog as previous. (6) Hypertension: Losartan dose was reduced from 100mg to 50mg at discharge. Chlorthalidone was discontinued as her BPs were controlled without it. (7) Acid reflux disease: Continue Protonix 40 mg daily (8) Hypercholesterolemia: Continue Atorvastatin 20 mg daily Had mild transaminitis earlier in the stay - likely 2nd COVID - now resolved (9) Severe obstructive sleep apnea: cannot tolerate CPAP unfortunately; thus, does not use. would benefit, at minimum, from NC O2 at night-time. I asked her to speak with her PCP about obtaining an overnight oximetry study. Perhaps she would qualify for night-time NC O2. (10) Microcytic anemia: Iron studies normal. Consider outpatient hemoglobin electrophoresis to rule out thalaseemia. (11) Morbid obesity with BMI of 40.0-44.9, adult: BMI 40 (12) Abnormal liver function tests: 2nd COVID-19 infection. Serial labs showed normalization of her LFTs. Total Time Total Time Spent Total Time Spent (In Minutes): 50 Discharge Plan Discharge Items Patient Disposition: Home - Self-Care Reason For Visit: COVID-19 Pneumonia Discharge Diagnosis: 1. COVID-19 pneumonia - resolving 2. Pulmonary embolus (blood clot in lung) 3. DVT blood clot in the left leg 4. recent abnormal liver test due to COVID infection- resolved 5. untreated, severe sleep apnea - "overnight oximetry study" recommended Activity: As commented below Activity Comment: gradually increase your activities over the next 1-2 weeks Sexual Activity: Wait until after follow-up appointment Exercise/Sports: Wait until after follow-up appointment Driving/Machine Use: Resume 3 days after discharge Non-emergency contact: Primary Care Provider Call non-emergency contact if: you have any medication questions, your symptoms worsen and you have a fever Follow-up/Referrals: Janet Mcdonald CRNP [Primary Care Provider] - (1 week) Diet: Carb Consistent or DM2 Addtl Attending Provider Instructions: Mrs Manzo, Eric were admitted to [facility] for COVID-19 pneumonia. You required oxygen for most of your stay. This was successfully weaned off on 02/21/21. Your illness was complicated by the development of a DVT blood clot in your left leg as well as a blood clot in your lung (PE, pulmonary embolus). For reasons not fully understood having COVID-19 infection "thickens" the blood which raises the chances of developing blood clots while you are sick with COVID. On 02/22/21 you did a walking oxygen test and fortunately you do NOT need oxygen at home. This is great news. Recommendations - 1. You are about 15 days into your illness and you are unlikely to be contagious to others at this time. You technically do not need to isolate upon return home. However, I would recommend that you take the rest of the week and spend it at home recovering. Once you feel up to leaving your home and going out into the community please continue to wear your mask at all times in stores, restaurants, etc. 2. Take dexamethasone steroid - 6mg x 1 - TOMORROW, 02/23/21. You only need 1 additional dose. Take with food. 3. Eliquis blood thinner for DVT and PE - * starting TONIGHT, 02/22 - take 2 tablets of Eliquis twice daily for 6 days * THEN - take 1 tablet twice daily thereafter * you will need to take Eliquis for at least 6 months * please speak to your family doctor about whether you may need it lifelong since you have had blood clots in the past 4. See your family doctor in about 1 week. Virtual visit (zoom visit, phone call, etc) would be acceptable. 5. may use geoe-zzn-repsmyb mucinex up to 1200mg twice daily for cough/congestion. 6. Continue to check your oxygen levels on your finger a couple of times a day over the next week with your "pulse oximeter." If you are consistently less than 90% please seek medical attention right away. 7. Use your incentive spirometry and flutter valve frequently over the next week. 8. Continue to prone ("tummy time") as much as possible over the next few days. Or, if this is hard for you, try to lay on your side while sleeping/resting. 9. Strongly consider getting a flu shot this fall. 10. Strongly consider getting the COVID vaccine in about 3 months following your recovery to protect against future infection from COVID. 11. Since you are not treating your sleep apnea with CPAP please ask your family doctor to set you up for an 'overnight pulse oximetry study' which is done while you are sleeping at your home. 12. Other medication instructions - * LOWER your evening LANTUS dose to 45 units starting tonight * STOP your chlorthalidone * LOWER your losartan to 50mg once daily (you had been previously on 100mg) 13. Finally - know that the recovery time period for you could take several weeks. You may feel more tired than usual, short of breath with too much activity, etc. It is important to listen to your body and rest when needed. Return to [facility] if - * you have recurrent fevers over 100.5 degrees * you have worsening shortness of breath * you have chest pains * you have oxygen levels on your finger of less than 90% consistently * you have significant bleeding from any location as noted below * any other concerns It was our pleasure caring for you at [facility]! Please stay well and best wishes for a speedy recovery, Dr Errol Thapa [employer] Provider Instructions: Blood thinner medication Instructions: Your DVT / PE blood clot condition is typically treated with an anticoagulant. Anticoagulants will thin your blood to help prevent new clots. Your anticoagulant is called "ELIQUIS." * You should take her medication exactly as directed. * Never skip a dose. * Never take a double dose. If you miss a dose, take it as soon as you remember. Call your Primary Care doctor if you experience any of the following: * Swelling or Pain in your leg * Sudden, continuous pain deep in a muscle * Pain that worsens when you are active or when you stand still for a long time * Chest Pain * Sudden Shortness of Breath * Rapid or pounding heart beat * Fainting * Dizziness * Cough with blood or bloody sputum * Sweating more than normal * Bruises * Heavy or uncontrolled bleeding * Blood in your urine, stool or vomit * Black or tarry stools * Heavy nose bleeds Caring for Your Self at Home: * Avoid sitting, standing or lying down for long periods without moving your legs and feet * When traveling by car, stop to get out and move around at least once every 3 hours * On long airplane, train or bus rides, get up and move around when possible * If you can't get up, wiggle your toes and tighten your calves to keep your blood moving With eliquis you do not need blood work monitoring of the medication. You also do not need to modify/change your diet while taking eliquis. Pending Studies at Discharge: No Stand-Alone Forms: My [facility] [employer], Smoking Cessation Medications and DC Order Prescriptions: New Eliquis 5 mg tablet 5 mg PO .BID as directed Qty: 60 RF: 5 Continued escitalopram oxalate 5 mg tablet 5 mg PO DAILY Qty: 30 RF: 11 escitalopram oxalate 10 mg tablet 10 mg PO DAILY Qty: 30 RF: 11 Novolog Flexpen U-100 Insulin 100 unit/mL (3 mL) insulin pen See Rx Instructions subcut TID Qty: 30 RF: 11 (DME) OneTouch Ultra Blue Test Strip Strip See Dose Instructions .ROUTE .MEDSUPPLY Qty: 100 RF: 7 topiramate 50 mg tablet 50 mg PO BID Qty: 60 RF: 11 fluticasone propionate 50 mcg/actuation spray,suspension See Rx Instructions .ROUTE .COMPLEX Qty: 16 RF: 5 (DME) lancets [OneTouch UltraSoft Lancets] Misc See Rx Instructions .ROUTE .MEDSUPPLY Qty: 100 RF: 5 atorvastatin 20 mg tablet 20 mg PO DAILY Qty: 90 RF: 3 omeprazole 20 mg capsule,delayed release(DR/EC) 20 mg PO DAILY Qty: 90 RF: 3 Lantus Solostar U-100 Insulin 100 unit/mL (3 mL) insulin pen 45 unit SQ QAM RF: 0 cyanocobalamin (vitamin B-12) [Vitamin B-12] 1,000 mcg Tablet 1,000 mcg PO QAM RF: 0 cholecalciferol (vitamin D3) [Vitamin D3] 1,000 unit Capsule 1,000 unit PO QAM RF: 0 cetirizine 10 mg tablet 10 mg PO DAILY RF: 0 metformin 1,000 mg tablet 1,000 mg PO BID RF: 0 diltiazem HCl 120 mg capsule,extended release 24hr 120 mg PO DAILY RF: 0 Changed losartan 100 mg tablet 50 mg PO QPM Qty: 0 RF: 0 Lantus Solostar U-100 Insulin 100 unit/mL (3 mL) insulin pen 45 unit SUBCUT QPM Qty: 0 RF: 0 Discontinued chlorthalidone 25 mg tablet 25 mg PO DAILY RF: 0 Discharge Orders: Discharge Order (Routine); Ordered 02/22/21 Ordered By: Edis Wu/Other Patient Handouts: Caring for Someone Who Has COVID-19, Disinfecting Your Home of COVID-19, How COVID-19 Spreads, 2019-nCoV, COVID-19 Prevention, COVID-19 Home Care Admission Data Admit Date/Time: 02/14/21 18:11 Attending Provider: Edis Norton Admit Provider: Bob Curtis Primary Care Provider: Janet Mcdonald Other Providers: Bob Curtis Other Interventions: Discharge Summary Assessment (RN) Last Done: 02/22/21 13:12 Coding Level of Care Code D/C DAY MANAGEMENT >30 MINS Diagnoses Pneumonia due to COVID-19 virus U07.1; J12.82 Pulmonary embolism I26.99 Paroxysmal SVT (supraventricular tachycardia) I47.1 KELLY (acute kidney injury) N17.9 Diabetes mellitus, type 2 E11.9 Hypertension I10 Acid reflux disease K21.9 Hypercholesterolemia E78.00 Severe obstructive sleep apnea G47.33 Microcytic anemia D50.9 Morbid obesity with BMI of 40.0-44.9, adult E66.01; Z68.41 Abnormal liver function tests R94.5
== END 2021-02-22 15:23 | disposition home or self-care (01) | DRG 177 ==
LOC: ED 14:41 → 2W 18:11 → SUATTDRO 18:11 → 2W 22:49 → 3W 02-18 11:14 → 3N 02-21 16:07